=== PATIENT | female | born 1975 | race Caucasian/White ===

== ENCOUNTER 2019-03-01 06:28 | Inpatient (IN) | payer SELFPAY ==
[~2019-03-01] VITALS: Ht 165.1 cm; Wt 60.5 kg
[~2019-03-01 06:28] MED LIST: DOXY1TAB3 PO; HYDR25CA PO; IBUP-1773 PO; INDO25OR2 PO; PREN-53 PO; TRAM50TA2 PO
[2019-03-01] MEDS ORDERED: NS IV 1000 ML 1,000 ML IV ONE (06:39)
[2019-03-01] MEDS ORDERED: RT-ALBUTEROL/IPRATROPIUM 3 ML (DUONEB) VIAL INH ONE ×2 (06:45→07:15)
[2019-03-01 06:59] LABS: BASOPHILS % (AUTO) 0 % (0-10); EOSINOPHILS # (AUTO) 0.2 10^3/uL (0.0-0.3); EOSINOPHILS % (AUTO) 2 % (0-10); HEMATOCRIT 43 % (35-52); HEMOGLOBIN 14.2 G/DL (11.5-16.0); LYMPHOCYTES # (AUTO) 1.4 X 10^3 (1.0-4.0); LYMPHOCYTES % (AUTO) 11 % (12-44); MEAN CORPUSCULAR HEMOGLOBIN 32 PG (25-34); MEAN CORPUSCULAR HGB CONC 33 G/DL (32-36); MEAN CORPUSCULAR VOLUME 97 FL (80-99); MEAN PLATELET VOLUME 10.4 FL (7.4-10.4); MONOCYTES % (AUTO) 8 % (0-12); NEUTROPHILS % (AUTO) 79 % (42-75); PLATELET COUNT 224 10^3/uL (130-400); RED CELL DISTRIBUTION WIDTH 14.1 % (10.0-14.5); WHITE BLOOD COUNT 12.6 10^3/uL (4.3-11.0)
[2019-03-01] MEDS ORDERED: RT-ALBUTEROL SULF 2.5 MG/3 ML PRE-MIX VIAL INH STA (07:04)
[2019-03-01] MEDS ORDERED: methylPREDNISolone 125 MG (Solu-MEDROL) VIAL IVP ONE (07:15)
[2019-03-01] MEDS ORDERED: KETOROLAC 30 MG/ML VIAL IVP ONE (07:15)
[2019-03-01 07:17] LABS: ALANINE AMINOTRANSFERASE 11 U/L (0-55); ALBUMIN 4.3 GM/DL (3.2-4.5); ALKALINE PHOSPHATASE 54 U/L (40-136); BILIRUBIN,TOTAL 0.6 MG/DL (0.1-1.0); BUN/CREATININE RATIO 22; CALCIUM 9.8 MG/DL (8.5-10.1); CARBON DIOXIDE 26 MMOL/L (21-32); CHLORIDE 107 MMOL/L (98-107); CREATININE SERUM 0.64 MG/DL (0.60-1.30); GFR ESTIMATED > 60; GLUCOSE 98 MG/DL (70-105); POTASSIUM 3.5 MMOL/L (3.6-5.0); SODIUM 143 MMOL/L (135-145)
--- NOTE | 2019-03-01 07:46 | NUR ---
Pt unable to tolerate breathing treatment at this time. Treatment stopped by Dr. Patterson.
--- NOTE | 2019-03-01 08:10 | ED General ---
General Chief Complaint: Respiratory Problems Stated Complaint: SOB, SEVERE HEADACHE Nursing Triage Note: PT PRESENTS TO THE ED AMBULATORY FROM HOME, STATES SHE WAS SEEN IN PCP OFFICE 2-3 DAYS AGO FOR A NON PRODUCTIVE COUGH AND RESPIRATORY PROBLEMS, SHE WAS GIVEN ORAL MEDS AND SENT HOME, SINCE THEN PT REPORTS FEVERS AND CHILLS WITH EXERTIONAL SOB AND INTERMITTENT COUGH THAT IS SOME TIMES PRODUCTIVE OF GREENISH SPUTUM Nursing Sepsis Screen: Possible Sepsis Risk Source of Information: Patient Exam Limitations: No Limitations History of Present Illness Date Seen by Provider: Mar 01, 2019 Time Seen by Provider: 06:34 Initial Comments This 44-year-old woman presents to the emergency room with shortness of breath and wheezing. She has cough productive of green sputum. She is now febrile. She was seen a couple days ago in the clinic where she was prescribed azithromycin, prednisone, and Tessalon Perles. She continues to worsen despite these therapies. She also complains of intense headache. Allergies and Home Medications Allergies Coded Allergies: Penicillins (Verified Allergy, Unknown, 03/06/15) Home Medications Hydroxyzine Pamoate 25 Mg Capsule, 25 MG PO Q6H PRN for ANXIETY Prescribed by: VANDA SON on 06/06/16 1234 Tramadol HCl 50 Mg Tablet, 50 MG PO QID Prescribed by: RENEE MAY on 07/19/15 1151 Patient Home Medication List Home Medication List Reviewed: Yes Review of Systems Review of Systems Constitutional: see HPI EENTM: throat pain Respiratory: see HPI Cardiovascular: no symptoms reported Gastrointestinal: no symptoms reported Genitourinary: no symptoms reported : No Musculoskeletal: no symptoms reported Skin: no symptoms reported Psychiatric/Neurological: See HPI Hematologic/Lymphatic: No Symptoms Reported Immunological/Allergic: no symptoms reported Past Qwlevci-Pbwlkg-Ibqsor Hx Past Med/Social Hx: Reviewed and Corrections made Patient Social History Alcohol Use: Denies Use Recreational Drug Use: No Smoking Status: Current Everyday Smoker Type Used: Cigarettes Recent Foreign Travel: No Contact w/Someone Who Travel: No Recent Infectious Disease Expo: No Recent Hopitalizations: No Immunizations Up To Date Tetanus Booster (TDap): Unknown PED Vaccines UTD: Yes Past Medical History Surgeries: Yes (D&C, FOOT (SCREWS), PART OF CERVIX REMOVED) Respiratory: Yes (tobaccoism) Cardiac: Yes Irregular Heartbeat Neurological: No : No Last Menstrual Period: Feb 20, 2019 Reproductive Disorders: Yes (INCOMP. CERVIX) Female Reproductive Disorders: Denies Sexually Transmitted Disease: No HIV/AIDS: No Gastrointestinal: No Musculoskeletal: No Endocrine: No HEENT: No Loss of Vision: Bilateral Hearing Impairment: Denies Cancer: Yes Cervical Psychosocial: No Integumentary: No Blood Disorders: No Adverse Reaction/Blood Tranf: No Family Medical History Cancer of mouth FH: asthma (mother's side) FH: brain cancer FH: heart disease (Mother and father's side) FH: ovarian cancer (Mother's side) Physical Exam-Suspected Sepsis Physical Exam Vital Signs Vital Signs - First Documented 03/01/19 06:44 Temp 100.4 Pulse 117 Resp 22 B/P (MAP) 118/82 (94) Pulse Ox 90 O2 Delivery Room Air Capillary Refill : Less Than 3 Seconds Blood Pressure Mean: 94 Height, Weight, BMI Height: 5'3" Weight: 130lbs. 0.0oz. 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 as Tested Skin: normal color, warm/dry Focused Exam Lactate Level 03/01/19 06:46: Lactic Acid Level 1.15 Lactic Acid Level Laboratory Tests Test 03/01/19 06:46 Lactic Acid Level 1.15 MMOL/L (0.50-2.00) Progress/Results/Core Measures Suspected Sepsis Recent Fever Within 48 Hours: Yes Infection Criteria Present: Suspected New Infection New/Unexplained Altered Menta: No Sepsis Screen: Possible Sepsis Risk SIRS Temperature:100.4 Pulse: 117 Respiratory Rate: 22 Laboratory Tests 03/01/19 06:46: White Blood Count 12.6H Blood Pressure 118 /82 Mean: 94 03/01/19 06:46: Lactic Acid Level 1.15 Laboratory Tests 03/01/19 06:46: Creatinine 0.64, Platelet Count 224, Total Bilirubin 0.6 03/01/19 06:48: INR Comment 1.0 Results/Orders Lab Results Laboratory Tests Test 03/01/19 06:46 03/01/19 06:48 03/01/19 07:45 Range/Units White Blood Count 12.6 H 4.3-11.0 10^3/uL Red Blood Count 4.48 4.35-5.85 10^6/uL Hemoglobin 14.2 11.5-16.0 G/DL Hematocrit 43 35-52 % Mean Corpuscular Volume 97 80-99 FL Mean Corpuscular Hemoglobin 32 25-34 PG Mean Corpuscular Hemoglobin Concent 33 32-36 G/DL Red Cell Distribution Width 14.1 10.0-14.5 % Platelet Count 224 130-400 10^3/uL Mean Platelet Volume 10.4 7.4-10.4 FL Neutrophils (%) (Auto) 79 H 42-75 % Lymphocytes (%) (Auto) 11 L 12-44 % Monocytes (%) (Auto) 8 0-12 % Eosinophils (%) (Auto) 2 0-10 % Basophils (%) (Auto) 0 0-10 % Neutrophils # (Auto) 10.0 H 1.8-7.8 X 10^3 Lymphocytes # (Auto) 1.4 1.0-4.0 X 10^3 Monocytes # (Auto) 1.0 0.0-1.0 X 10^3 Eosinophils # (Auto) 0.2 0.0-0.3 10^3/uL Basophils # (Auto) 0.0 0.0-0.1 10^3/uL Sodium Level 143 135-145 MMOL/L Potassium Level 3.5 L 3.6-5.0 MMOL/L Chloride Level 107 98-107 MMOL/L Carbon Dioxide Level 26 21-32 MMOL/L Anion Gap 10 5-14 MMOL/L Blood Urea Nitrogen 14 7-18 MG/DL Creatinine 0.64 0.60-1.30 MG/DL Estimat Glomerular Filtration Rate > 60 BUN/Creatinine Ratio 22 Glucose Level 98 70-105 MG/DL Lactic Acid Level 1.15 0.50-2.00 MMOL/L Calcium Level 9.8 8.5-10.1 MG/DL Corrected Calcium 9.6 8.5-10.1 MG/DL Total Bilirubin 0.6 0.1-1.0 MG/DL Aspartate Amino Transf (AST/SGOT) 12 5-34 U/L Alanine Aminotransferase (ALT/SGPT) 11 0-55 U/L Alkaline Phosphatase 54 40-136 U/L C-Reactive Protein High Sensitivity 0.92 H 0.00-0.50 MG/DL Total Protein 7.0 6.4-8.2 GM/DL Albumin 4.3 3.2-4.5 GM/DL Serum Test, Qualitative NEGATIVE NEGATIVE Prothrombin Time 13.4 12.2-14.7 SEC INR Comment 1.0 0.8-1.4 Activated Partial Thromboplast Time 34 24-35 SEC Urine Color YELLOW Urine Clarity CLEAR Urine pH 7 5-9 Urine Specific [place] 1.010 L 1.016-1.022 Urine Protein NEGATIVE NEGATIVE Urine Glucose (UA) NEGATIVE NEGATIVE Urine Ketones NEGATIVE NEGATIVE Urine Nitrite NEGATIVE NEGATIVE Urine Bilirubin NEGATIVE NEGATIVE Urine Urobilinogen NORMAL NORMAL MG/DL Urine Leukocyte Esterase NEGATIVE NEGATIVE Urine RBC (Auto) NEGATIVE NEGATIVE Urine RBC NONE /HPF Urine WBC NONE /HPF Urine Squamous Epithelial Cells RARE /HPF Urine Crystals NONE /LPF Urine Bacteria NEGATIVE /HPF Urine Casts NONE /LPF Urine Mucus NEGATIVE /LPF Urine Culture Indicated CULTURE PENDING Micro Results Microbiology 03/01/19 Influenza Types A,B Antigen (MANJU) - Final, Complete My Orders Orders - FRANSISCO RODRÍGUEZ MD Albuterol/Ipra Inhalation Soln (Duoneb I (03/01/19 06:45) Svn Small Volume Nebulizer (03/01/19 06:39) Cbc With Automated Diff (03/01/19 06:39) Comprehensive Metabolic Panel (03/01/19 06:39) Hs C Reactive Protein (03/01/19 06:39) Hcg,Qualitative Serum (03/01/19 06:39) Influenza A And B Antigens (03/01/19 06:39) Chest Pa/Lat (2 View) (03/01/19 06:39) Ed Iv/Invasive Line Start (03/01/19 06:39) Ns Iv 1000 Ml (Sodium Chloride 0.9%) (03/01/19 06:39) Methylprednisolone Sod Succ (Solu-Medrol (03/01/19 07:15) Ketorolac Injection (Toradol Injection) (03/01/19 07:15) Albuterol Pre-Mix Nebs (Rt) (Proventil (03/01/19 07:04) Albuterol/Ipra Inhalation Soln (Duoneb I (03/01/19 07:15) Svn Small Volume Nebulizer (03/01/19 07:04) Svn Small Volume Nebulizer (03/01/19 07:04) Blood Culture (03/01/19 07:47) Sputum Culture (03/01/19 07:47) Urinalysis (03/01/19 07:47) Urine Culture (03/01/19 07:47) Protime With Inr (03/01/19 07:47) Partial Thromboplastin Time (03/01/19 07:47) Vital Signs Adult Sepsis Patie Q15M (03/01/19 07:47) O2 (03/01/19 07:47) Remove Rings In Anticipation O (03/01/19 07:47) Lactic Acid Analyzer (03/01/19 07:47) Acetaminophen Tablet (Tylenol Tablet) (03/01/19 08:45) Levofloxacin 750 Mg/150 Ml Iv (Levaquin (03/01/19 08:45) Medications Given in ED Current Medications Medications Dose Ordered Sig/Juan Pablo Route Start Time Stop Time Status Last Admin Dose Admin Acetaminophen 1,000 mg ONCE ONCE PO 03/01/19 08:45 03/01/19 08:46 03/01/19 08:36 1,000 MG Albuterol/ Ipratropium 3 ml ONCE ONCE INH 03/01/19 06:45 03/01/19 06:46 DC 03/01/19 06:47 3 ML Albuterol/ Ipratropium 3 ml ONCE ONCE INH 03/01/19 07:15 03/01/19 07:16 DC 03/01/19 07:10 3 ML Ketorolac Tromethamine 15 mg ONCE ONCE IVP 03/01/19 07:15 03/01/19 07:16 DC 03/01/19 07:15 15 MG Methylprednisolone Sodium Succinate 125 mg ONCE ONCE IVP 03/01/19 07:15 03/01/19 07:16 DC 03/01/19 07:17 125 MG Sodium Chloride 1,000 ml @ 0 mls/hr Q0M ONCE IV 03/01/19 06:39 03/01/19 06:42 DC 03/01/19 07:14 1,000 MLS/HR Vital Signs/I&O 03/01/19 03/01/19 03/01/19 06:44 06:47 07:11 Temp 100.4 Pulse 117 Resp 22 B/P (MAP) 118/82 (94) Pulse Ox 90 93 95 O2 Delivery Room Air Room Air Room Air Capillary Refill : Less Than 3 Seconds Blood Pressure Mean: 94 Progress Note #1: Time: 08:10 Progress Note Patient was immediately seen and examined. She was still tight and wheezing after DuoNeb treatment. An hour-long treatment was started. Patient had intolerable coughing during the nebulizer treatment and had to take a break. She was reexamined part way through the nebulizer treatment and did have impro vement in wheezing but still had reduced air movement. Nebulizer treatment- induced production of dark green sputum. IV fluids were initiated. Toradol was given for headache. Solu-Medrol was administered for treatment of wheezing. Chest x-ray has been reviewed. No overt pneumonia was identified. Report is pending. Patient was allowed to take her home propranolol at her request. Progress Note #2: Time: 08:44 Progress Note Patient is fairly comfortable now after completing the hour-long treatment. She has able to rest and her coughing has ceased. The radiologist read her x-ray as suspected pneumonia with bibasilar infiltrates. Levaquin is being administered due to penicillin allergy. Case was discussed with Dr. Hopkins and Dr. Gan who agrees with admission. Orders were reviewed. Diagnostic Imaging Diagonstic Imaging: Xray Plain Films/CT/US/NM/MRI: chest Comments Chest x-ray viewed by me and report reviewed. See report below: NAME: ERIN KLEIN [facility] REC#: [id number] PT STATUS: REG ER : 1975 PHYSICIAN: FRANSISCO RODRÍGUEZ MD ADMIT DATE: 03/01/19/ER Draft Date of Exam:03/01/19 CHEST PA/LAT (2 VIEW) Indication: Cough and fever and chills PA and lateral chest obtained at 8:02 hours am, and compared to 06/06/2016. Heart is normal in size. Mediastinal silhouette is unremarkable. There is hyperinflation compatible with COPD. There is mild bibasilar infiltrates, suspect early pneumonia. Followup is recommended. There is no pneumothorax or pleural fluid. IMPRESSION: COPD changes. There appear to be mild bibasilar infiltrates, suspect early pneumonia. Followup is recommended. Dictated on workstation # [id number] Dict: 03/01/19 0803 Trans: 03/01/19 0809 [place] [id number] Interpreted by: AMILCAR GREENWOOD MD Departure Communication (Admissions) Time/Spoke to Admitting Phy: 08:30 Dr. Hopkins Time/Spoke to Consulting Phy: 08:30 Dr. Gan Impression Primary Impression: Bilateral pneumonia Qualified Codes: J18.1 - Lobar pneumonia, unspecified organism Additional Impressions: Sepsis Qualified Codes: A41.9 - Sepsis, unspecified organism COPD exacerbation Disposition: ADMITTED INPATIENT Condition: Improved Admissions Decision to Admit Reason: Admit from ER (General) Decision to Admit/Date: Mar 01, 2019 Time/Decision to Admit Time: 08:15 Departure-Patient Inst. Referrals: OPAL PINEDA MD (PCP/Family) Primary Care Physician FRANSISCO RODRÍGUEZ MD Mar 01, 2019 08:10
[2019-03-01 08:12] LABS: PROTHROMBIN TIME PATIENT 13.4 SEC (12.2-14.7)
[2019-03-01 08:17] LABS: BILIRUBIN,URINE NEGATIVE (NEGATIVE); CLARITY,URINE CLEAR; COLOR,URINE YELLOW; GLUCOSE, URINE (UA) NEGATIVE (NEGATIVE); KETONES,URINE NEGATIVE (NEGATIVE); LEUKOCYTE ESTERASE ,URINE NEGATIVE (NEGATIVE); NITRITE,URINE NEGATIVE (NEGATIVE); PH,URINE 7 (5-9); PROTEIN,URINE NEGATIVE (NEGATIVE); UROBILINOGEN,URINE NORMAL (NORMAL)
[2019-03-01 08:27] LABS: BACTERIA,URINE NEGATIVE /HPF; SQUAMOUS EPITHELIAL CELL,UR RARE /HPF
[2019-03-01] MEDS ORDERED: ACETAMINOPHEN 500 MG TAB (TYLENOL) PO ONE (08:45)
[2019-03-01] MEDS ORDERED: LEVOFLOXACIN 750 MG/150 ML IV 150 ML IV ONE (08:45)
--- NOTE | 2019-03-01 10:00 | NUR ---
Approximately 75 ml of levaquin in when pt began complaining of itching. Dr. Patterson notified and IV stopped
[2019-03-01] MEDS ORDERED: diphenhydrAMINE 50 MG/ML INJ (BENADRYL) IVP ONE (10:15)
[2019-03-01] MEDS ORDERED: MEROPENEM 1,000 MG in WATER (STERILE) FOR INJECTION 20 ML IV ONE (10:15)
[2019-03-01 11:20] VITALS: BP 102/59
--- NOTE | 2019-03-01 11:25 | NUR ---
ERIN KLEIN admitted to room 431-1, with an admitting diagnosis of SEPSIS, PNEUMONIA, COPD, on 03/01/19 from ER via W/C, accompanied by STAFF.ERIN KLEIN introduced to surroundings, call light, bed controls, phone, TV, temperature control, lights, meal times, smoking policy, visitor policy, side rail policy, bathrooms and showers. Patient Rights given to patient in the handbook.ERNIEEUGENIO verbalizes understanding that [facility] is not responsible for the loss or damage to any personal effects or valuables that are kept in the patients posession during their hospitalization. The following Patient Care Plans were discussed with the PT: Discharge Planning, PAIN CONTROL,IV THERAPY AND ANTIBIOTIC TX, and TESTS AND PROCEDURES AND RT TX. ERIN KLEIN verbalizes understanding of Interdisciplinary Patient Education. Patient and/or family were informed about the Rapid Response Team and its purpose.
[2019-03-01 11:44] VITALS: BP 105/75
--- NOTE | 2019-03-01 12:39 | Pulmonary Consultation ---
EDA JARAMILLO,MED STUDENT 03/01/19 1239: History of Present Illness History of Present Illness Date of Consultation 03/01/19 12:34 Time Seen by Provider: 11:00 Date of Admission History of Present Illness patient is a 44-year-old caucasin female that presented to the ED with SOB and wheezing. She has a productive cough with green/yellow sputum. Symptoms started around wednesday and she went to the doctor to get treated and was prescribed azithromycin, prednisone and tessalon perles. her symptoms did not improve which resulted in her coming to the ED. She says that she is a current everyday smoker of 1-2ppd for >20 yrs. She denies any prior respiratory conditions but does adm it to having a irregular heart beat which she takes meds for. Patient is anxious, wants to leave and is over a poor historian. ROS - denies: nausea, vomiting, stomach pain, fever, chills - admits to SOB, productive cough, light-headed, headache, chest pain, malaise, photosensitivity Allergies and Home Medications Allergies Coded Allergies: levofloxacin (Verified Allergy, Mild, Itching, 03/01/19) Penicillins (Verified Allergy, Unknown, 03/06/15) Home Medications Albuterol Sulfate 1 Puff Puff, 2 PUFF IH Q4H PRN for SHORTNESS OF BREATH, (Reported) 1 PUFF = 90 MCG Ascorbic Acid/Ascorbate Sodium 250 Mg Tab.chew, 2 TAB.CHEW PO DAILY, (Reported) Benzonatate 100 Mg Capsule, 100 MG PO TID PRN for COUGH, (Reported) Doxycycline Hyclate 100 Mg Tablet, 100 MG PO BID@07,17 Prescribed by: MAXWELL ARNGEL on 03/03/19 08 Fluticasone Propionate 16 Gm [place].susp, 2 SPRAYS NS DAILY, (Reported) Ibuprofen 200 Mg Tablet, 600 MG PO TID, (Reported) TAKES 3 (200MG) TABLETS Multivit with Calcium,Iron,Min 1 Each Tablet, 1 TAB PO DAILY, (Reported) [place]-3 Fatty Acids 1,000 Mg Capsule, 1,000 MG PO HS, (Reported) Prednisone 10 Mg Tab, 0 PO UD Take 4 tabs (40mg) daily, decrease by 1 tab (10mg) daily. Prescribed by: MAXWELL RANGEL on 03/03/19 08 Propranolol HCl 20 Mg Tablet, 10 MG PO QID, (Reported) TAKES 1/2 (20MG) TABLET Vitamin B Complex 1 Each Capsule, 1 CAP PO HS, (Reported) Past Xvbpdfx-Lawwrw-Tnvsvb Hx Past Med/Social Hx: Reviewed and Corrections made Patient Social History Alcohol Use: Denies Use Recreational Drug Use: No Smoking Status: Current Everyday Smoker (2ppd for >20yrs ) Type Used: Cigarettes Recent Foreign Travel: No Contact w/Someone Who Travel: No Recent Infectious Disease Expo: No Recent Hopitalizations: No Immunizations Up To Date Tetanus Booster (TDap): Unknown PED Vaccines UTD: Yes Past Medical History Surgeries: Yes (D&C, FOOT (SCREWS), PART OF CERVIX REMOVED) Hysterectomy (partial cervicectomy ) Respiratory: Yes (tobaccoism) Cardiac: Yes ("irregular heart beat" - patient ) Atrial Fibrillation, Irregular Heartbeat Neurological: No : No Last Menstrual Period: Feb 20, 2019 Reproductive Disorders: Yes (INCOMP. CERVIX) Female Reproductive Disorders: Denies Sexually Transmitted Disease: No HIV/AIDS: No Gastrointestinal: No Musculoskeletal: No Endocrine: No HEENT: No Loss of Vision: Bilateral Hearing Impairment: Denies Cancer: Yes Cervical Psychosocial: No Integumentary: No Blood Disorders: No Adverse Reaction/Blood Tranf: No Family Medical History Cancer of mouth Congenital heart disease 19 FATHER FH: asthma (mother's side) 19 MOTHER FH: brain cancer FH: heart disease (Mother and father's side) FH: ovarian cancer (Mother's side) Review of Systems Constitutional: Malaise; No: Fever, Chills Eyes: No: Vision change Respiratory: Cough, Shortness of breath, SOB with excertion, Sputum Cardiovascular: Chest Pain (stenal chest pain ), Lt Headedness Gastrointestinal: No: Nausea, Vomiting, Abdominal Pain Sepsis Event Evaluation Height, Weight, BMI Height: 5'5.00" Weight: 133lbs. 6.0oz. 60.982800pd; 22.2 BMI Method:Estimated Exam Exam Vital Signs Date Time Temp Pulse Resp B/P (MAP) Pulse Ox O2 Delivery O2 Flow Rate FiO2 03/01/19 11:44 99.1 82 20 105/75 95 Room Air 03/01/19 11:36 Room Air 03/01/19 11:20 98.2 102 20 102/59 (73) 94 Room Air 03/01/19 11:11 99.1 82 20 105/75 (85) 95 Room Air 03/01/19 07:11 95 Room Air 03/01/19 06:47 93 Room Air 03/01/19 06:44 100.4 117 22 118/82 (94) 90 Room Air Height & Weight Height: 5'5.00" Weight: 133lbs. 6.0oz. 60.743454vq; 22.2 BMI Method:Estimated General Appearance: WD/WN, Moderate Distress Neck: Normal Inspection Respiratory: Lungs Clear, Normal Breath Sounds, No Accessory Muscle Use, No Respiratory Distress Cardiovascular: No Edema, No Murmur, Tachycardia Capillary Refill: Less Than 3 Seconds Peripheral Pulses: 2+ Dorsalis Pedis (R), 2+ Left Dors-Pedis (L), 2+ Radial Pulses (R), 2+ Radial Pulses (L) Gastrointestinal: normal bowel sounds, non tender, soft Extremity: Normal Inspection, Non Tender, No Calf Tenderness, No Pedal Edema Neurologic/Psychiatric: Alert, Oriented x3, No Motor/Sensory Deficits, Normal Mood/Affect, 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 Norm as Tested Skin: Normal Color, Warm/Dry Results Lab Laboratory Tests 03/01/19 06:46 Assessment/Plan Assessment/Plan Acute respiratory distress - possible exaceration of undiagnosised asthma, COPD, - CXR finding show hyperinflation of lungs compatible with early COPD changes - indication of early pneumonia - Albuterol - albuterol/ipratropium suspected sepsis likely d/t to pneumonia - CXR - sputum and blood cultures - IV meropenem - IV NS bolus DL GAN DO 03/01/19 1430: History of Present Illness History of Present Illness Time Seen by Provider: 14:24 History of Present Illness 44yo current smoker presented to ED secondary to worsening SOB, green/yellow sputum production and wheezing. she was Rx azithromycin, and prednisone as an out pt. Everyday smoker of 1-2ppd for >20 yrs. Denies: nausea, vomiting, stomach pain, fever, chills. Allergies and Home Medications Allergies Coded Allergies: levofloxacin (Verified Allergy, Mild, Itching, 03/01/19) Penicillins (Verified Allergy, Unknown, 03/06/15) Home Medications Albuterol Sulfate 1 Puff Puff, 2 PUFF IH Q4H PRN for SHORTNESS OF BREATH, (Reported) 1 PUFF = 90 MCG Ascorbic Acid/Ascorbate Sodium 250 Mg Tab.chew, 2 TAB.CHEW PO DAILY, (Reported) Benzonatate 100 Mg Capsule, 100 MG PO TID PRN for COUGH, (Reported) Doxycycline Hyclate 100 Mg Tablet, 100 MG PO BID@07,17 Prescribed by: MAXWELL RANGEL on 03/03/19 08 Fluticasone Propionate 16 Gm [place].susp, 2 SPRAYS NS DAILY, (Reported) Ibuprofen 200 Mg Tablet, 600 MG PO TID, (Reported) TAKES 3 (200MG) TABLETS Multivit with Calcium,Iron,Min 1 Each Tablet, 1 TAB PO DAILY, (Reported) [place]-3 Fatty Acids 1,000 Mg Capsule, 1,000 MG PO HS, (Reported) Prednisone 10 Mg Tab, 0 PO UD Take 4 tabs (40mg) daily, decrease by 1 tab (10mg) daily. Prescribed by: MAXWELL RANGEL on 03/03/19805 Propranolol HCl 20 Mg Tablet, 10 MG PO QID, (Reported) TAKES 1/2 (20MG) TABLET Vitamin B Complex 1 Each Capsule, 1 CAP PO HS, (Reported) Past Apzifiz-Xekwaz-Zftqbd Hx Family Medical History Cancer of mouth Congenital heart disease 19 FATHER FH: asthma (mother's side) 19 MOTHER FH: brain cancer FH: heart disease (Mother and father's side) FH: ovarian cancer (Mother's side) Review of Systems Time Seen by Provider: 07:10 Constitutional: No: Fever, Chills Eyes: No: Vision change Respiratory: Cough, Shortness of breath, SOB with excertion, Sputum Cardiovascular: Chest Pain (stenal chest pain ), Lt Headedness Gastrointestinal: No: Nausea, Vomiting, Abdominal Pain Exam Exam General Appearance: WD/WN, Moderate Distress Respiratory: Normal Breath Sounds, No Accessory Muscle Use, No Respiratory Distress, Wheezing Cardiovascular: No Edema, No Murmur, Tachycardia Gastrointestinal: normal bowel sounds, non tender, soft Extremity: Normal Inspection, Non Tender, No Calf Tenderness, No Pedal Edema Neurologic/Psychiatric: Alert, Oriented x3, No Motor/Sensory Deficits, Normal Mood/Affect, 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 I re viewed and verified all information documented by the medical student and made modifications to such information, when appropriate. I personally performed the physical exam and medical decision making. Dl Gan, Mar 01, 2019,14:35 Supervisory-Addendum Brief Verification & Attestation Participated in pt care: history Personally performed: exam, history Care discussed with: Medical Student Procedures: n/a Verification and Attestation of Medical Student E/M Service A medical student performed and documented this service in my presence. I reviewed and verified all information documented by the medical student and made modifications to such information, when appropriate. I personally performed the physical exam and medical decision making. Dl Gan, Mar 07, 2019,07:09 EDA JARAMILLO,MED STUDENT Mar 01, 2019 12:39 DL GAN DO Mar 01, 2019 14:30
[2019-03-01] MEDS ORDERED: NICOTINE PATCH REMOVAL TP PRN (12:45)
[2019-03-01] MEDS ORDERED: ACETAMINOPHEN 500 MG TAB (TYLENOL) PO PRN (12:45)
[2019-03-01] MEDS ORDERED: RT-ALBUTEROL SULF 2.5 MG/3 ML PRE-MIX VIAL IH PRN (12:45)
[2019-03-01] MEDS ORDERED: CATHETER FLUSH 10 ML SYR IV PRN (12:45)
[2019-03-01] MEDS ORDERED: NICOTINE 21 MG (NICODERM) PATCH TD PRN (12:45)
[2019-03-01] MEDS: ENOXAPARIN 40 MG/0.4 ML (LOVENOX) SYR SQ SCH (12:50)
[2019-03-01] MEDS: NS IV 1000 ML 1,000 ML IV SCH ×2 (12:50→19:38)
[2019-03-01] MEDS: methylPREDNISolone 40 MG/ML (Solu-MEDROL) VIAL IV SCH ×2 (12:58→17:17)
[2019-03-01] MEDS ORDERED: BENZ-36 PO (13:29)
[2019-03-01] MEDS ORDERED: FLUT16SP22 NS (13:30)
[2019-03-01] MEDS ORDERED: AZIT250T12 PO (13:30)
[2019-03-01] MEDS ORDERED: PROP20TA5 PO (13:30)
[2019-03-01] MEDS ORDERED: RT-ALBUINH IH (13:30)
[2019-03-01] MEDS ORDERED: PRD50T PO (13:30)
[2019-03-01] MEDS ORDERED: VITA1CAP19 PO (13:31)
[2019-03-01] MEDS ORDERED: OMEG10005 PO (13:31)
[2019-03-01] MEDS ORDERED: [UNRECOGNIZED DRUG - CODE] PO (13:31)
[2019-03-01] MEDS ORDERED: IBUP-30 PO (13:31)
[2019-03-01] MEDS ORDERED: MULT-141 PO (13:31)
--- NOTE | 2019-03-01 13:32 | NUR ---
SPOKE WITH THE PATIENT ABOUT HER MEDICATIONS. SHE HAS THE THREE SCRIPTS SHE FILLED FROM THE WALK IN CLINIC WITH HER ON 02-26-19 - SHE STATES SHE HAS NOT FINISHED THEM YET. SHE ALSO HAS HER PROPRANOLOL FILLED 20MG BID #60 02-21-19 - SHE STATES SHE CAN NOT TAKE A WHOLE TABLET AT ONCE SO SHE TAKES 1/2 TAB QID. SHE ALSO REPORTS SHE USES FLONASE DAILY AND AN ALBUTEROL INHALER NEEDED. SHE TAKES THE FOLLOWING OTC: VITAMIN C GUMMIE 2 DAILY WOMEN'S ONE DAILY DAILY OMEGA 3 HS SUPER B COMPLEX HS IBU 3 TABS TID
[2019-03-01] MEDS: RT-ALBUTEROL/IPRATROPIUM 3 ML (DUONEB) VIAL IH SCH ×3 (14:48→22:56)
[2019-03-01 15:22] LABS: ABG BASE EXCESS 0.2 MMOL/L (-2.5-2.5); ABG OXYGEN SATURATION 96 % (94-100); ABG PCO2 35 MMHG (35-45); ABG PH 7.45 (7.37-7.43); ABG PO2 69 MMHG (79-93); ABG TCO2 24.9 MMOL/L (21.0-31.0)
[2019-03-01 15:26] LABS: ALLENS TEST POSITIVE; INSPIRED O2 21%; PATIENT TEMP 97.6; VENTILATOR NO
[2019-03-01 15:54] VITALS: BP 102/65
[2019-03-01] MEDS: IBUPROFEN 600 MG (MOTRIN) TAB PO PRN (16:53)
[2019-03-01] MEDS ORDERED: PATIENT MAY USE OWN MED,SINGLE MED PO SCH (17:15)
[2019-03-01] MEDS: MEROPENEM 500 MG/SWFI 10 ML IV PUSH IV SCH ×2 (17:18)
[2019-03-01 20:07] VITALS: BP 114/69
[2019-03-01] MEDS: PROPRANOLOL 20 MG (INDERAL) TABLET PO SCH (20:31)
--- NOTE | 2019-03-01 20:34 | History & Physical ---
HPI History of Present Illness: 44 yo female came to ER due to feeling poorly- short of breath, coughing, headache, rib and abdominal pain with coughing and feeling hot and cold. She was seen on Wednesday and given azithromycin and tessalon, felt slightly better for a brief period but then became worse again. Denies history of COPD or asthma, but does have inhaler she has used in past when sick. Date seen by provider: Mar 01, 2019 Time Seen by Provider: 11:30 Attending Physician Saba Hopkins MD PCP Silas Babb MD Consult Date of Admission Mar 01, 2019 at 09:47 Home Medications Home Medications Reviewed patient Home Medication Reconciliation performed by pharmacy medication reconciliations wildlife biology technician and/or nursing. Patients Allergies have been reviewed. Allergies Coded Allergies: levofloxacin (Verified Allergy, Mild, Itching, 03/01/19) Penicillins (Verified Allergy, Unknown, 03/06/15) WPI-Hczqgx-Tdlwnj Hx Patient Social History Alcohol Use: Denies Use Recreational Drug Use: No Smoking Status: Current Everyday Smoker (2ppd for >20yrs ) Type Used: Cigarettes Recent Foreign Travel: No Contact w/other who traveled: No Recent Hopitalizations: No Recent Infectious Disease Expo: No Physical Abuse Screen: No Sexual Abuse: No Immunizations Up To Date Tetanus Booster (TDap): Unknown Past Medical History PMHx: Denies Family Medical History Family History: Cancer of mouth Congenital heart disease 19 FATHER FH: asthma (mother's side) 19 MOTHER FH: brain cancer FH: heart disease (Mother and father's side) FH: ovarian cancer (Mother's side) Review of Systems ([facility]) Constitutional: chills, fever, malaise EENTM: nose congestion, throat pain Respiratory: cough, short of breath Cardiovascular: No chest pain Gastrointestinal: abdominal pain; No constipation, No diarrhea; nausea; No vomiting Genitourinary: No dysuria Musculoskeletal: No joint pain, No muscle pain Skin: No rash Reviewed Test Results Reviewed Test Results Lab Laboratory Tests Test 03/01/19 06:46 03/01/19 06:48 03/01/19 07:45 03/01/19 15:14 Range/Units White Blood Count 12.6 H 4.3-11.0 10^3/uL Red Blood Count 4.48 4.35-5.85 10^6/uL Hemoglobin 14.2 11.5-16.0 G/DL Hematocrit 43 35-52 % Mean Corpuscular Volume 97 80-99 FL Mean Corpuscular Hemoglobin 32 25-34 PG Mean Corpuscular Hemoglobin Concent 33 32-36 G/DL Red Cell Distribution Width 14.1 10.0-14.5 % Platelet Count 224 130-400 10^3/uL Mean Platelet Volume 10.4 7.4-10.4 FL Neutrophils (%) (Auto) 79 H 42-75 % Lymphocytes (%) (Auto) 11 L 12-44 % Monocytes (%) (Auto) 8 0-12 % Eosinophils (%) (Auto) 2 0-10 % Basophils (%) (Auto) 0 0-10 % Neutrophils # (Auto) 10.0 H 1.8-7.8 X 10^3 Lymphocytes # (Auto) 1.4 1.0-4.0 X 10^3 Monocytes # (Auto) 1.0 0.0-1.0 X 10^3 Eosinophils # (Auto) 0.2 0.0-0.3 10^3/uL Basophils # (Auto) 0.0 0.0-0.1 10^3/uL Sodium Level 143 135-145 MMOL/L Potassium Level 3.5 L 3.6-5.0 MMOL/L Chloride Level 107 98-107 MMOL/L Carbon Dioxide Level 26 21-32 MMOL/L Anion Gap 10 5-14 MMOL/L Blood Urea Nitrogen 14 7-18 MG/DL Creatinine 0.64 0.60-1.30 MG/DL Estimat Glomerular Filtration Rate > 60 BUN/Creatinine Ratio 22 Glucose Level 98 70-105 MG/DL Lactic Acid Level 1.15 0.50-2.00 MMOL/L Calcium Level 9.8 8.5-10.1 MG/DL Corrected Calcium 9.6 8.5-10.1 MG/DL Total Bilirubin 0.6 0.1-1.0 MG/DL Aspartate Amino Transf (AST/SGOT) 12 5-34 U/L Alanine Aminotransferase (ALT/SGPT) 11 0-55 U/L Alkaline Phosphatase 54 40-136 U/L C-Reactive Protein High Sensitivity 0.92 H 0.00-0.50 MG/DL Total Protein 7.0 6.4-8.2 GM/DL Albumin 4.3 3.2-4.5 GM/DL Serum Test, Qualitative NEGATIVE NEGATIVE Prothrombin Time 13.4 12.2-14.7 SEC INR Comment 1.0 0.8-1.4 Activated Partial Thromboplast Time 34 24-35 SEC Urine Color YELLOW Urine Clarity CLEAR Urine pH 7 5-9 Urine Specific [place] 1.010 L 1.016-1.022 Urine Protein NEGATIVE NEGATIVE Urine Glucose (UA) NEGATIVE NEGATIVE Urine Ketones NEGATIVE NEGATIVE Urine Nitrite NEGATIVE NEGATIVE Urine Bilirubin NEGATIVE NEGATIVE Urine Urobilinogen NORMAL NORMAL MG/DL Urine Leukocyte Esterase NEGATIVE NEGATIVE Urine RBC (Auto) NEGATIVE NEGATIVE Urine RBC NONE /HPF Urine WBC NONE /HPF Urine Squamous Epithelial Cells RARE /HPF Urine Crystals NONE /LPF Urine Bacteria NEGATIVE /HPF Urine Casts NONE /LPF Urine Mucus NEGATIVE /LPF Urine Culture Indicated CULTURE PENDING Blood Gas Puncture Site RIGHT RADIAL Blood Gas Patient Temperature 97.6 Arterial Blood pH 7.45 H 7.37-7.43 Arterial Blood Partial Pressure CO2 35 35-45 MMHG Arterial Blood Partial Pressure O2 69 L 79-93 MMHG Arterial Blood HCO3 24 23-27 MMOL/L Arterial Blood Total CO2 24.9 21.0-31.0 MMOL/L Arterial Blood Oxygen Saturation 96 94-100 % Arterial Blood Base Excess 0.2 -2.5-2.5 MMOL/L Humphrey Test POSITIVE Blood Gas Ventilator Setting NO Blood Gas Inspired Oxygen 21% Radiology CXR 03/01- patchy bibasilar infiltrates, COPD type changes Physical Exam-(CHC) Physical Exam Vital Signs VS - Last 72 Hours, by Label 03/01/19 03/01/19 03/01/19 03/01/19 06:44 06:47 07:11 11:11 Temp 100.4 99.1 Pulse 117 82 Resp 22 20 B/P (MAP) 118/82 (94) 105/75 (85) Pulse Ox 90 93 95 95 O2 Delivery Room Air Room Air Room Air Room Air 03/01/19 03/01/19 03/01/19 03/01/19 11:20 11:36 11:44 13:56 Temp 98.2 99.1 Pulse 102 82 86 Resp 20 20 B/P (MAP) 102/59 (73) 105/75 Pulse Ox 94 95 O2 Delivery Room Air Room Air Room Air 03/01/19 03/01/19 03/01/19 14:48 15:54 20:07 Temp 98.7 98.7 Pulse 84 63 Resp 20 20 B/P (MAP) 102/65 (77) 114/69 (84) Pulse Ox 94 95 97 O2 Delivery Room Air Room Air Room Air Capillary Refill : Less Than 3 Seconds General Appearance: mild distress Respiratory: lungs clear, normal breath sounds Cardiovascular: regular rate, rhythm, no murmur Gastrointestinal: normal bowel sounds, non tender, soft Extremities: no pedal edema Neurologic/Psychiatric: other (somnolent) Skin: normal color, warm/dry Assessment/Plan Assessment/Plan Admission Status: Inpatient Order (span 2 midnights) Reason for Inpatient Admission: Pneumonia, anticipate 2 nights at least for recovery (1) Bilateral pneumonia Status: Acute Assessment & Plan: Started on meropenem, allergic to PCN and levofloxacin. Flu neg. Qualifiers: Qualified Codes: J18.1 - Lobar pneumonia, unspecified organism (2) Sepsis Status: Acute Assessment & Plan: Leukocytosis, tachycardia and fever on admit. No evidence of severe sepsis. Qualifiers: Qualified Codes: A41.9 - Sepsis, unspecified organism (3) COPD exacerbation Status: Acute Assessment & Plan: Suspected, although no prior dx of COPD. Duonebs, Solumedrol. (4) DVT prophylaxis Status: Acute Assessment & Plan: Enoxaparin Clinical Quality Measures DVT/VTE Risk/Contraindication: Risk Factor Score Per Nursin RFS Level Per Nursing on Admit: 3=High SABA HOPKINS MD Mar 01, 2019 20:34
[2019-03-02 00:29] VITALS: BP 99/61
[2019-03-02] MEDS: MEROPENEM 500 MG/SWFI 10 ML IV PUSH IV SCH ×4 (00:37→05:52)
[2019-03-02] MEDS: methylPREDNISolone 40 MG/ML (Solu-MEDROL) VIAL IV SCH ×2 (00:37→05:52)
[2019-03-02] MEDS: RT-ALBUTEROL/IPRATROPIUM 3 ML (DUONEB) VIAL IH SCH ×6 (03:47→22:38)
[2019-03-02 04:11] VITALS: BP 108/70
[2019-03-02] MEDS: NS IV 1000 ML 1,000 ML IV SCH ×3 (05:52→23:21)
--- NOTE | 2019-03-02 06:35 | Pulmonary Progress Note ---
EDA JARAMILLO,MED STUDENT 03/02/19 0634: Subjective Date Seen by a Provider: Mar 02, 2019 Time Seen by a Provider: 06:31 Subjective/Events-last exam Patient says that she is feeling better but has not been sleep much since she started taking the steroids she was prescribed on Wednesday. She says she has a non-productive cough, some lightheadedness when she initially tries to get up, and a slight headache but denies, SOB, fever, chills, nausea, vomiting, stomach pain, chest pain Sepsis Event Evaluation Height, Weight, BMI Height: 5'5.00" Weight: 133lbs. 6.0oz. [id number]; 22.2 BMI Method:Estimated Focused Exam Lactate Level 03/01/19 06:46: Lactic Acid Level 1.15 Exam Exam Vital Signs Date Time Temp Pulse Resp B/P (MAP) Pulse Ox O2 Delivery O2 Flow Rate FiO2 03/02/19 04:11 98.6 72 18 108/70 (83) 94 Room Air 03/02/19 03:47 91 Room Air 03/02/19 01:00 72 03/02/19 00:29 97.9 74 21 99/61 (74) 93 Room Air 03/01/19 22:56 93 Room Air 03/01/19 21:00 Room Air 03/01/19 20:07 98.7 63 20 114/69 (84) 97 Room Air 03/01/19 19:54 95 Nasal Cannula 2.00 03/01/19 19:00 66 03/01/19 15:54 98.7 84 20 102/65 (77) 95 Room Air 03/01/19 14:48 94 Room Air 03/01/19 13:56 86 03/01/19 11:44 99.1 82 20 105/75 95 Room Air 03/01/19 11:36 Room Air 03/01/19 11:20 98.2 102 20 102/59 (73) 94 Room Air 03/01/19 11:11 99.1 82 20 105/75 (85) 95 Room Air 03/01/19 07:11 95 Room Air 03/01/19 06:47 93 Room Air 03/01/19 06:44 100.4 117 22 118/82 (94) 90 Room Air I & O 03/02/19 07:00 Intake Total 2180 ml Output Total 1550 ml Balance 630 ml Height & Weight Height: 5'5.00" Weight: 133lbs. 6.0oz. 60.230840gv; 22.2 BMI Method:Estimated General Appearance: No Apparent Distress, WD/WN Neck: Normal Inspection Respiratory: Lungs Clear, No Accessory Muscle Use, No Respiratory Distress, Exp iration, Inspiration, Wheezing Cardiovascular: Regular Rate, Rhythm, No Edema, No Murmur, Normal Peripheral Pulses Capillary Refill: Less Than 3 Seconds Peripheral Pulses: 2+ Dorsalis Pedis (R), 2+ Left Dors-Pedis (L), 2+ Radial Pulses (R), 2+ Radial Pulses (L) Gastrointestinal: normal bowel sounds, non tender, soft Extremity: Normal Inspection, Non Tender, No Calf Tenderness, No Pedal Edema Neurologic/Psychiatric: Alert, Oriented x3, No Motor/Sensory Deficits, Normal Mood/Affect Skin: Normal Color, Warm/Dry Results Lab Laboratory Tests 03/01/19 06:46 Assessment/Plan Assessment/Plan AECOPD - resolved - schedule for PFT - 6 min walk test - smoking cessation counseling - continue breathing Tx - IS Sepsis d/t suspected Pneumonia -- sepsis has resolved - continue meropenem IV - consult pharm about D/C - sputum culture - initial reports shows no growth - Repeat CXR - Repeat CBC w/diff Tension Headache - counterstain to PC1 bilateral - patient says that headache has improved following tx ARABELLATOBIN Fox MEJIAS 03/02/19 0911: Subjective Time Seen by a Provider: 09:07 Subjective/Events-last exam Pt is still sob and wheezy. Exam Exam General Appearance: No Apparent Distress, WD/WN Respiratory: No Accessory Muscle Use, No Respiratory Distress, Expiration, Inspiration, Wheezing Cardiovascular: Regular Rate, Rhythm, No Edema, No Murmur, Normal Peripheral Pulses Gastrointestinal: normal bowel sounds, non tender, soft Extremity: Normal Inspection, Non Tender, No Calf Tenderness Neurologic/Psychiatric: Alert, No Motor/Sensory Deficits, Normal Mood/Affect Skin: Normal Color, Warm/Dry Assessment/Plan Assessment/Plan COPDAE -Solumedrol -SVNS -Oxygen -ABG Sepsis - Improving SIBS -Ku cultures pending -Continue Merrem for Supervisory-Addendum Brief Verification & Attestation Participated in pt care: history, physical Personally performed: exam, history Care discussed with: Medical Student Procedures: n/a Verification and Attestation of Medical Student E/M Service A medical student performed and documented this service in my presence. I reviewed and verified all information documented by the medical student and made modifications to such information, when appropriate. I personally performed the physical exam and medical decision making. Tobin Gan, Mar 02, 2019,09:11 EDA JARAMILLO,MED STUDENT Mar 02, 2019 06:34 TOBIN GAN DO Mar 02, 2019 09:11
[2019-03-02 06:54] LABS: BASOPHILS % (AUTO) 0 % (0-10); EOSINOPHILS % (AUTO) 0 % (0-10); HEMATOCRIT 37 % (35-52); HEMOGLOBIN 12.2 G/DL (11.5-16.0); LYMPHOCYTES # (AUTO) 0.9 X 10^3 (1.0-4.0); LYMPHOCYTES % (AUTO) 7 % (12-44); MEAN CORPUSCULAR HEMOGLOBIN 32 PG (25-34); MEAN CORPUSCULAR HGB CONC 33 G/DL (32-36); MEAN CORPUSCULAR VOLUME 97 FL (80-99); MEAN PLATELET VOLUME 11.5 FL (7.4-10.4); MONOCYTES # (AUTO) 0.3 X 10^3 (0.0-1.0); MONOCYTES % (AUTO) 3 % (0-12); NEUTROPHILS # (AUTO) 11.1 X 10^3 (1.8-7.8); NEUTROPHILS % (AUTO) 90 % (42-75); PLATELET COUNT 209 10^3/uL (130-400); RED CELL DISTRIBUTION WIDTH 13.8 % (10.0-14.5); WHITE BLOOD COUNT 12.3 10^3/uL (4.3-11.0)
[2019-03-02 07:12] LABS: BUN/CREATININE RATIO 20; CALCIUM 8.4 MG/DL (8.5-10.1); CARBON DIOXIDE 23 MMOL/L (21-32); CHLORIDE 111 MMOL/L (98-107); CREATININE SERUM 0.54 MG/DL (0.60-1.30); GFR ESTIMATED > 60; GLUCOSE 118 MG/DL (70-105); POTASSIUM 3.5 MMOL/L (3.6-5.0); SODIUM 143 MMOL/L (135-145)
[2019-03-02 07:29] LABS: BAND NEUTROPHILS 5 %; BASOPHILS % (MANUAL) 0 %; EOSINOPHILS % (MANUAL) 0 %; LYMPHOCYTES % (MANUAL) 7 %; MONOCYTES % (MANUAL) 4 %; NEUTROPHILS % (MANUAL) 84 %; RBC MORPH NORMAL
[2019-03-02 08:00] VITALS: BP 103/67
[2019-03-02] MEDS: PROPRANOLOL 20 MG (INDERAL) TABLET PO SCH ×4 (08:38→20:58)
[2019-03-02] MEDS: FLUTICASONE NASAL SPRAY (FLONASE) 16 GM BTL NS SCH (09:27)
[2019-03-02] MEDS ORDERED: KCL 20 MEQ TAB (K-DUR) PO NR (10:30)
--- NOTE | 2019-03-02 11:34 | Progress Note ---
Subjective Subjective/Events-last exam Afebrile, feeling a little better. Remains wheezy, but is still on room air. Focused Exam Lactate Level 03/01/19 06:46: Lactic Acid Level 1.15 Objective Exam Last Set of Vital Signs Vital Signs Date Time Temp Pulse Resp B/P (MAP) Pulse Ox O2 Delivery O2 Flow Rate FiO2 03/02/19 10:38 90 Room Air 03/02/19 08:00 98.8 84 20 103/67 (79) 03/01/19 19:54 2.00 Capillary Refill : Less Than 3 Seconds I&O Intake and Output 03/02/19 00:00 Intake Total 1770 ml Output Total 750 ml Balance 1020 ml Intake Oral 750 ml IV Total 1020 ml Output Urine Total 750 ml Daily Weight Change No General: Alert, No Acute Distress Lungs: Other (end expiratory wheezing) Heart: Regular Rate, No Murmurs Neuro: Normal Speech Psych/Mental Status: Mood NL Results/Procedures Lab Laboratory Tests 03/01/19 15:14: Blood Gas Puncture Site RIGHT RADIAL, Blood Gas Patient Temperature 97.6, Arterial Blood pH 7.45H, Arterial Blood Partial Pressure CO2 35, Arterial Blood Partial Pressure O2 69L, Arterial Blood HCO3 24, Arterial Blood Total CO2 24.9, Arterial Blood Oxygen Saturation 96, Arterial Blood Base Excess 0.2, Humphrey Test POSITIVE, Blood Gas Ventilator Setting NO, Blood Gas Inspired Oxygen 21% 03/02/19 05:51: White Blood Count 12.3H, Red Blood Count 3.83L, Hemoglobin 12.2, Hematocrit 37, Mean Corpuscular Volume 97, Mean Corpuscular Hemoglobin 32, Mean Corpuscular Hemoglobin Concent 33, Red Cell Distribution Width 13.8, Platelet Count 209, Mean Platelet Volume 11.5H, Neutrophils (%) (Auto) 90H, Lymphocytes (%) (Auto) 7L, Monocytes (%) (Auto) 3, Eosinophils (%) (Auto) 0, Basophils (%) (Auto) 0, Neutrophils # (Auto) 11.1H, Lymphocytes # (Auto) 0.9L, Monocytes # (Auto) 0.3, Eosinophils # (Auto) 0.0, Basophils # (Auto) 0.0, Neutrophils % (Manual) 84, Lymphocytes % (Manual) 7, Monocytes % (Manual) 4, Eosinophils % (Manual) 0, Basophils % (Manual) 0, Band Neutrophils 5, Blood Morphology Comment NORMAL, Sodium Level 143, Potassium Level 3.5L, Chloride Level 111H, Carbon Dioxide Level 23, Anion Gap 9, Blood Urea Nitrogen 11, Creatinine 0.54L, Estimat Gl omerular Filtration Rate > 60, BUN/Creatinine Ratio 20, Glucose Level 118H, Calcium Level 8.4L Microbiology 03/01/19 Influenza Types A,B Antigen (MANJU) - Final, Complete 03/01/19 Urine Culture - Final, Complete NO GROWTH Radiology CXR 03/01- patchy bibasilar infiltrates, COPD type changes Assessment/Plan Assessment/Plan (1) Bilateral pneumonia Status: Acute Assessment & Plan: Started on meropenem, allergic to PCN and levofloxacin. Flu neg. 03/02- discussed with pharmacy, will change to PO doxycycline in anticipate of d/c and monitor for any worsening in status with abx change. Qualifiers: Qualified Codes: J18.1 - Lobar pneumonia, unspecified organism (2) Sepsis Status: Acute Assessment & Plan: Leukocytosis, tachycardia and fever on admit. No evidence of severe sepsis. 03/02 improving, afebrile last 24 hours. Continue antibiotics as above. Qualifiers: Qualified Codes: A41.9 - Sepsis, unspecified organism (3) COPD exacerbation Status: Acute Assessment & Plan: Suspected, although no prior dx of COPD. Duonebs, Solumedrol. 03/02 changed to PO prednisone per protocol. Monitor closely. (4) DVT prophylaxis Status: Acute Assessment & Plan: Enoxaparin Clinical Quality Measures DVT/VTE Risk/Contraindication: Risk Factor Score Per Nursin RFS Level Per Nursing on Admit: 3=High MAXWELL RANGEL MD Mar 02, 2019 11:34
--- NOTE | 2019-03-02 11:44 | Pulmonary Progress Note ---
Standard Progress Note Progress Notes Time Seen by Provider: 06:00 Assessment & Plan COPDAE -Solumedrol -Discussed with Dr. Hopkins and pharmacy they are managing steroids and Abx I am going to sign off. Call me with any questions or concerns. I do not believe patient is ready for discharge today. I will f/u with her as an out patient. -SVNS -Oxygen Sepsis - Improving SIRS -Ku cultures pending Focused Exam Lactate Level 03/01/19 06:46: Lactic Acid Level 1.15 DL BELL DO Mar 02, 2019 11:44
[2019-03-02 12:00] VITALS: BP 114/70
[2019-03-02] MEDS: ENOXAPARIN 40 MG/0.4 ML (LOVENOX) SYR SQ SCH (13:52)
[2019-03-02 16:19] VITALS: BP 116/73
[2019-03-02] MEDS: DOXYCYCLINE 100 MG (VIBRAMYCIN) TABLET PO SCH (18:27)
[2019-03-02 20:36] VITALS: BP 102/65
[2019-03-03 00:05] VITALS: BP 108/70
[2019-03-03] MEDS: RT-ALBUTEROL/IPRATROPIUM 3 ML (DUONEB) VIAL IH SCH ×3 (01:01→10:58)
[2019-03-03 04:00] VITALS: BP 105/65
[2019-03-03 05:49] LABS: BASOPHILS % (AUTO) 0 % (0-10); EOSINOPHILS % (AUTO) 0 % (0-10); HEMATOCRIT 37 % (35-52); HEMOGLOBIN 11.8 G/DL (11.5-16.0); LYMPHOCYTES # (AUTO) 2.5 X 10^3 (1.0-4.0); LYMPHOCYTES % (AUTO) 18 % (12-44); MEAN CORPUSCULAR HEMOGLOBIN 32 PG (25-34); MEAN CORPUSCULAR HGB CONC 32 G/DL (32-36); MEAN CORPUSCULAR VOLUME 99 FL (80-99); MEAN PLATELET VOLUME 10.7 FL (7.4-10.4); MONOCYTES # (AUTO) 0.7 X 10^3 (0.0-1.0); MONOCYTES % (AUTO) 5 % (0-12); NEUTROPHILS # (AUTO) 10.2 X 10^3 (1.8-7.8); NEUTROPHILS % (AUTO) 76 % (42-75); PLATELET COUNT 209 10^3/uL (130-400); RED CELL DISTRIBUTION WIDTH 14.3 % (10.0-14.5); WHITE BLOOD COUNT 13.4 10^3/uL (4.3-11.0)
[2019-03-03] MEDS: NS IV 1000 ML 1,000 ML IV SCH (05:54)
[2019-03-03] MEDS: DOXYCYCLINE 100 MG (VIBRAMYCIN) TABLET PO SCH (05:54)
[2019-03-03 06:05] LABS: BUN/CREATININE RATIO 24; CARBON DIOXIDE 21 MMOL/L (21-32); CHLORIDE 113 MMOL/L (98-107); CREATININE SERUM 0.54 MG/DL (0.60-1.30); GFR ESTIMATED > 60; GLUCOSE 87 MG/DL (70-105); POTASSIUM 3.6 MMOL/L (3.6-5.0); SODIUM 142 MMOL/L (135-145)
[2019-03-03] MEDS ORDERED: predniSONE 20 MG TAB PO SCH (07:00)
[2019-03-03] MEDS: PROPRANOLOL 20 MG (INDERAL) TABLET PO SCH (07:49)
[2019-03-03] MEDS: FLUTICASONE NASAL SPRAY (FLONASE) 16 GM BTL NS SCH (07:49)
[2019-03-03] MEDS: IBUPROFEN 600 MG (MOTRIN) TAB PO PRN (07:49)
[2019-03-03 08:00] VITALS: BP 123/79
[2019-03-03] MEDS ORDERED: PRD10T PO (08:06)
[2019-03-03] MEDS ORDERED: DOXY100T2 PO (08:06)
--- NOTE | 2019-03-03 08:10 | Discharge Instructions ---
Discharge [facility] Discharge Medications New, Converted or Re-Newed RX: Transmitted to Pharmacy New Medications: Doxycycline Hyclate (Doxycycline Hyclate) 100 Mg Tablet 100 MG PO BID@07,17, #12 TAB 0 Refills Prednisone (Prednisone) 10 Mg Tab 0 PO UD, #10 TAB 0 Refills Take 4 tabs (40mg) daily, decrease by 1 tab (10mg) daily. Continued Medications: Albuterol Sulfate (Proair Hfa) 1 Puff Puff 2 PUFF IH Q4H PRN for SHORTNESS OF BREATH, INHALER 1 PUFF = 90 MCG Ascorbic Acid/Ascorbate Sodium (Vitamin C 250 mg Tablet Chew) 250 Mg Tab.chew 2 TAB.CHEW PO DAILY, TAB Benzonatate (Benzonatate) 100 Mg Capsule 100 MG PO TID PRN for COUGH, CAP Fluticasone Propionate (Fluticasone Propionate) 16 Gm [place].susp 2 SPRAYS NS DAILY, SPRAY Ibuprofen (Advil) 200 Mg Tablet 600 MG PO TID, TAB TAKES 3 (200MG) TABLETS Multivit with Calcium,Iron,Min (Women's Daily Formula) 1 Each Tablet 1 TAB PO DAILY, TAB Ute-3 Fatty Acids (Ute-3) 1,000 Mg Capsule 1000 MG PO HS, CAP Propranolol HCl (Propranolol HCl) 20 Mg Tablet 10 MG PO QID, TAB TAKES 1/2 (20MG) TABLET Vitamin B Complex (Super B-50 Complex) 1 Each Capsule 1 CAP PO HS, CAP Discontinued Medications: Azithromycin (Azithromycin) 250 Mg Tablet PO UD for 5 Days, TAB 5 DAY SUPPLY 02-26-19 Prednisone (Prednisone) 50 Mg Tab 50 MG PO DAILY for 5 Days, TAB 5 DAY SUPPLY FILLED 02-26-19 Patient Instructions Goal/Follow Up Appt: Follow up with Dr. Pineda on 03/07 at 11:40 am. Patient Instructions: Talk to your primary doctor about getting lung function testing to check for COPD. It is very important that you quit smoking, your primary provider can prescribe medications or nicotine replacement to help, and [facility] has a tobacco cessation program that they can refer you to as well. Return to The Hospital For: Fever, worsening shortness of breath, inability to keep down medications Activity & Diet Discharge Diet: Regular Diet Activity as Tolerated: Yes Copy Copies To 1: OPAL PINEDA MD, BETHANY N MD Mar 03, 2019 08:10
[2019-03-03 10:19] VITALS: BP 123/79
[2019-03-03 12:27] VITALS: BP 123/79
--- NOTE | 2019-03-03 20:50 | Discharge Summary ---
Discharge Summary Hospital Course Problems/Diagnosis: (1) Bilateral pneumonia Assessment & Plan: Started on meropenem, allergic to PCN and levofloxacin. Flu neg. 03/02- discussed with pharmacy, will change to PO doxycycline in anticipate of d/c and monitor for any worsening in status with abx change. 03/03 discontinued on prednisone taper and doxycycline, instructed to use albuterol q4 through the weekend, then prn (was on once daily per her report) Qualifiers: Qualified Codes: J18.1 - Lobar pneumonia, unspecified organism (2) Sepsis Assessment & Plan: Leukocytosis, tachycardia and fever on admit. No evidence of severe sepsis. 03/02 improving, afebrile last 24 hours. Continue antibiotics as above. Qualifiers: Qualified Codes: A41.9 - Sepsis, unspecified organism (3) COPD exacerbation Assessment & Plan: Suspected, although no prior dx of COPD. Duonebs, Solumedrol. 03/02 changed to PO prednisone per protocol. Monitor closely. Encouraged to follow up for PFTs when improved. Hospital Course Date of Admission: Mar 01, 2019 at 09:47 Admission Diagnosis : Family Physician/Provider: Silas Pineda MD Date of Discharge: 03/03/19 Discharge Diagnosis: See problem list Hospital Course: See problem list Labs and Pending Lab Test: Laboratory Tests 03/03/19 05:20: White Blood Count 13.4H, Red Blood Count 3.71L, Hemoglobin 11.8, Hematocrit 37, Mean Corpuscular Volume 99, Mean Corpuscular Hemoglobin 32, Mean Corpuscular Hemoglobin Concent 32, Red Cell Distribution Width 14.3, Platelet Count 209, Mean Platelet Volume 10.7H, Neutrophils (%) (Auto) 76H, Lymphocytes (%) (Auto) 18, Monocytes (%) (Auto) 5, Eosinophils (%) (Auto) 0, Basophils (%) (Auto) 0, Neutrophils # (Auto) 10.2H, Lymphocytes # (Auto) 2.5, Monocytes # (Auto) 0.7, Eosinophils # (Auto) 0.0, Basophils # (Auto) 0.0, Sodium Level 142, Potassium Level 3.6, Chloride Level 113H, Carbon Dioxide Level 21, Anion Gap 8, Blood Urea Nitrogen 13, Creatinine 0.54L, Estimat Glomerular Filtration Rate > 60, BUN/Cr eatinine Ratio 24, Glucose Level 87, Calcium Level 8.0L Microbiology 03/01/19 Blood Culture - Preliminary, Resulted No growth 03/01/19 Influenza Types A,B Antigen (MANJU) - Final, Complete 03/01/19 Urine Culture - Final, Complete NO GROWTH Home Meds Active Prednisone 10 Mg Tab 0 PO UD Take 4 tabs (40mg) daily, decrease by 1 tab (10mg) daily. Doxycycline Hyclate 100 Mg Tablet 100 Mg PO BID@ Reported Advil (Ibuprofen) 200 Mg Tablet 600 Mg PO TID TAKES 3 (200MG) TABLETS Super B-50 Complex (Vitamin B Complex) 1 Each Capsule 1 Cap PO HS [place]-3 ([place]-3 Fatty Acids) 1,000 Mg Capsule 1,000 Mg PO HS Women's Daily Formula (Multivit with Calcium,Iron,Min) 1 Each Tablet 1 Tab PO DAILY Vitamin C 250 mg Tablet Chew (Ascorbic Acid/Ascorbate Sodium) 250 Mg Tab.chew 2 Tab.chew PO DAILY Propranolol HCl 20 Mg Tablet 10 Mg PO QID TAKES 1/2 (20MG) TABLET Proair Hfa (Albuterol Sulfate) 1 Puff Puff 2 Puff IH Q4H PRN 1 PUFF = 90 MCG Fluticasone Propionate 16 Gm [place].susp 2 Sprays NS DAILY Benzonatate 100 Mg Capsule 100 Mg PO TID PRN Assessment/Pt DC Instructions Follow up with 03/07 at 11:[address] Pineda. Discharge Diet: No Restrictions Discharge Physical Examination Allergies: Coded Allergies: levofloxacin (Verified Allergy, Mild, Itching, 03/01/19) Penicillins (Verified Allergy, Unknown, 03/06/15) General Appearance: No Apparent Distress, WD/WN Respiratory: No Respiratory Distress, Wheezing Cardiovascular: Regular Rate, Rhythm, No Edema Skin: Normal Color, Warm/Dry Neurologic/Psychiatric: Alert Copy Copies To 1: SILAS PINEDA MD Discharge Summary Date of Admission Mar 01, 2019 at 09:47 Date of Discharge Mar 03, 2019 at 12:29 Discharge Date: Mar 03, 2019 Discharge Time: 1100 Clinical Quality Measures DVT/VTE Risk/Contraindication: Risk Factor Score Per Nursin RFS Level Per Nursing on Admit: 3=High MAXWELL RANGEL MD Mar 03, 2019 20:50
== END 2019-03-03 12:29 | disposition home or self-care (01) | DRG 871 ==
LOC: EDUNIT# 06:28 → ER 06:30 → 4TH 09:47
PROVIDERS: ADMIT Family Medicine; ATTEND Family Medicine
DX: A41.9 Sepsis, unspecified organism (principal); J18.1 Lobar pneumonia, unspecified organism; J44.1 Chronic obstructive pulmonary disease with (acute) exacerbation; J44.0 Chronic obstructive pulmonary disease with (acute) lower respiratory infection; I48.91 Unspecified atrial fibrillation; G44.209 Tension-type headache, unspecified, not intractable; F17.210 Nicotine dependence, cigarettes, uncomplicated; R07.0 Pain in throat; Z85.41 Personal history of malignant neoplasm of cervix uteri; Z88.0 Allergy status to penicillin; Z88.1 Allergy status to other antibiotic agents
CPT/HCPCS: 36415; 36600; 71046; 80048; 80053; 81000; 82805; 83605; 84703; 85007; 85025; 85027; 85610; 85730; 86141; 87040; 87070; 87088; 87205; 87804; 94640; 94644; 94760; 96361; 96374; 96375

== ENCOUNTER → 2019-06-16 | Outpatient (CLI) | payer OTHER ==
[~2019-06-16] MED LIST changes: +AZIT250T12 PO; +BENZ-36 PO; +CATHETER FLUSH 10 ML SYR IV PRN; +DOXY100T2 PO; +FLUT16SP22 NS; +HOLD METFORMIN - RECEIVED CONTRAST 20 ML VIAL IV SCH; +IBUP-30 PO; +IOHEXOL 350 MG/ML 100 ML (OMNIPAQUE 350) VIAL IV ONE; +MULT-141 PO; +NS 100 ML (IVPB) BAG IV ONE; +OMEG10005 PO; +PRD10T PO; +PRD50T PO; +PROP20TA5 PO; +RT-ALBUINH IH; +RT-ALBUTEROL SULF 2.5 MG/3 ML PRE-MIX VIAL INH ONE; +VITA1CAP19 PO; +[UNRECOGNIZED DRUG - CODE] PO
--- NOTE | 2019-06-16 12:03 | Diagnostic Imaging Report ---
EXAMINATION: CT Chest with intravenous contrast. TECHNIQUE: Multiple contiguous axial images were obtained through the chest after the uneventful administration of intravenous contrast. All CT scans use one or more of the following dose optimizing techniques: automated exposure control, MA and/or KvP adjustment based on a patient size and exam type, or iterative reconstruction. HISTORY: Cough. COMPARISON: None available. FINDINGS: The lungs are clear without edema or pneumonia. No pleural effusion or pneumothorax. There is an 8 mm average diameter nodule in the right upper lobe (series 4, image 53). Mucus is present in the trachea and bronchi in keeping with chronic bronchitis. Lungs are emphysematous. Heart size is normal. No pericardial effusion. Aorta is normal in caliber. There is no axillary or supraclavicular lymphadenopathy. There is no mediastinal lymphadenopathy. Limited views of the upper abdomen are unremarkable. There are no suspicious osseous lesions. IMPRESSION: 1. Indeterminate 8 mm right upper lobe nodule. According to the Fleischner Society guidelines: Recommend CT at 6-12 months and then again at 18-24 months (the second CT is optional in a low risk patient) Dictated by: Dictated on workstation # [id number]
== END ==
LOC: RT 10:23
PROVIDERS: ATTEND Nurse Practitioner Family
DX: J44.9 Chronic obstructive pulmonary disease, unspecified (principal); J30.9 Allergic rhinitis, unspecified; R91.1 Solitary pulmonary nodule; J18.9 Pneumonia, unspecified organism; F17.200 Nicotine dependence, unspecified, uncomplicated
CPT/HCPCS: 71260; 94060; 94726; 94729

== ENCOUNTER 2019-06-23 05:34 | Outpatient (CLI) | payer OTHER ==
[~2019-06-23] VITALS: Ht 165.1 cm; Wt 58.2 kg
[~2019-06-23 05:34] MED LIST changes: -CATHETER FLUSH 10 ML SYR IV PRN; -HOLD METFORMIN - RECEIVED CONTRAST 20 ML VIAL IV SCH; -IOHEXOL 350 MG/ML 100 ML (OMNIPAQUE 350) VIAL IV ONE; -NS 100 ML (IVPB) BAG IV ONE; -RT-ALBUTEROL SULF 2.5 MG/3 ML PRE-MIX VIAL INH ONE
[2019-06-23] MEDS ORDERED: MONT10TA24 PO (13:01)
== END 2019-06-23 13:07 | disposition home or self-care (01) ==
LOC: PREOP 05:34
PROVIDERS: ATTEND Internal Medicine Critical Care Medicine
DX: Z01.818 Encounter for other preprocedural examination (principal)

== ENCOUNTER 2019-07-10 16:28 | Emergency (ER) | payer OTHER ==
[~2019-07-10] VITALS: Ht 165.1 cm; Wt 58.0 kg
[~2019-07-10 16:28] MED LIST changes: +MONT10TA24 PO; -TRAM50TA2 PO; +TRM50T PO
[2019-07-10 19:01] LABS: BASOPHILS % (AUTO) 0 % (0-10); EOSINOPHILS # (AUTO) 0.3 10^3/uL (0.0-0.3); EOSINOPHILS % (AUTO) 4 % (0-10); HEMATOCRIT 42 % (35-52); HEMOGLOBIN 14.2 G/DL (11.5-16.0); LYMPHOCYTES # (AUTO) 2.6 X 10^3 (1.0-4.0); LYMPHOCYTES % (AUTO) 30 % (12-44); MEAN CORPUSCULAR HEMOGLOBIN 32 PG (25-34); MEAN CORPUSCULAR HGB CONC 34 G/DL (32-36); MEAN CORPUSCULAR VOLUME 95 FL (80-99); MEAN PLATELET VOLUME 9.8 FL (7.4-10.4); MONOCYTES # (AUTO) 0.5 X 10^3 (0.0-1.0); MONOCYTES % (AUTO) 6 % (0-12); NEUTROPHILS # (AUTO) 5.2 X 10^3 (1.8-7.8); NEUTROPHILS % (AUTO) 60 % (42-75); PLATELET COUNT 249 10^3/uL (130-400); RED CELL DISTRIBUTION WIDTH 13.1 % (10.0-14.5); WHITE BLOOD COUNT 8.6 10^3/uL (4.3-11.0)
[2019-07-10 19:13] LABS: ALANINE AMINOTRANSFERASE 8 U/L (0-55); ALBUMIN 4.3 GM/DL (3.2-4.5); ALKALINE PHOSPHATASE 53 U/L (40-136); BILIRUBIN,TOTAL 0.3 MG/DL (0.1-1.0); BUN/CREATININE RATIO 17; CALCIUM 9.3 MG/DL (8.5-10.1); CARBON DIOXIDE 23 MMOL/L (21-32); CHLORIDE 109 MMOL/L (98-107); CREATININE SERUM 0.81 MG/DL (0.60-1.30); GFR ESTIMATED > 60; GLUCOSE 96 MG/DL (70-105); POTASSIUM 4.2 MMOL/L (3.6-5.0); SODIUM 141 MMOL/L (135-145); TOTAL PROTEIN 7.2 GM/DL (6.4-8.2)
[2019-07-10 19:20] VITALS: BP 93/67
--- NOTE | 2019-07-10 19:28 | Diagnostic Imaging Report ---
INDICATION: Pneumonia. PA and lateral chest obtained at 07:10 p.m. is compared to 06/29/2019 FINDINGS: Heart and mediastinal silhouette are normal in appearance. There is no pneumothorax or pleural fluid. There is significant improvement in the infiltrate in the right lung base compared to the prior study, the infiltrate appears essentially resolved. There is no new abnormality in the left lung. IMPRESSION: Significant improvement in right lower lobe pneumonia when compared to the previous study. The chest now appears unremarkable. Dictated by: Dictated on workstation # [id number]
[2019-07-10] MEDS ORDERED: NS IV 1000 ML 1,000 ML IV ONE (19:40)
--- NOTE | 2019-07-10 20:31 | ED General ---
General Chief Complaint: Fever-Adult/Adol Stated Complaint: BACTERIAL INFECTION IN R LUNG/HEADACHE/DIZZINESS Nursing Triage Note: Pt reports being sent to ED by Dr. Gan and Dr. Pineda. Pt reports Dr. Gan diagnosed pt as having bacteria in the R lung on June 29. Pt reports being put on Levaquin and has had horrible nausea since. Pt's chart shows allergy to Levaquin. Pt reports running fever since June 29, constant headache in the back of the head and dizziness. Pt reports near syncopal episodes upon standing. Nursing Sepsis Screen: No Definite Risk Source of Information: Patient Exam Limitations: No Limitations History of Present Illness Date Seen by Provider: Jul 10, 2019 Time Seen by Provider: 18:11 Initial Comments This 44-year-old woman presents to the emergency room with concerns about headaches, lightheadedness, mid back pain, and nausea since having a bronchoscopy and starting Levaquin on June 29. She presents to the ER by private vehicle. She is a patient of Dr. Gan who performed the endoscopy. There was apparently some concern about presence of pneumonia in the right lung for which the Levaquin was prescribed. Patient has a history of adverse reaction to Levaquin causing itching. She has not experienced any itching but does complain of nausea associated with the antibiotic. She also frequently feels lightheaded, especially on standing. She denies any recent fevers. She has no chest pain. She does have COPD and continues to smoke. Allergies and Home Medications Allergies Coded Allergies: levofloxacin (Verified Allergy, Mild, Itching, 03/01/19) Penicillins (Verified Allergy, Unknown, 03/06/15) Sulfa (Sulfonamide Antibiotics) (Verified Allergy, Unknown, Hives, 07/10/19) Home Medications Albuterol Sulfate 1 Puff Puff, 2 PUFF IH Q4H PRN for SHORTNESS OF BREATH, (Reported) 1 PUFF = 90 MCG Ascorbic Acid/Ascorbate Sodium 250 Mg Tab.chew, 2 TAB.CHEW PO DAILY, (Reported) Benzonatate 100 Mg Capsule, 100 MG PO TID PRN for COUGH, (Reported) Fluticasone Propionate 16 Gm [place].susp, 2 SPRAYS NS DAILY, (Reported) Ibuprofen 200 Mg Tablet, 600 MG PO TID, (Reported) TAKES 3 (200MG) TABLETS Montelukast Sodium 10 Mg Tablet, 10 MG PO HS, (Reported) Multivit with Calcium,Iron,Min 1 Each Tablet, 1 TAB PO DAILY, (Reported) [place]-3 Fatty Acids 1,000 Mg Capsule, 1,000 MG PO HS, (Reported) Propranolol HCl 20 Mg Tablet, 10 MG PO QID, (Reported) TAKES 1/2 (20MG) TABLET Vitamin B Complex 1 Each Capsule, 1 CAP PO HS, (Reported) Patient Home Medication List Home Medication List Reviewed: Yes Review of Systems Review of Systems Constitutional: no symptoms reported EENTM: no symptoms reported Respiratory: see HPI Cardiovascular: see HPI Gastrointestinal: no symptoms reported Genitourinary: no symptoms reported : No Musculoskeletal: no symptoms reported Skin: no symptoms reported Psychiatric/Neurological: No Symptoms Reported Hematologic/Lymphatic: No Symptoms Reported Past Vqchwct-Wtkywb-Rnnudr Hx Past Med/Social Hx: Reviewed Nursing Past Med/Soc Hx Patient Social History Alcohol Use: Denies Use Recreational Drug Use: No Smoking Status: Current Everyday Smoker Type Used: Cigarettes 2nd Hand Smoke Exposure: Yes Recent Foreign Travel: No Contact w/Someone Who Travel: No Recent Infectious Disease Expo: No Recent Hopitalizations: No Immunizations Up To Date Tetanus Booster (TDap): Unknown PED Vaccines UTD: Yes Date of Pneumonia Vaccine: Apr 28, 2019 Date of Influenza Vaccine: Mar 28, 2019 Seasonal Allergies Seasonal Allergies: Yes Past Medical History Surgeries: Yes (D&C, FOOT (SCREWS), PART OF CERVIX REMOVED) Appendectomy, Section, Hysterectomy Respiratory: Yes (pt reports bacteria in lung) COPD Cardiac: Yes ("irregular heart beat" - patient ) Atrial Fibrillation, Irregular Heartbeat Neurological: No Last Menstrual Period: Jul 07, 2019 Reproductive Disorders: Yes (INCOMP. CERVIX) Female Reproductive Disorders: Denies SPECIAL TESTER History: Hysterectomy Sexually Transmitted Disease: No HIV/AIDS: No Genitourinary: No Gastrointestinal: No Musculoskeletal: No Endocrine: No HEENT: No Loss of Vision: Bilateral Hearing Impairment: Denies Cancer: Yes Cervical Psychosocial: No Integumentary: No Blood Disorders: No Adverse Reaction/Blood Tranf: No Family Medical History Cancer of mouth Congenital heart disease 19 FATHER FH: asthma (mother's side) 19 MOTHER FH: brain cancer FH: heart disease (Mother and father's side) FH: ovarian cancer (Mother's side) Physical Exam Vital Signs Vital Signs - First Documented 1/13/20 17:30 Temp 36.8 Pulse 84 Resp 15 B/P (MAP) 100/69 (79) Pulse Ox 99 O2 Delivery Room Air Capillary Refill : Less Than 3 Seconds Height, Weight, BMI Height: 5'5.00" Weight: 133lbs. 6.0oz. 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 as Tested Skin: Normal Color, Warm/Dry Progress/Results/Core Measures Suspected Sepsis Recent Fever Within 48 Hours: Yes Infection Criteria Present: Suspected New Infection New/Unexplained Altered Menta: No Sepsis Screen: No Definite Risk SIRS Temperature: Pulse: 88 Respiratory Rate: 18 Laboratory Tests 07/10/19 18:47: White Blood Count 8.6 Blood Pressure 93 /67 Mean: 76 Laboratory Tests 07/10/19 18:47: Creatinine 0.81, Platelet Count 249, Total Bilirubin 0.3 Results/Orders Lab Results Laboratory Tests Test 07/10/19 18:47 Range/Units White Blood Count 8.6 4.3-11.0 10^3/uL Red Blood Count 4.43 4.35-5.85 10^6/uL Hemoglobin 14.2 11.5-16.0 G/DL Hematocrit 42 35-52 % Mean Corpuscular Volume 95 80-99 FL Mean Corpuscular Hemoglobin 32 25-34 PG Mean Corpuscular Hemoglobin Concent 34 32-36 G/DL Red Cell Distribution Width 13.1 10.0-14.5 % Platelet Count 249 130-400 10^3/uL Mean Platelet Volume 9.8 7.4-10.4 FL Neutrophils (%) (Auto) 60 42-75 % Lymphocytes (%) (Auto) 30 12-44 % Monocytes (%) (Auto) 6 0-12 % Eosinophils (%) (Auto) 4 0-10 % Basophils (%) (Auto) 0 0-10 % Neutrophils # (Auto) 5.2 1.8-7.8 X 10^3 Lymphocytes # (Auto) 2.6 1.0-4.0 X 10^3 Monocytes # (Auto) 0.5 0.0-1.0 X 10^3 Eosinophils # (Auto) 0.3 0.0-0.3 10^3/uL Basophils # (Auto) 0.0 0.0-0.1 10^3/uL Sodium Level 141 135-145 MMOL/L Potassium Level 4.2 3.6-5.0 MMOL/L Chloride Level 109 H 98-107 MMOL/L Carbon Dioxide Level 23 21-32 MMOL/L Anion Gap 9 5-14 MMOL/L Blood Urea Nitrogen 14 7-18 MG/DL Creatinine 0.81 0.60-1.30 MG/DL Estimat Glomerular Filtration Rate > 60 BUN/Creatinine Ratio 17 Glucose Level 96 70-105 MG/DL Calcium Level 9.3 8.5-10.1 MG/DL Corrected Calcium 9.1 8.5-10.1 MG/DL Total Bilirubin 0.3 0.1-1.0 MG/DL Aspartate Amino Transf (AST/SGOT) 10 5-34 U/L Alanine Aminotransferase (ALT/SGPT) 8 0-55 U/L Alkaline Phosphatase 53 40-136 U/L C-Reactive Protein High Sensitivity 0.21 0.00-0.50 MG/DL Total Protein 7.2 6.4-8.2 GM/DL Albumin 4.3 3.2-4.5 GM/DL Micro Results Microbiology 07/10/19 Influenza Types A,B Antigen (MANJU) - Final, Complete My Orders Orders - FRANSISCO RODRÍGUEZ MD Ed Iv/Invasive Line Start (07/10/19 18:11) Cbc With Automated Diff (07/10/19 18:11) Comprehensive Metabolic Panel (07/10/19 18:11) Hs C Reactive Protein (07/10/19 18:11) Influenza A And B Antigens (07/10/19 18:11) Chest Pa/Lat (2 View) (07/10/19 18:11) Ns Iv 1000 Ml (Sodium Chloride 0.9%) (07/10/19 19:40) Ekg Tracing (07/10/19 19:40) Medications Given in ED Current Medications Medications Dose Ordered Sig/[place] Route Start Time Stop Time Status Last Admin Dose Admin Sodium Chloride 1,000 ml @ 0 mls/hr Q0M ONCE IV 07/10/19 19:40 07/10/19 19:41 DC 07/10/19 20:05 1,000 MLS/HR Vital Signs/I&O 07/10/19 07/10/19 07/10/19 17:30 19:20 20:35 Temp 36.8 36.8 36.8 Pulse 84 88 68 Resp 15 18 16 B/P (MAP) 100/69 (79) 93/67 (76) 104/69 (76) Pulse Ox 99 99 100 O2 Delivery Room Air 07/11/19 00:00 Intake Total 1000 ml Balance 1000 ml Capillary Refill : Less Than 3 Seconds Blood Pressure Mean: 76 Progress Note : Progress Note Workup was unremarkable. Patient was provided reassurance. Liter of IV fluid was infused which helped her dizziness. She was advised to follow closely with Dr. Gan and her primary care provider. Pathology and micro-reports from the bronchoscopy were reviewed. There were no major abnormalities requiring emergent treatment on those studies. ECG Initial ECG Impression Date: Jul 10, 2019 Initial ECG Impression Time: 19:59 Initial ECG Rate: 69 Initial ECG Rhythm: Normal Sinus Initial ECG Intervals: Normal Initial ECG Impression: Normal Comment Normal sinus rhythm with no ST elevation or depression. No abnormal intervals or axis deviation. Diagnostic Imaging Diagonstic Imaging: Xray Plain Films/CT/US/NM/MRI: chest Comments Chest x-ray viewed by me and report reviewed. See report below: NAME: ERIN KLEIN [facility] REC#: [id number] PT STATUS: REG ER : 1975 PHYSICIAN: FRANSISCO RODRÍGUEZ MD ADMIT DATE: 07/10/19/ER Signed Date of Exam:07/10/19 CHEST PA/LAT (2 VIEW) INDICATION: Pneumonia. PA and lateral chest obtained at 07:10 p.m. is compared to 06/29/2019 FINDINGS: Heart and mediastinal silhouette are normal in appearance. There is no pneumothorax or pleural fluid. There is significant improvement in the infiltrate in the right lung base compared to the prior study, the infiltrate appears essentially resolved. There is no new abnormality in the left lung. IMPRESSION: Significant improvement in right lower lobe pneumonia when compared to the previous study. The chest now appears unremarkable. Dictated by: Dictated on workstation # [id number] Dict: 07/10/191923 Trans: 07/10/191937 [id number] Interpreted by: AMILCAR GREENWOOD MD Electronically signed by: AMILCAR GREENWOOD MD 07/10/191937 Departure Impression Primary Impression: Lightheadedness Additional Impressions: Back pain Qualified Codes: M54.6 - Pain in thoracic spine COPD (chronic obstructive pulmonary disease) Qualified Codes: J44.9 - Chronic obstructive pulmonary disease, unspecified Disposition: HOME, SELF-CARE Condition: Improved Departure-Patient Inst. Decision time for Depature: 20:28 Referrals: OPAL PINEDA MD (PCP/Family) Primary Care Physician Patient Instructions: Dizziness, Nonvertigo, (DC) Add. Discharge Instructions: Follow-up with your primary care provider and Dr. Gan as soon as possible. Try to finish up the last 2 doses of your Levaquin. There is no evidence of active bacterial infection in your workup at this time but she should try to complete the antibiotics as prescribed. Drink plenty of clear liquids to stay well-hydrated. You may take Tylenol up to 650 mg every 6 hours as needed for pain. Add ibuprofen up to 400 mg every 6 hours as needed for additional pain relief. Return to care if you have worsening symptoms despite these measures. All discharge instructions reviewed with patient and/or family. Voiced understanding. Copy Copies To 1: DL GAN DO Copies To 2: OPAL PINEDA MD, JOSHUA T MD Jul 10, 2019 20:31
[2019-07-10 20:35] VITALS: BP 104/69
== END 2019-07-10 20:42 | disposition home or self-care (01) ==
LOC: EDUNIT# 16:28 → ER 16:30
DX: R42 Dizziness and giddiness (principal); M54.9 Dorsalgia, unspecified; J44.9 Chronic obstructive pulmonary disease, unspecified; I48.91 Unspecified atrial fibrillation; F17.210 Nicotine dependence, cigarettes, uncomplicated; Z85.41 Personal history of malignant neoplasm of cervix uteri; Z90.49 Acquired absence of other specified parts of digestive tract; Z90.710 Acquired absence of both cervix and uterus; Z88.1 Allergy status to other antibiotic agents; Z88.0 Allergy status to penicillin; Z88.2 Allergy status to sulfonamides; Z79.51 Long term (current) use of inhaled steroids; Z82.49 Family history of ischemic heart disease and other diseases of the circulatory system; Z80.8 Family history of malignant neoplasm of other organs or systems
CPT/HCPCS: 36415; 71046; 80053; 85025; 86141; 87804; 93005

== ENCOUNTER 2019-07-19 10:32 | Outpatient (RCR) | payer OTHER ==
[~2019-07-19] VITALS: Ht 165.1 cm; Wt 58.1 kg
[~2019-07-19 10:32] MED LIST changes: -MONT10TA24 PO; +MONT10TA26 PO
[2019-07-19 10:50] VITALS: BP 90/40
--- NOTE | 2019-07-20 09:20 | NUR ---
PT ATTENDED PULMONARY REHAB EVALUATION YESTERDAY; SHE STATED THAT SHE HAD BEEN TX RECENTLY FOR A BACTERIAL INFECTION IN LUNGS, BUT COULD NOT REMEMBER DX OR DRUG GIVEN. LOOKED UP FILE TO SEE IF DOCUMENTED IN RECORDS (FOR EVALUATION PAPERWORK).
== END 2019-10-17 | disposition home or self-care (01) ==
LOC: PULM 10:32
PROVIDERS: ATTEND Nurse Practitioner Family
DX: J44.9 Chronic obstructive pulmonary disease, unspecified (principal)
CPT/HCPCS: 99211

== ENCOUNTER 2019-07-27 08:52 | Emergency (ER) | payer SELFPAY ==
[~2019-07-27] VITALS: Ht 165 cm; Wt 58.0 kg
[~2019-07-27 08:52] MED LIST changes: +MONT10TA24 PO; -MONT10TA26 PO
[2019-07-27] MEDS ORDERED: ONDANSETRON 4 MG/2 ML (SDV) Z0FRAN IVP ONE (09:15)
[2019-07-27] MEDS ORDERED: ASPIRIN 81 MG CHEW (CHILDREN'S ASA) PO ONE (09:15)
--- NOTE | 2019-07-27 09:18 | ED Chest Pain ---
General Chief Complaint: General Problems/Pain Stated Complaint: TIRED Source: patient Exam Limitations: no limitations History of Present Illness Date Seen by Provider: Jul 27, 2019 Time Seen by Provider: 09:01 Initial Comments Patient arrives to the ER by private conveyance with her spouse and chief complaint that she has felt tired, nauseated and weak especially when standing for the past 2 days. 2 days ago she had about half an hour to an hour of a weird feeling in her chest pressure and pain on the left side nonradiating. She's also noticed for the past few months since she had to be hospitalized for a bad pneumonia in February 2019 she is having some increased swelling in her feet. She has no history of heart disease but she is working on a referral to see a consultant rn through her primary care office, Dr. Bear. She has followed with Dr. Gan and had a bronchoscopy. They said there were some bacterial pneumonia and she completed the antibiotics and it seemed to resolve. She has an appointment with him in a week and an appointment with her primary care in 2 weeks but she was concerned about this chest pain and how weak and nauseated she's felt. She says it is worse with exertion. 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 She does smoke about a pack of cigarettes per day and is in a smoking cessation program she is down from 1/2-2 packs per day. She denies drugs or alcohol usage. Allergies and Home Medications Allergies Coded Allergies: levofloxacin (Verified Allergy, Mild, Itching, 03/01/19) Penicillins (Verified Allergy, Unknown, 03/06/15) Sulfa (Sulfonamide Antibiotics) (Verified Allergy, Unknown, Hives, 07/10/19) Home Medications Albuterol Sulfate 1 Puff Puff, 2 PUFF IH Q4H PRN for SHORTNESS OF BREATH, (Reported) 1 PUFF = 90 MCG Ascorbic Acid/Ascorbate Sodium 250 Mg Tab.chew, 2 TAB.CHEW PO DAILY, (Reported) Benzonatate 100 Mg Capsule, 100 MG PO TID PRN for COUGH, (Reported) Fluticasone Propionate 16 Gm [place].susp, 2 SPRAYS NS DAILY, (Reported) Ibuprofen 200 Mg Tablet, 600 MG PO TID, (Reported) TAKES 3 (200MG) TABLETS Montelukast Sodium 10 Mg Tablet, 10 MG PO HS, (Reported) Multivit with Calcium,Iron,Min 1 Each Tablet, 1 TAB PO DAILY, (Reported) [place]-3 Fatty Acids 1,000 Mg Capsule, 1,000 MG PO HS, (Reported) Propranolol HCl 20 Mg Tablet, 10 MG PO QID, (Reported) TAKES 1/2 (20MG) TABLET Vitamin B Complex 1 Each Capsule, 1 CAP PO HS, (Reported) Patient Home Medication List Home Medication List Reviewed: Yes Review of Systems Review of Systems Constitutional: No chills, No diaphoresis; malaise, weakness EENTM: No Blurred Vision, No Double Vision Respiratory: Denies Cough, Denies Shortness of Air Cardiovascular: See HPI, Chest Pain, Edema Gastrointestinal: Denies Abdomen Distended, Denies Abdominal Pain Genitourinary: Denies Burning, Denies Discharge Musculoskeletal: No back pain, No joint pain Skin: No pruritus, No rash Psychiatric/Neurological: Denies Headache, Denies Numbness All Other Systems Reviewed Negative Unless Noted: Yes Past Vubrewi-Qjbndx-Jfvgsn Hx Patient Social History Alcohol Use: Denies Use Recreational Drug Use: No Smoking Status: Current Everyday Smoker Type Used: Cigarettes 2nd Hand Smoke Exposure: Yes Recent Foreign Travel: No Contact w/Someone Who Travel: No Recent Hopitalizations: No Immunizations Up To Date Tetanus Booster (TDap): Unknown PED Vaccines UTD: Yes Date of Pneumonia Vaccine: Apr 28, 2019 Date of Influenza Vaccine: Mar 28, 2019 Seasonal Allergies Seasonal Allergies: Yes Past Medical History Surgeries: Yes (D&C, FOOT (SCREWS), PART OF CERVIX REMOVED) Appendectomy, Section, Hysterectomy Respiratory: Yes (pt reports bacteria in lung) COPD Cardiac: Yes ("irregular heart beat" - patient ) Atrial Fibrillation, Irregular Heartbeat Neurological: No Reproductive Disorders: Yes (INCOMP. 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 Sexually Transmitted Disease: No HIV/AIDS: No Genitourinary: No Gastrointestinal: No Musculoskeletal: No Endocrine: No HEENT: No Loss of Vision: Bilateral Hearing Impairment: Denies Cancer: Yes Cervical Psychosocial: No Integumentary: No Blood Disorders: No Adverse Reaction/Blood Tranf: No Family Medical History Cancer of mouth Congenital heart disease 19 FATHER FH: asthma (mother's side) 19 MOTHER FH: brain cancer FH: heart disease (Mother and father's side) FH: ovarian cancer (Mother's side) Physical Exam Vital Signs Vital Signs - First Documented 07/27/19 09:05 Temp 37.0 Pulse 92 Resp 16 B/P (MAP) 112/76 (88) Pulse Ox 100 O2 Delivery Room Air Capillary Refill : Height, Weight, BMI Height: 5'5.00" Weight: 128lbs. 6.0oz. 58.851332qb; 21.3 BMI Method:Estimated General Appearance: Anxious, Mild Distress, Thin HEENT: PERRL/EOMI, TMs Normal, Normal ENT Inspection, Pharynx Normal, Moist Mucous Membranes Neck: Full Range of Motion, Normal Inspection, Non Tender, Supple Respiratory: Chest Non Tender, Lungs Clear, Normal Breath Sounds, No Accessory Muscle Use, No Respiratory Distress Cardiovascular: Regular Rate, Rhythm, No Edema, Normal Peripheral Pulses Gastrointestinal: Normal Bowel Sounds, Non Tender, Soft Extremity: Normal Capillary Refill, Normal Inspection, No Pedal Edema Neurologic/Psychiatric: Alert, Oriented x3, No Motor/Sensory Deficits Skin: Normal Color, Warm/Dry Progress/Results/Core Measures Results/Orders Lab Results Laboratory Tests Test 07/27/19 09:15 07/27/19 09:33 07/27/19 12:29 Range/Units Urine Color YELLOW Urine Clarity CLEAR Urine pH 7.0 5-9 Urine Specific [place] 1.010 L 1.016-1.022 Urine Protein NEGATIVE NEGATIVE Urine Glucose (UA) NEGATIVE NEGATIVE Urine Ketones NEGATIVE NEGATIVE Urine Nitrite NEGATIVE NEGATIVE Urine Bilirubin NEGATIVE NEGATIVE Urine Urobilinogen 0.2 < = 1.0 MG/DL Urine Leukocyte Esterase NEGATIVE NEGATIVE Urine RBC (Auto) NEGATIVE NEGATIVE Urine RBC NONE /HPF Urine WBC NONE /HPF Urine Squamous Epithelial Cells RARE /HPF Urine Crystals NONE /LPF Urine Bacteria NEGATIVE /HPF Urine Casts NONE /LPF Urine Mucus NEGATIVE /LPF Urine Culture Indicated NO Urine Opiates Screen NEGATIVE NEGATIVE Urine Oxycodone Screen NEGATIVE NEGATIVE Urine Methadone Screen NEGATIVE NEGATIVE Urine Propoxyphene Screen NEGATIVE NEGATIVE Urine Barbiturates Screen NEGATIVE NEGATIVE Ur Tricyclic Antidepressants Screen NEGATIVE NEGATIVE Urine Phencyclidine Screen NEGATIVE NEGATIVE Urine Amphetamines Screen NEGATIVE NEGATIVE Urine Methamphetamines Screen NEGATIVE NEGATIVE Urine Benzodiazepines Screen NEGATIVE NEGATIVE Urine Cocaine Screen NEGATIVE NEGATIVE Urine Cannabinoids Screen NEGATIVE NEGATIVE White Blood Count 10.8 4.3-11.0 10^3/uL Red Blood Count 4.52 4.35-5.85 10^6/uL Hemoglobin 14.5 11.5-16.0 G/DL Hematocrit 43 35-52 % Mean Corpuscular Volume 94 80-99 FL Mean Corpuscular Hemoglobin 32 25-34 PG Mean Corpuscular Hemoglobin Concent 34 32-36 G/DL Red Cell Distribution Width 13.3 10.0-14.5 % Platelet Count 255 130-400 10^3/uL Mean Platelet Volume 9.5 7.4-10.4 FL Neutrophils (%) (Auto) 77 H 42-75 % Lymphocytes (%) (Auto) 17 12-44 % Monocytes (%) (Auto) 4 0-12 % Eosinophils (%) (Auto) 2 0-10 % Basophils (%) (Auto) 0 0-10 % Neutrophils # (Auto) 8.2 H 1.8-7.8 X 10^3 Lymphocytes # (Auto) 1.9 1.0-4.0 X 10^3 Monocytes # (Auto) 0.4 0.0-1.0 X 10^3 Eosinophils # (Auto) 0.2 0.0-0.3 10^3/uL Basophils # (Auto) 0.0 0.0-0.1 10^3/uL Prothrombin Time 13.8 12.2-14.7 SEC INR Comment 1.0 0.8-1.4 Activated Partial Thromboplast Time 37 H 24-35 SEC D-Dimer 0.38 0.00-0.49 UG/ML Sodium Level 140 135-145 MMOL/L Potassium Level 4.3 3.6-5.0 MMOL/L Chloride Level 107 98-107 MMOL/L Carbon Dioxide Level 20 L 21-32 MMOL/L Anion Gap 13 5-14 MMOL/L Blood Urea Nitrogen 14 7-18 MG/DL Creatinine 0.69 0.60-1.30 MG/DL Estimat Glomerular Filtration Rate > 60 BUN/Creatinine Ratio 20 Glucose Level 100 70-105 MG/DL Calcium Level 10.1 8.5-10.1 MG/DL Corrected Calcium 9.8 8.5-10.1 MG/DL Magnesium Level 1.8 1.6-2.4 MG/DL Total Bilirubin 0.5 0.1-1.0 MG/DL Aspartate Amino Transf (AST/SGOT) 12 5-34 U/L Alanine Aminotransferase (ALT/SGPT) 13 0-55 U/L Alkaline Phosphatase 54 40-136 U/L Myoglobin 14.7 10.0-92.0 NG/ML Troponin I < 0.028 < 0.028 <0.028 NG/ML B-Type Natriuretic Peptide < 10.0 <100.0 PG/ML Total Protein 7.4 6.4-8.2 GM/DL Albumin 4.4 3.2-4.5 GM/DL My Orders Orders - ADELAIDAVANDA J Cbc With Automated Diff (07/27/19 09:14) Magnesium (07/27/19 09:14) Chest 1 View, Ap/Pa Only (07/27/19 09:14) Ekg Tracing (07/27/19 09:14) Comprehensive Metabolic Panel (07/27/19 09:14) Myoglobin Serum (07/27/19 09:14) Protime With Inr (07/27/19 09:14) Partial Thromboplastin Time (07/27/19 09:14) O2 (07/27/19 09:14) Monitor-Rhythm Ecg Trace Only (07/27/19 09:14) Lipid Panel (07/28/19 06:00) Ed Iv/Invasive Line Start (07/27/19 09:14) BNP (07/27/19 09:14) Aspirin Chewable Tablet (Baby Aspirin Ch (07/27/19 09:15) Ondansetron Injection (Zofran Injectio (07/27/19 09:15) Ua Culture If Indicated (07/27/19 09:19) Drug Screen Stat (Urine) (07/27/19 09:19) Urine Bedside (07/27/19 09:19) Troponin I (07/27/19 09:33) Fibrin Degradation Products (07/27/19 09:33) Orthostatic Vital Signs (Adult (07/27/19 11:10) Ed Iv/Invasive Line Start (07/27/19 11:26) Ns Iv 1000 Ml (Sodium Chloride 0.9%) (07/27/19 11:26) Troponin I (07/27/19 12:20) Medications Given in ED Current Medications Medications Dose Ordered Sig/Juan Pablo Route Start Time Stop Time Status Last Admin Dose Admin Aspirin 324 mg ONCE ONCE PO 07/27/19 09:15 07/27/19 09:16 DC 07/27/19 10:19 324 MG Ondansetron HCl 4 mg ONCE ONCE IVP 07/27/19 09:15 07/27/19 09:16 DC 07/27/19 10:19 4 MG Vital Signs/I&O 07/27/19 09:05 Temp 37.0 Pulse 92 Resp 16 B/P (MAP) 112/76 (88) Pulse Ox 100 O2 Delivery Room Air Progress Progress Note #1: Time: 09:32 Progress Note Given her history of chest pain 2 days ago and malaise and nausea since then we'll give her a chest pain workup as well as urinalysis urine drug screen, chest x-ray, aspirin. She's not having any pain in her chest presently. Initial EKG is unremarkable. Another possibility would be a viral syndrome, COPD. Lung sounds are clear and she is oxygenating well. Progress Note #2: Time: 11:12 Progress Note Patient's feeling about the same. Her labs and urinalysis are unrevealing. I suspect the propranolol may be a source of her symptoms since she's having some soft blood pressure support and a have a set of orthostatic vital signs obtained. If they are low we'll give her some IV fluids and reevaluate. Progress Note #3: Time: 12:48 Progress Note A liter of fluids did not change her blood pressure. I suspect since she has some slight that this may be a normal blood pressure for her or it may indicate that her beta blockers are needing trimmed back. If the patient's 3 hour delta troponin is still negative then we would let her follow up outpatient with her primary care doctor and cardiology as she desires. We've asked her to reduce her propranolol. Right now she takes half of a tablet 4 times a day so we plan to have her just take it twice a day. She has specifically requested follow-up with Dr. Dyson, cardiology. Initial ECG Impression Date: Jul 27, 2019 Initial ECG Impression Time: 09:17 Initial ECG Rate: 92 Initial ECG Rhythm: Normal Sinus Initial ECG Intervals: Normal Initial ECG Impression: Normal Comment Normal sinus rhythm without any ST elevation or depression. Diagnostic Imaging Diagonstic Imaging: Xray Plain Films/CT/US/NM/MRI: chest (1v) Comments [facility]. [place], [place] NAME: ERIN KLEIN [facility] REC#: [id number] PT STATUS: REG ER : 1975 PHYSICIAN: VANDA SON MD ADMIT DATE: 07/27/19/ER Draft Date of Exam:07/27/19 CHEST 1 VIEW, AP/PA ONLY INDICATION: Irregular heartbeat. Exam compared 07/10/2019. FINDINGS: The lungs are clear. The heart size and vascularity normal. There is no effusion or pneumothorax. IMPRESSION: No acute appearing abnormality. Dictated on workstation # [id number] Dict: 07/27/19 1007 Trans: 07/27/19 1011 [id number] Interpreted by: JULIET JAMIL Electronically signed by: Reviewed: Reviewed by Me Departure Impression Primary Impression: Fatigue Qualified Codes: R53.83 - Other fatigue Additional Impressions: Beta-jorge a intolerance Chest pain in adult Disposition: 01 HOME, SELF-CARE Condition: Stable Departure-Patient Inst. Decision time for Depature: 13:06 Referrals: OPAL PINEDA MD (PCP/Family) Primary Care Physician Fox DYSON MD Patient Instructions: Chest Pain (DC), Propranolol Add. Discharge Instructions: Continue taking half a tablet of your propranolol twice a day instead of 4 times a day. Plan to follow up in the next 1-2 weeks with primary care. Follow-up with Dr. Dyson, cardiology by calling for an appointment. If you have fainting spells, chest pain or other worrisome symptoms then please return to the ER. All discharge instructions reviewed with patient and/or family. Voiced understanding. Work/School Note: Work Release Form Date Seen in the Emergency Department: Jul 27, 2019 Return to Work: Jul 28, 2019 Restrictions: No Restrictions Copy Copies To 1: Fox DYSON MD, TITUS J Jul 27, 2019 09:18
[2019-07-27 09:31] LABS: BILIRUBIN,URINE NEGATIVE (NEGATIVE); CLARITY,URINE CLEAR; COLOR,URINE YELLOW; GLUCOSE, URINE (UA) NEGATIVE (NEGATIVE); KETONES,URINE NEGATIVE (NEGATIVE); LEUKOCYTE ESTERASE ,URINE NEGATIVE (NEGATIVE); NITRITE,URINE NEGATIVE (NEGATIVE); PROTEIN,URINE NEGATIVE (NEGATIVE)
[2019-07-27 09:37] LABS: BACTERIA,URINE NEGATIVE /HPF; SQUAMOUS EPITHELIAL CELL,UR RARE /HPF
[2019-07-27 09:42] LABS: AMPHETAMINE SCREEN, URINE NEGATIVE (NEGATIVE); BARBITURATE SCREEN URINE NEGATIVE (NEGATIVE); BENZODIAZEPINES SCREEN URINE NEGATIVE (NEGATIVE); CANNABINOID SCREEN, URINE NEGATIVE (NEGATIVE); COCAINE SCREEN URINE NEGATIVE (NEGATIVE); METHADONE STAT NEGATIVE (NEGATIVE); METHAMPHETAMINE SCREEN URINE S NEGATIVE (NEGATIVE); OPIATE SCREEN URINE NEGATIVE (NEGATIVE); OXYCODONE STAT NEGATIVE (NEGATIVE); PROPOXYPHENE STAT NEGATIVE (NEGATIVE); TRICYCLIC ANTIDEPRESSANTS SCRE NEGATIVE (NEGATIVE)
[2019-07-27 09:44] LABS: BASOPHILS % (AUTO) 0 % (0-10); EOSINOPHILS # (AUTO) 0.2 10^3/uL (0.0-0.3); EOSINOPHILS % (AUTO) 2 % (0-10); HEMATOCRIT 43 % (35-52); HEMOGLOBIN 14.5 G/DL (11.5-16.0); LYMPHOCYTES # (AUTO) 1.9 X 10^3 (1.0-4.0); LYMPHOCYTES % (AUTO) 17 % (12-44); MEAN CORPUSCULAR HEMOGLOBIN 32 PG (25-34); MEAN CORPUSCULAR HGB CONC 34 G/DL (32-36); MEAN CORPUSCULAR VOLUME 94 FL (80-99); MEAN PLATELET VOLUME 9.5 FL (7.4-10.4); MONOCYTES # (AUTO) 0.4 X 10^3 (0.0-1.0); MONOCYTES % (AUTO) 4 % (0-12); NEUTROPHILS # (AUTO) 8.2 X 10^3 (1.8-7.8); NEUTROPHILS % (AUTO) 77 % (42-75); PLATELET COUNT 255 10^3/uL (130-400); RED CELL DISTRIBUTION WIDTH 13.3 % (10.0-14.5); WHITE BLOOD COUNT 10.8 10^3/uL (4.3-11.0)
[2019-07-27 10:00] LABS: FIBRIN DEGRADATION PRODUCTS 0.38 UG/ML (0.00-0.49); PROTHROMBIN TIME PATIENT 13.8 SEC (12.2-14.7)
[2019-07-27 10:01] LABS: ALANINE AMINOTRANSFERASE 13 U/L (0-55); ALBUMIN 4.4 GM/DL (3.2-4.5); ALKALINE PHOSPHATASE 54 U/L (40-136); BILIRUBIN,TOTAL 0.5 MG/DL (0.1-1.0); BUN/CREATININE RATIO 20; CALCIUM 10.1 MG/DL (8.5-10.1); CARBON DIOXIDE 20 MMOL/L (21-32); CHLORIDE 107 MMOL/L (98-107); CREATININE SERUM 0.69 MG/DL (0.60-1.30); GFR ESTIMATED > 60; GLUCOSE 100 MG/DL (70-105); MAGNESIUM 1.8 MG/DL (1.6-2.4); POTASSIUM 4.3 MMOL/L (3.6-5.0); SODIUM 140 MMOL/L (135-145); TOTAL PROTEIN 7.4 GM/DL (6.4-8.2)
--- NOTE | 2019-07-27 10:12 | Diagnostic Imaging Report ---
INDICATION: Irregular heartbeat. Exam compared 07/10/2019. FINDINGS: The lungs are clear. The heart size and vascularity normal. There is no effusion or pneumothorax. IMPRESSION: No acute appearing abnormality. Dictated by: Dictated on workstation # [id number]
--- NOTE | 2019-07-27 11:12 | NUR ---
NOTIFIED EVERYTHING WAS BACK ET WE WERE WAITING ON DR. RAINES NEEDS AT THIS TIME.
[2019-07-27] MEDS ORDERED: NS IV 1000 ML 1,000 ML IV SCH (11:26)
[2019-07-27 13:13] VITALS: BP 101/73
== END 2019-07-27 13:13 | disposition home or self-care (01) ==
LOC: EDUNIT# 08:52 → ER 08:53
DX: R53.83 Other fatigue (principal); T44.7X5A Adverse effect of beta-adrenoreceptor antagonists, initial encounter; R07.9 Chest pain, unspecified; J44.9 Chronic obstructive pulmonary disease, unspecified; I48.91 Unspecified atrial fibrillation; F17.210 Nicotine dependence, cigarettes, uncomplicated; Z85.41 Personal history of malignant neoplasm of cervix uteri; Z88.1 Allergy status to other antibiotic agents; Z88.0 Allergy status to penicillin; Z88.2 Allergy status to sulfonamides; Z79.51 Long term (current) use of inhaled steroids; Z80.8 Family history of malignant neoplasm of other organs or systems; Z80.41 Family history of malignant neoplasm of ovary
CPT/HCPCS: 36415; 71045; 80053; 80306; 81000; 83735; 83874; 83880; 84484; 85025; 85379; 85610; 85730; 93005; 93041; 96361; 96374

== ENCOUNTER → 2019-08-24 | Outpatient (CLI) | payer OTHER ==
[~2019-08-24] VITALS: Ht 165 cm; Wt 58.0 kg
[~2019-08-24] MED LIST changes: -MONT10TA24 PO; +MONT10TA26 PO; +REGADENOSON 0.4 MG/5 ML SYR (LEXISCAN) IV ONE
[2019-08-24] MEDS: CATHETER FLUSH 10 ML SYR IV PRN ×2 (07:58→08:59)
[2019-08-24 08:57] VITALS: BP 105/61
== END ==
LOC: CARD 07:42
PROVIDERS: ATTEND Internal Medicine Interventional Cardiology
DX: J44.9 Chronic obstructive pulmonary disease, unspecified (principal); R00.2 Palpitations; R07.2 Precordial pain; F17.200 Nicotine dependence, unspecified, uncomplicated
CPT/HCPCS: 78452; 93017

== ENCOUNTER 2019-08-28 08:40 | Outpatient (RCR) | payer OTHER ==
[~2019-08-28 08:40] MED LIST changes: +ASCO250T55 PO; -REGADENOSON 0.4 MG/5 ML SYR (LEXISCAN) IV ONE; -[UNRECOGNIZED DRUG - CODE] PO
== END 2019-11-26 | disposition home or self-care (01) ==
LOC: CARD 08:40
PROVIDERS: ATTEND Internal Medicine Interventional Cardiology
DX: R00.2 Palpitations (principal); R07.2 Precordial pain; J44.9 Chronic obstructive pulmonary disease, unspecified; F17.200 Nicotine dependence, unspecified, uncomplicated
CPT/HCPCS: 93270; 93306

== ENCOUNTER 2019-09-24 19:47 | Emergency (ER) | payer SELFPAY ==
[~2019-09-24] VITALS: Ht 165 cm; Wt 55.7 kg
[~2019-09-24 19:47] MED LIST changes: -ASCO250T55 PO; +[UNRECOGNIZED DRUG - CODE] PO
--- OUTSIDE RECORDS SUMMARY | 2019-09-24 19:55 | XMS REPORT ---
Author Author Karolina PINEDA Organization [facility] Address [address] [place] [address] Care Team Providers Care Track Grinder Name Role Phone OPAL PINEDA Unavailable PROBLEMS Type Condition ICD9-CM Code GAS57-RE Code Onset Dates Condition S tatus SNOMED Code Problem Palpitations R00.2 Active 8564633 2 Problem Near syncope R55 Active 6672793 00 Problem Cigarette nicotine dependence without complication F17.210 Active 52799464 Problem Mild intermittent asthma without complication J45. 20 Active 257951660 Problem Hearing loss of right ear, unspecified hearing loss type H91.91 Active 722363514 Problem Seasonal allergic rhinitis, unspecified allergic rhinitis trigger J30.2 Active 335267862 Problem Other chronic pain G89.29 Active 8 8699477 Problem Anxiety F41.9 Active 03799967 Problem Family history of Parkinson's disease Z82.0 Active 807817452 ALLERGIES No Information ENCOUNTERS Encounter Location Date Diagnosis [place] [address] [address] 12 Jul, [address] [address] 10 Jul, 2019 Other hypotension I95.89 ; Hypovolemia E 86.1 ; Cigarette nicotine dependence without complication F17.210 and Palpitations R00.2 [facility] [address] [address] 07 Jul, 2019 Orthostatic hypotension I95.[address] [address] 06 Jul, 2019 Orthostatic hypotension I95.1 and Nausea R11.0 [place] [address] [address] Jul, [place] [address] [address] Jun, [place] [address] [address] Jun, [place] [address] [address] Jun, [place] [address] [address] May, Localized edema R60.0 [place] [address] [address] May, [facility] [place] [address] [address] May, Sore throat J02.9 [facility] [place] [address] [address] Apr, Sore throat J02.[address] for immunization Z23 [place] [address] [address] Apr, [place] [address] [address] Mar, [place] [address] [address] Feb, [place] [address] [address] Feb, History of pneumonia Z87.01 and Cigarett e nicotine dependence without complication F17.210 [facility] [place] [address] [address] Feb, Viral illness B34.9 and Bron chitis J40 [place] [address] [address] Jan, Palpitations R00.2 and Hearing loss of r ight ear, unspecified hearing loss type H91.91 [facility] [address] [address] Dec, Sore throat J02.9 and Strep throat exposure Z20.818 [place] [address] [address] Dec, Palpitations R00.2 and Mild intermittent asthma without complication J45.20 [place] [address] [address] Dec, [facility] [address] [address] Sep, Sore throat J02.9 [facility] [place] [address] [address] Aug, Viral upper respiratory trac t infection J06.9 [place] [address] [address] Aug, [facility] [place] [address] [address] Aug, Viral URI J06.9 [facility] [place] [address] [address] Apr, Acute suppurative otitis med ia of both ears without spontaneous rupture of tympanic membranes, recurrence not specified H66.003 [place] [address] [address] October, [place] [address] [address] Aug, Palpitations R00.2 ; Anxiety F41.9 and F amily history of Parkinson's disease Z82.0 [place] [address] [address] Jun, [place] [address] [address] May, [place] [address] [address] May, Pain in right ankle and joints of right foot M25.571 ; Other chronic pain G89.29 and Plantar fasciitis M72.2 [place] [address] [address] Mar, Body aches R52 and Flu-like symptoms R68 .89 [facility] [place] [address] [address] Feb, Seasonal allergic rhinitis, unspecified allergic rhinitis trigger J30.2 and Bronchitis J40 [place] [address] [address] Sep, [place] [address] [address] Aug, Palpitations R00.2 [place] [address] [address] Jul, Gastroenteritis K52.9 and Nonscarring banks ir loss L65.[address] [address] Jun, Acute bronchitis, unspecified organism J 20.9 [facility] [address] [address] May, Seasonal allergic rhinitis, unspecified allergic rhinitis trigger J30.[address] [address] May, Anxiety attack F41.[address] [address] May, Near syncope R55 [facility] [address] [address] Apr, Bronchitis J40 [address] [address] Mar, Palpitations R00.2 and Near syncope R55 [address] [address] 27 Feb, 2016 [facility] IN [address] [place] [address] Jan, Acute sinusitis, recurrence not specified, unspecified location J01.90 [place] [address] [address] Dec, Palpitations R00.2 and Cigarette nicotin e dependence without complication F17.210 [place] [address] [address] Nov, [place] [address] [address] October, Heart palpitations R00.2 and Chronic ten juan headaches G44.229 [place] [address] [address] Aug, Palpitations R00.2 ; Near syncope R55 an d Chronic tension headaches G44.229 [place] [address] [address] Jul, Palpitations R00.2 [place] [address] [address] Jul, [place] [address] [address] Jun, Heart palpitations R00.2 IMMUNIZATIONS No Known Immunizations SOCIAL HISTORY Never Assessed REASON FOR VISIT Medication Refill PLAN OF CARE VITAL SIGNS MEDICATIONS Medication Instructions Dosage Frequency Start Date End Date Duration S tatus Propranolol HCl 20 mg Orally Twice a day 1 tablet 12h 30 Active RESULTS No Results PROCEDURES No Known procedures INSTRUCTIONS MEDICATIONS ADMINISTERED No Known Medications MEDICAL (GENERAL) HISTORY Type Description Date Medical History Irregular Heartbeat Medical History sepsis/pneumonia/ copd exac Surgical History Cervix 02/2015 Surgical History Screws and pins Right foot Surgical History Appendectomy Surgical History Cone biopsy laser surgery on cervix 07/29 991 Surgical History 2 Miscarriages/DNC x 2 Hospitalization History Surgery/ Child births Hospitalization History [facility] - 4 days 01/2019
--- OUTSIDE RECORDS SUMMARY | 2019-09-24 19:55 | XMS REPORT ---
Author Author YVESKarolina HA [facility] Address [address] [place] [address] Care Team Providers Care Level Vial Curvature Gauger Name Role Phone KERI MARINELLI Unavailable PROBLEMS Type Condition ICD9-CM Code EOT63-JZ Code Onset Dates Condition S tatus SNOMED Code Problem Palpitations R00.2 Active 3535116 2 Problem Near syncope R55 Active 2083462 00 Problem Cigarette nicotine dependence without complication F17.210 Active 72635664 Problem Mild intermittent asthma without complication J45. 20 Active 196350147 Problem Hearing loss of right ear, unspecified hearing loss type H91.91 Active 222740826 Problem Seasonal allergic rhinitis, unspecified allergic rhinitis trigger J30.2 Active 491591592 Problem Other chronic pain G89.29 Active 8 3732698 Problem Anxiety F41.9 Active 54110351 Problem Family history of Parkinson's disease Z82.0 Active 298281860 ALLERGIES Substance Reaction Event Type Date Status Morphine Sulfate Unknown Drug Allergy Aug, Active Hydrocodone-Acetaminophen Unknown Drug Allergy Aug, Ac tive Codeine Sulfate Unknown Drug Allergy Aug, Active Sulfamethoxazole-Trimethoprim Unknown Drug Allergy Aug, 9 Active Penicillin V Potassium Unknown Drug Allergy Aug, Activ e Oxycodone-Acetaminophen Unknown Drug Allergy Aug, Acti ve ENCOUNTERS Encounter Location Date Diagnosis [place] [address] [address] [place] [address] Aug, [facility] [id number] [place] [address] Jul, Cigarette nicotine dependence without co mplication F17.210 [facility] [address] [id number] [place] [address] 12 Jul, 2019 [facility] [address] [id number] [place] [address] Jul, Other hypotension I95.89 ; Hypovolemia E 86.1 ; Cigarette nicotine dependence without complication F17.210 and Palpitations R00.2 [place] [address] [address] 07 Jul, 2019 Orthostatic hypotension I95.1 [place] [address] [address] 06 Jul, 2019 Orthostatic hypotension I95.1 and Nausea R11.0 [place] [address] [address] 05 Jul, 2019 [place] [address] [address] Jun, [place] [address] [address] Jun, [place] [address] [address] Jun, [place] [address] [address] May, Localized edema R60.0 [place] [address] [address] May, [facility] [address] [place] [address] May, Sore throat J02.9 [facility] [address] [place] [id number] [place] [address] Apr, Sore throat J02.[address] for immunization Z23 [place] [address] [address] Apr, [place] [address] [address] Mar, [place] [address] [address] Feb, [place] [address] [address] 10 Feb, 2019 History of pneumonia Z87.01 and Cigarett e nicotine dependence without complication F17.210 [facility] [id number] [place] [address] Feb, Viral illness B34.9 and Bron chitis J40 [facility] [id number] [place] [address] Jan, Palpitations R00.2 and Hearing loss of r ight ear, unspecified hearing loss type H91.91 [facility] [address] [place] [id number] [place] [address] Dec, Sore throat J02.9 and Strep throat exposure Z20.818 [place] [address] [address] Dec, Palpitations R00.2 and Mild intermittent asthma without complication J45.20 [place] [address] [address] Dec, [facility] [address] [address] Sep, Sore throat J02.9 [facility] [place] [id number] [place] [address] Aug, Viral upper respiratory trac t infection J06.9 [place] [address] [address] Aug, [facility] [address] [place] [address] [id number] [place] [address] Aug, Viral URI J06.9 [facility] [place] [id number] [place] [address] Apr, Acute suppurative otitis med ia of both ears without spontaneous rupture of tympanic membranes, recurrence not specified H66.003 [place] [address] [address] October, [place] [address] [address] Aug, Palpitations R00.2 ; Anxiety F41.9 and F amily history of Parkinson's disease Z82.0 [place] [address] [address] Jun, [place] [address] [address] May, [place] [address] [address] May, Pain in right ankle and joints of right foot M25.571 ; Other chronic pain G89.29 and Plantar fasciitis M72.2 [place] [address] [address] Mar, Body aches R52 and Flu-like symptoms R68 .89 [facility] [place] [id number] [place] [address] Feb, Seasonal allergic rhinitis, unspecified allergic rhinitis trigger J30.2 and Bronchitis J40 [place] [address] [address] Sep, [place] [address] [address] Aug, Palpitations R00.2 [place] [address] [address] Jul, Gastroenteritis K52.9 and Nonscarring banks ir loss L65.9 [place] [address] [address] Jun, Acute bronchitis, unspecified organism J 20.9 [facility] [place] [id number] [place] [address] May, Seasonal allergic rhinitis, unspecified allergic rhinitis trigger J30.2 [place] [address] [address] May, Anxiety attack F41.0 [place] [address] [address] 12 May, 2016 Near syncope R55 [facility] [address] [address] 08 Apr, 2016 Bronchitis J40 [place] [address] [address] 10 Mar, 2016 Palpitations R00.2 and Near syncope R55 [place] [address] [address] 27 Feb, 2016 [facility] [address] [place] [address] Jan, Acute sinusitis, recurrence not specified, unspecified location J01.90 [place] [address] [address] Dec, Palpitations R00.2 and Cigarette nicotin e dependence without complication F17.210 [place] [address] [address] Nov, [place] [address] [address] October, Heart palpitations R00.2 and Chronic ten juan headaches G44.229 [place] [address] [address] Aug, Palpitations R00.2 ; Near syncope R55 an d Chronic tension headaches G44.229 [place] [address] [address] Jul, Palpitations R00.2 [place] [address] [address] Jul, [place] [address] [address] Jun, Heart palpitations R00.2 IMMUNIZATIONS No Known Immunizations SOCIAL HISTORY Never Assessed REASON FOR VISIT Diagnosed with Bronchitis Wednesday,still coughing,shortness of breath,unsure of an y fevers----rene dickens PLAN OF CARE Activity Details Follow Up as needed or reg fu with pc p Reason: VITAL SIGNS Height 65.0 in 2018-09-21 Weight 139.2 lbs 2018-09-21 Temperature 97.2 degrees Fahrenheit 2018-09-21 Heart Rate 92 bpm 2018-09-21 Respiratory Rate 20 2018-09-21 Oximetry 98 % 2018-09-21 BMI 23.16 kg/m2 2018-09-21 Blood pressure systolic 98 mmHg 2018-09-21 Blood pressure diastolic 68 mmHg 2018-09-21 MEDICATIONS Medication Instructions Dosage Frequency Start Date End Date Duration S tatus Fluticasone Propionate 50 MCG/ACT USE ONE SPRAY INTO EACH NOSTRIL ONCE DAILY 60 Active Claritin 10 mg Orally Once a day 1 tablet 24h October, Active Tessalon Perles 100 mg Orally Three times a day 1 capsule as needed 8h Aug, 10 days Active Vitamin C Gummie 120 MG as directed Active Biotin Active Propranolol HCl 20 mg Orally Twice a day 1 tablet 12h 30 Active ProAir HFA 108 (90 Base) MCG/ACT INHALE TWO PUFFS BY MOUTH EVERY 4 HOURS NEEDED. 17 Active PredniSONE 20 mg Orally Once a day 2 tablets 24h Aug, 5 days Active One Daily For Women Acti ve Motrin 200 by oral route 3 times a day 3 tabes 8h Active RESULTS No Results PROCEDURES No Known [...] Hospitalization History Surgery/ Child births Hospitalization History [facility] - 4 days 01/2019
--- OUTSIDE RECORDS SUMMARY | 2019-09-24 19:56 | XMS REPORT | Continuity of Care Document ---
Author Organization Unknown Address Unknown Phone Unavailable Allergies Active Description Code Type Severity Reaction Onset Reported/Identified Relationship to Patient Clinical Status Yes PENICILLINS MODERATE MODERATE Yes SULFA (SULFONAMIDE ANTIBIOTICS) MODERATE MODERATE Yes Penicillins [id number] Drug Aller gy Unknown N/A 03/06/2015 Yes levofloxacin [id number] Drug Allergy Mild Itching 03/01/2019 Yes Sulfa (Sulfonamide Antibiotics) [id number] Drug Allergy Unknown Hives 020 Medications There is no data. 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 04/04/2015 MILEY JAIMES DO Ot O09.522 SUPERVISION OF ELDERLY MULTIGRAVIDA, SEC 04/04/2015 MILEY JAIMES DO Ot O34.32 MATERNAL CARE FOR CERVICAL INCOMPETENCE, 04/04/2015 MILEY JAIMES DO Ot O42.912 PRETRM EVER ROM, UNSP TIME BETW RUPT AND 04/04/2015 MILEY JAIMES DO Ot Z3A.19 19 WEEKS GESTATION OF 04/23/2015 MILEY JAIMES DO Ot 349.0 05/02/2015 MILEY JAIMES DO Ot 349.0 07/19/2015 MILEY JAIMES DO Ot 654.53 07/19/2015 MILEY JAIMES DO Ot V72.84 07/19/2015 MILEY JAIMES DO Ot V74.8 07/19/2015 MILEY JAIMES DO Ot 349.0 07/19/2015 LALO BOLAÑOS, RENEE Wesley Ot F17.210 07/19/2015 LALO BOLAÑOS, RENEE Wesley Ot R42 07/19/2015 RENEE MAY MD Ot R51 07/19/2015 RENEE MAY MD Ot F17.210 NICOTINE DEPENDENCE, CIGARETTES, UNCOMPL 07/19/2015 LALO BOLAÑOS, RENEE Wesley Ot R42 DIZZINESS AND GIDDINESS 07/19/2015 RENEE MAY MD Ot R51 HEADACHE 07/19/2015 LALO BOLAÑOS, RENEE Wesley Ot F17.210 07/19/2015 RENEE MAY MD Ot R42 07/19/2015 RENEE MAY MD Ot R51 09/27/2015 FENECH DO, MILEY S Ot 654.53 09/27/2015 FENECH DO, MILEY S Ot V72.84 09/27/2015 FENECH DO, MILEY S Ot V74.8 09/27/2015 FENECH DO, MILEY S Ot 349.0 10/04/2015 EDWIN BOLAÑOS, OPAL Booker Ot R55 11/09/2015 OPAL PINEDA MD Ot R55 SYNCOPE AND COLLAPSE 06/06/2016 ADELAIDA BOLAÑOS, VANDA Gant Ot F17.210 NICOTINE DEPENDENCE, CIGARETTES, UNCOMPL 06/06/2016 VANDA SON MD Ot F41. 9 ANXIETY DISORDER, UNSPECIFIED 06/06/2016 VANDA SON MD Ot R06. 02 SHORTNESS OF BREATH 06/06/2016 VANDA SON MD Ot R25. 1 TREMOR, UNSPECIFIED 09/23/2016 OPAL PINEDA MD Ot R55 SYNCOPE AND COLLAPSE 03/03/2019 MAXWELL RANGEL MD Ot A41 .9 SEPSIS, UNSPECIFIED ORGANISM 03/03/2019 MAXWELL RANGEL MD Ot F17.210 NICOTINE DEPENDENCE, CIGARETTES, UNCOMPL 03/03/2019 MAXWELL RANGEL MD Ot G44.209 TENSION-TYPE HEADACHE, UNSPECIFIED, NOT 03/03/2019 MAXWELL RANGEL MD Ot I48.91 UNSPECIFIED ATRIAL FIBRILLATION 03/03/2019 MAXWELL RANGEL MD Ot J18 .1 LOBAR PNEUMONIA, UNSPECIFIED ORGANISM 03/03/2019 MAXWELL RANGEL MD Ot J44 .0 CHRONIC OBSTRUCTIVE PULMON DISEASE W ACU 03/03/2019 MAXWELL RANGEL MD Ot J44 .1 CHRONIC OBSTRUCTIVE PULMONARY DISEASE W 03/03/2019 MAXWELL RANGEL MD Ot R07 .0 PAIN IN THROAT 03/03/2019 MAXWELL RANGEL MD Ot R51 HEADACHE 03/03/2019 MAXWELL RANGEL MD Ot Z85.41 PERSONAL HISTORY OF MALIGNANT NEOPLASM O 03/03/2019 JUAN CARLOS BOLAÑOS, MAXWELL Fisher Ot Z88 .0 ALLERGY STATUS TO PENICILLIN 03/03/2019 JUAN CARLOS BOLAÑOS, MAXWELL Fisher Ot Z88 .1 ALLERGY STATUS TO OTHER ANTIBIOTIC AGENT 03/22/2019 HAIMECH DO, MILEY S Ot 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 03/22/2019 FENECH DO, MILEY S Ot V72.84 EXAM PRE-OPERATIVE NOS 03/22/2019 FENECH DO, MILEY S Ot V74.8 SCREEN-BACTERIAL DIS NEC 03/22/2019 FENECH DO, MILEY S Ot 349.0 LUMBAR PUNCTURE REACTION 03/22/2019 OPAL PINEDA MD Ot R55 SYNCOPE AND COLLAPSE 04/03/2019 FENECH DO, MILEY S Ot 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 04/03/2019 FENECH DO, MILEY S Ot V72.84 EXAM PRE-OPERATIVE NOS 04/03/2019 FENECH DO, MILEY S Ot V74.8 SCREEN-BACTERIAL DIS NEC 04/03/2019 FENECH DO, MILEY S Ot 349.0 LUMBAR PUNCTURE REACTION 04/03/2019 OPAL PINEDA MD Ot R55 SYNCOPE AND COLLAPSE 04/14/2019 FENECH DO, MILEY S Ot 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 04/14/2019 FENECH DO, MILEY S Ot V72.84 EXAM PRE-OPERATIVE NOS 04/14/2019 FENECH DO, MILEY S Ot V74.8 SCREEN-BACTERIAL DIS NEC 04/14/2019 FENECH DO, MILEY S Ot 349.0 LUMBAR PUNCTURE REACTION 04/14/2019 OPAL PINEDA MD Ot R55 SYNCOPE AND COLLAPSE 05/08/2019 FENECH DO, MILEY S Ot 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 05/08/2019 FENECH DO, MILEY S Ot V72.84 EXAM PRE-OPERATIVE NOS 05/08/2019 FENECH DO, MILEY S Ot V74.8 SCREEN-BACTERIAL DIS NEC 05/08/2019 FENECH DO, MILEY S Ot 349.0 LUMBAR PUNCTURE REACTION 05/08/2019 OPAL PINEDA MD Ot R55 SYNCOPE AND COLLAPSE 06/19/2019 YVES LINK APRN Ot F17.200 NICOTINE DEPENDENCE, UNSPECIFIED, UNCOMP 06/19/2019 YVES LINK APRN Ot J18.9 PNEUMONIA, UNSPECIFIED ORGANISM 06/19/2019 YVES LINK APRN Ot J30.9 ALLERGIC RHINITIS, UNSPECIFIED 06/19/2019 YVES LINK APRN Ot J44.9 CHRONIC OBSTRUCTIVE PULMONARY DISEASE, U 06/19/2019 YVES LINK APRN Ot R91.1 SOLITARY PULMONARY NODULE 06/22/2019 YVES LINK APRN Ot F17.200 NICOTINE DEPENDENCE, UNSPECIFIED, UNCOMP 06/22/2019 YVES LINK APRN Ot J18.9 PNEUMONIA, UNSPECIFIED ORGANISM 06/22/2019 YVES LINK APRN Ot J30.9 ALLERGIC RHINITIS, UNSPECIFIED 06/22/2019 YVES LINK APRN Ot J44.9 CHRONIC OBSTRUCTIVE PULMONARY DISEASE, U 06/22/2019 YVES LINK APRN Ot R91.1 SOLITARY PULMONARY NODULE 06/23/2019 DL BELL DO, Ot Z01.818 ENCOUNTER FOR OTHER PREPROCEDURAL EXAMIN 06/29/2019 DL BELL DO, Ot F17.210 NICOTINE DEPENDENCE, CIGARETTES, UNCOMPL 06/29/2019 DL BELL DO, Ot J18. 9 PNEUMONIA, UNSPECIFIED ORGANISM 06/29/2019 DL BELL DO, Ot J44. 9 CHRONIC OBSTRUCTIVE PULMONARY DISEASE, U 06/29/2019 DL BELL DO, Ot R91. 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 9 FAMILY HISTORY OF MALIGNANT NEOPLASM, UN 06/29/2019 DL BELL DO, Ot Z82. 49 FAMILY HX OF ISCHEM HEART DIS AND OTH DI 06/29/2019 DL BELL DO, Ot Z83. 6 FAMILY HISTORY OF OTHER DISEASES OF THE 06/29/2019 DL BELL DO, Ot Z88. 0 ALLERGY STATUS TO PENICILLIN 06/29/2019 DL BELL DO, Ot Z88. 1 ALLERGY STATUS TO OTHER ANTIBIOTIC AGENT 07/03/2019 YVES LINK APRN Ot F17.200 NICOTINE DEPENDENCE, UNSPECIFIED, UNCOMP 07/03/2019 YVES LINK APRN Ot J18.9 PNEUMONIA, UNSPECIFIED ORGANISM 07/03/2019 YVES LINK APRN Ot J30.9 ALLERGIC RHINITIS, UNSPECIFIED 07/03/2019 YVES LINK APRN Ot J44.9 CHRONIC OBSTRUCTIVE PULMONARY DISEASE, U 07/03/2019 YVES LINK APRN Ot R91.1 SOLITARY PULMONARY NODULE 07/06/2019 DL BELL DO Ot F17.210 NICOTINE DEPENDENCE, CIGARETTES, UNCOMPL 07/06/2019 DL BELL DO Ot J18. 9 PNEUMONIA, UNSPECIFIED ORGANISM 07/06/2019 DL BELL DO Ot J44. 9 CHRONIC OBSTRUCTIVE PULMONARY DISEASE, U 07/06/[address] MEJIAS Ot R91. 1 SOLITARY PULMONARY NODULE 07/06/2019 DL BELL DO Ot Z79.899 OTHER CUSTODIAL (CURRENT) DRUG THERAPY 07/06/2019 DL BELL DO Ot Z80. 9 FAMILY HISTORY OF MALIGNANT NEOPLASM, UN 07/06/2019 DL BELL DO Ot Z82. 49 FAMILY HX OF ISCHEM HEART DIS AND OTH DI 07/06/2019 DL BELL DO Ot Z83. 6 FAMILY HISTORY OF OTHER DISEASES OF THE 07/06/2019 DL BELL DO Ot Z88. 0 ALLERGY STATUS TO PENICILLIN 07/06/2019 DL BELL DO Ot Z88. 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 07/10/2019 MILEY JAIMES DO Ot V72.84 EXAM PRE-OPERATIVE NOS 07/10/2019 MILEY JAIMES DO Ot V74.8 SCREEN-BACTERIAL DIS NEC 07/10/2019 MILEY JAIMES DO Ot 349.0 LUMBAR PUNCTURE REACTION 07/10/2019 EDWIN BOLAÑOS, OPAL Booker Ot R55 SYNCOPE AND COLLAPSE 07/10/2019 YVES LINK APRN Ot F17.200 NICOTINE DEPENDENCE, UNSPECIFIED, UNCOMP 07/10/2019 YVES LINK APRN Ot J18.9 PNEUMONIA, UNSPECIFIED ORGANISM 07/10/2019 YVES LINK APRN Ot J30.9 ALLERGIC RHINITIS, UNSPECIFIED 07/10/2019 YVES LINK APRN Ot J44.9 CHRONIC OBSTRUCTIVE PULMONARY DISEASE, U 07/10/2019 YVES LINK APRN Ot R91.1 SOLITARY PULMONARY NODULE 07/10/2019 FRANSISCO RODRÍGUEZ MD, Ot F17.210 NICOTINE DEPENDENCE, CIGARETTES, UNCOMPL 07/10/2019 FRANSISCO RODRÍGUEZ MD Ot I48.91 UNSPECIFIED ATRIAL FIBRILLATION 07/10/2019 FRANSISCO RODRÍGUEZ MD, Ot J44.9 CHRONIC OBSTRUCTIVE PULMONARY DISEASE, U 07/10/2019 FRANSISCO RODRÍGUEZ MD, Ot M54.9 DORSALGIA, UNSPECIFIED 07/10/2019 FRANSISCO RODRÍGUEZ MD, Ot R42 DIZZINESS AND GIDDINESS 07/10/2019 FRANSISCO RODRÍGUEZ MD Ot Z79.51 CUSTODIAL (CURRENT) USE OF INHALED STERO 07/10/2019 FRANSISCO RODRÍGUEZ MD, Ot Z80.8 FAMILY HISTORY OF MALIGNANT NEOPLASM OF 07/10/2019 FRANSISCO RODRÍGUEZ MD Ot Z82.49 FAMILY HX OF ISCHEM HEART DIS AND OTH DI 07/10/2019 FRANSISCO RODRÍGUEZ MD Ot Z85.41 PERSONAL HISTORY OF MALIGNANT NEOPLASM O 07/10/2019 FRANSISCO RODRÍGUEZ MD Ot Z88.0 ALLERGY STATUS TO PENICILLIN 07/10/2019 FRANSISCO RODRÍGUEZ MD Ot Z88.1 ALLERGY STATUS TO OTHER ANTIBIOTIC AGENT 07/10/2019 FRANSISCO RODRÍGUEZ MD Ot Z88.2 ALLERGY STATUS TO SULFONAMIDES STATUS 07/10/2019 FRANSISCO RODRÍGUEZ MD Ot Z90.49 ACQUIRED ABSENCE OF OTHER SPECIFIED PART 07/10/2019 FRANSISCO RODRÍGUEZ MD Ot Z90.710 ACQUIRED ABSENCE OF BOTH CERVIX AND UTER 07/14/2019 FRANSISCO RODRÍGUEZ MD Ot F17.210 NICOTINE DEPENDENCE, CIGARETTES, UNCOMPL 07/14/2019 FRANSISCO RODRÍGUEZ MD Ot I48.91 UNSPECIFIED ATRIAL FIBRILLATION 07/14/2019 FRANSISCO RODRÍGUEZ MD, Ot J44.9 CHRONIC OBSTRUCTIVE PULMONARY DISEASE, U 07/14/2019 FRANSISCO RODRÍGUEZ MD Ot M54.9 DORSALGIA, UNSPECIFIED 07/14/2019 FRANSISCO RODRÍGUEZ MD, Ot R42 DIZZINESS AND GIDDINESS 07/14/2019 FRANSISCO RODRÍGUEZ MD, Ot Z79.51 CUSTODIAL (CURRENT) USE OF INHALED STERO 07/14/2019 FRANSISCO RODRÍGUEZ MD, Ot Z80.8 FAMILY HISTORY OF MALIGNANT NEOPLASM OF 07/14/2019 FRANSISCO RODRÍGUEZ MD, Ot Z82.49 FAMILY HX OF ISCHEM HEART DIS AND OTH DI 07/14/2019 FRANSISCO RODRÍGUEZ MD, Ot Z85.41 PERSONAL HISTORY OF MALIGNANT NEOPLASM O 07/14/2019 FRANSISCO RODRÍGUEZ MD, Ot Z88.0 ALLERGY STATUS TO PENICILLIN 07/14/2019 FRANSISCO RODRÍGUEZ MD, Ot Z88.1 ALLERGY STATUS TO OTHER ANTIBIOTIC AGENT 07/14/2019 FRANSISCO RODRÍGUEZ MD, Ot Z88.2 ALLERGY STATUS TO SULFONAMIDES STATUS 07/14/2019 FRANSISCO RODRÍGUEZ MD, Ot Z90.49 ACQUIRED ABSENCE OF OTHER SPECIFIED PART 07/14/2019 FRANSISCO RODRÍGUEZ MD, Ot Z90.710 ACQUIRED ABSENCE OF BOTH CERVIX AND UTER 07/25/2019 YVES LINK APRN Ot J44.9 CHRONIC OBSTRUCTIVE PULMONARY DISEASE, U 07/27/2019 FENMILEY CONNELLY DO Ot 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 07/27/2019 MILEY JAIMES DO Ot V72.84 EXAM PRE-OPERATIVE NOS 07/27/2019 MILEY JAIMES DO Ot V74.8 SCREEN-BACTERIAL DIS NEC 07/27/2019 MILEY JAIMES DO Ot 349.0 LUMBAR PUNCTURE REACTION 07/27/2019 EDWIN BOLAÑOS, OPAL Booker Ot R55 SYNCOPE AND COLLAPSE 07/27/2019 YVES LINK APRN Ot F17.200 NICOTINE DEPENDENCE, UNSPECIFIED, UNCOMP 07/27/2019 YVES LINK APRN Ot J18.9 PNEUMONIA, UNSPECIFIED ORGANISM 07/27/2019 YVES LINK APRN Ot J30.9 ALLERGIC RHINITIS, UNSPECIFIED 07/27/2019 YVES LINK APRN Ot J44.9 CHRONIC OBSTRUCTIVE PULMONARY DISEASE, U 07/27/2019 YVES LINK APRN Ot R91.1 SOLITARY PULMONARY NODULE 07/27/2019 YVES LINK APRN Ot J44.9 CHRONIC OBSTRUCTIVE PULMONARY DISEASE, U 07/27/2019 VANDA SON MD Ot F17.210 NICOTINE DEPENDENCE, CIGARETTES, UNCOMPL 07/27/2019 VANDA SON MD Ot I48. 91 UNSPECIFIED ATRIAL FIBRILLATION 07/27/2019 VANDA SON MD Ot J44. 9 CHRONIC OBSTRUCTIVE PULMONARY DISEASE, U 07/27/2019 VANDA SON MD Ot R07. 9 CHEST PAIN, UNSPECIFIED 07/27/2019 VANDA SON MD Ot R53. 83 OTHER FATIGUE 07/27/2019 VANDA SON MD Ot T44.7X5A ADVERSE EFFECT OF BETA-ADRENORECEPTOR AN 07/27/2019 VANDA SON MD Ot Z79. 51 GROCERY DEPARTMENT MANAGER (CURRENT) USE OF INHALED STERO 07/27/2019 VANDA SON MD Ot Z80. 41 FAMILY HISTORY OF MALIGNANT NEOPLASM OF 07/27/2019 VANDA SON MD Ot Z80. 8 FAMILY HISTORY OF MALIGNANT NEOPLASM OF 07/27/2019 VANDA SON MD Ot Z85. 41 PERSONAL HISTORY OF MALIGNANT NEOPLASM O 07/27/2019 VANDA SON MD Ot Z88. 0 ALLERGY STATUS TO PENICILLIN 07/27/2019 VANDA SON MD Ot Z88. 1 ALLERGY STATUS TO OTHER ANTIBIOTIC AGENT 07/27/2019 VANDA SON MD Ot Z88. 2 ALLERGY STATUS TO SULFONAMIDES STATUS 08/09/2019 LEISURE, LYNHÉCTORA W 780.79 OTHER MALAISE AND FATIGUE 08/09/2019 LEISURE, LYNIETA W 995.29 UNSPECIFIED ADVERSE EFFECT OF OTHER DRUG, MEDICINAL AND BIOLOGICAL SUBSTANCE 08/09/2019 LEISURE, LYNIETA W R53.83 OTHER FATIGUE 08/09/2019 LEISURE, LYNHÉCTORA W T44.7X 5A ADVERSE EFFECT OF BETA-ADRENORECEPTOR ANTAGONISTS, INIT 08/23/2019 YVES LINK APRN Ot J44.9 CHRONIC OBSTRUCTIVE PULMONARY DISEASE, U 08/28/2019 Fox AMEZQUITA MD Ot F17.200 NICOTINE DEPENDENCE, UNSPECIFIED, UNCOMP 08/28/2019 Fox AMEZQUITA MD Ot J44 .9 CHRONIC OBSTRUCTIVE PULMONARY DISEASE, U 08/28/2019 Fox AMEZQUITA MD Ot R00 .2 PALPITATIONS 08/28/2019 BIA BOLAÑOS, Fox BURLESON Ot R07 .2 PRECORDIAL PAIN 09/18/2019 BIA BOLAÑOS, Fox BURLESON Ot F17.200 NICOTINE DEPENDENCE, UNSPECIFIED, UNCOMP 09/18/2019 BIA BOLAÑOS, Fox BURLESON Ot J44 .9 CHRONIC OBSTRUCTIVE PULMONARY DISEASE, U 09/18/2019 BIA BOLAÑOS, Fox BURLESON Ot R00 .2 PALPITATIONS 09/18/2019 BIA BOLAÑOS, Fox BURLESON Ot R07 .2 PRECORDIAL PAIN Procedures Code Description Performed By Per formed On [id number] RE MOVE OF INTRALUM DEV FROM UTERUS CER 04/03/2015 [id number] DE LIVERY OF PRODUCTS OF CONCEPTION, EXTE 04/03/2015 [id number] IN TRODUCE OF OTH THERAP SUBST INTO FEM R 04/03/2015 Results Test Result Range Complete blood count (CBC) with automate d white blood cell (WBC) differential - 06/06/16 11:00 Blood leukocytes automated count (number/volume) 11.4 10*3/uL 4.3-11.0 Blood erythrocytes automated count (number/volume) 4.46 10*6/uL 4.35-5.85 Venous blood hemoglobin measurement (mass/volume) 14.2 g/dL 11.5-16.0 Blood hematocrit (volume fraction) 42 % 35-52 Automated erythrocyte mean corpuscular volume 94 [ foz_us] 80-99 Automated erythrocyte mean corpuscular h emoglobin (mass per erythrocyte) 32 pg 25-34 Automated erythrocyte mean corpuscular h emoglobin concentration measurement (mass/volume) 34 g/dL 32-36 Automated erythrocyte distribution width ratio 12. 8 % 10.0- 14.5 Automated blood platelet count (count/volume) 208 10*3/uL 130-400 Automated blood platelet mean volume measurement 9.9 [foz_us] 7.4-10.4 Automated blood neutrophils/100 leukocytes 85 % 42-75 Automated blood lymphocytes/100 leukocytes 11 % 12-44 Blood monocytes/100 leukocytes 3 % 0-12 Automated blood eosinophils/100 leukocytes 2 % 0-10 Automated blood basophils/100 leukocytes 0 % 0-10 Blood neutrophils automated count (number/volume) 9.6 10*3 1.8-7.8 Blood lymphocytes automated count (number/volume) 1.2 10*3 1.0-4.0 Blood monocytes automated count (number/volume) 0. 4 10*3 0.0-1.0 Automated eosinophil count 0.2 10*3/uL 0 .0-0.3 Automated blood basophil count (count/volume) 0.0 10*3/uL 0.0-0.1 Urine beta human chorionic gonadotropin (hCG) measurement - 06/06/16 11:00 Urine beta human chorionic gonadotropin (hCG) measurem ent NEGATIVE NEGATIVE Urine drug screening test - 06/06/16 11: 00 Urine phencyclidine detection by screening method NEGATIVE NEGATIVE Urine benzodiazepines detection by screening method NEGATIVE NEGATIVE Urine cocaine detection NEGATIVE NEGATI VE Urine amphetamines detection by screening method N EGATIVE NEGATIVE Urine methamphetamine detection by screening method NEGATIVE NEGATIVE Urine cannabinoids detection by screening method N EGATIVE NEGATIVE Urine opiates detection by screening method NEGATI VE NEGATIVE Urine barbiturates detection NEGATIVE N EGATIVE Screening urine tricyclic antidepressants detection NEGATIVE NEGATIVE Urine methadone detection by screening method NEGA TIVE NEGATIVE Urine oxycodone detection NEGATIVE NEGA TIVE Urine propoxyphene detection NEGATIVE N EGATIVE Fibrin D-dimer FEU measurement in platel et poor plasma (mass/volume) - 06/06/16 11:00 Fibrin D-dimer FEU measurement in platelet poor plasma (mass/volume) 0.44 ug/mL 0.00-0.49 Comprehensive metabolic panel - 06/06/16 11:00 Serum or plasma sodium measurement (moles/volume) 140 mmol/L 135-145 Serum or plasma potassium measurement (moles/volume) 3.7 mmol/L 3.6-5.0 Serum or plasma chloride measurement (moles/volume) 112 mmol/L 98-107 Carbon dioxide 19 mmol/L 21-32 Serum or plasma anion gap determination (moles/volume) 9 mmol/L 5-14 Serum or plasma urea nitrogen measurement (mass/volume ) 12 mg/dL 7-18 Serum or plasma creatinine measurement (mass/volume) 0.65 mg/dL 0.60-1.30 Serum or plasma urea nitrogen/creatinine mass ratio 18 NRG Serum or plasma creatinine measurement w ith calculation of estimated glomerular filtration rate > NRG Serum or plasma glucose measurement (mass/volume) 92 mg/dL 70-105 Serum or plasma calcium measurement (mass/volume) 8.9 mg/dL 8.5-10.1 Serum or plasma total bilirubin measurement (mass/volu me) 0.7 mg/dL 0.1-1.0 Serum or plasma alkaline phosphatase timothy surement (enzymatic activity/volume) 50 U/L 40-136 Serum or plasma aspartate aminotransfera se measurement (enzymatic activity/volume) 13 U/L 5-34 Serum or plasma alanine aminotransferase measurement (enzymatic activity/volume) 12 U/L 0-55 Serum or plasma protein measurement (mass/volume) 6.2 g/dL 6.4-8.2 Serum or plasma albumin measurement (mass/volume) 4.0 g/dL 3.2-4.5 Magnesium - 06/06/16 11:00 Magnesium 2.1 mg/dL 1.8-2.4 Serum or plasma troponin i.cardiac measu rement (mass/volume) - 06/06/16 11:00 Serum or plasma troponin i.cardiac measurement (mass/v olume) < ng/mL <0.30 THYROID STIMULATING HORMONE - 06/06/16 1 1:00 THYROID STIMULATING HORMONE 1.55 u[iU]/mL 0.35-4.94 Serum or plasma choriogonadotropin (preg parmjit test) detection - 03/01/19 06:46 Serum or plasma choriogonadotropin ( test) de tection NEGATIVE NEGATIVE Complete blood count (CBC) with automate d white blood cell (WBC) differential - 03/01/19 06:46 Blood leukocytes automated count (number/volume) 12.6 10*3/uL 4.3-11.0 Blood erythrocytes automated count (number/volume) 4.48 10*6/uL 4.35-5.85 Venous blood hemoglobin measurement (mass/volume) 14.2 g/dL 11.5-16.0 Blood hematocrit (volume fraction) 43 % 35-52 Automated erythrocyte mean corpuscular volume 97 [ foz_us] 80-99 Automated erythrocyte mean corpuscular h emoglobin (mass per erythrocyte) 32 pg 25-34 Automated erythrocyte mean corpuscular h emoglobin concentration measurement (mass/volume) 33 g/dL 32-36 Automated erythrocyte distribution width ratio 14. 1 % 10.0- 14.5 Automated blood platelet count (count/volume) 224 10*3/uL 130-400 Automated blood platelet mean volume measurement 10.4 [foz_us] 7.4-10.4 Automated blood neutrophils/100 leukocytes 79 % 42-75 Automated blood lymphocytes/100 leukocytes 11 % 12-44 Blood monocytes/100 leukocytes 8 % 0-12 Automated blood eosinophils/100 leukocytes 2 % 0-10 Automated blood basophils/100 leukocytes 0 % 0-10 Blood neutrophils automated count (number/volume) 10.0 10*3 1.8-7.8 Blood lymphocytes automated count (number/volume) 1.4 10*3 1.0-4.0 Blood monocytes automated count (number/volume) 1. 0 10*3 0.0-1.0 Automated eosinophil count 0.2 10*3/uL 0 .0-0.3 Automated blood basophil count (count/volume) 0.0 10*3/uL 0.0-0.1 Comprehensive metabolic panel - 03/01/19 06:46 Serum or plasma sodium measurement (moles/volume) 143 mmol/L 135-145 Serum or plasma potassium measurement (moles/volume) 3.5 mmol/L 3.6-5.0 Serum or plasma chloride measurement (moles/volume) 107 mmol/L 98-107 Carbon dioxide 26 mmol/L 21-32 Serum or plasma anion gap determination (moles/volume) 10 mmol/L 5-14 Serum or plasma urea nitrogen measurement (mass/volume ) 14 mg/dL 7-18 Serum or plasma creatinine measurement (mass/volume) 0.64 mg/dL 0.60-1.30 Serum or plasma urea nitrogen/creatinine mass ratio 22 NRG Serum or plasma creatinine measurement w ith calculation of estimated glomerular filtration rate > NRG Serum or plasma glucose measurement (mass/volume) 98 mg/dL 70-105 Serum or plasma calcium measurement (mass/volume) 9.8 mg/dL 8.5-10.1 Serum or plasma total bilirubin measurement (mass/volu me) 0.6 mg/dL 0.1-1.0 Serum or plasma alkaline phosphatase timothy surement (enzymatic activity/volume) 54 U/L 40-136 Serum or plasma aspartate aminotransfera se measurement (enzymatic activity/volume) 12 U/L 5-34 Serum or plasma alanine aminotransferase measurement (enzymatic activity/volume) 11 U/L 0-55 Serum or plasma protein measurement (mass/volume) 7.0 g/dL 6.4-8.2 Serum or plasma albumin measurement (mass/volume) 4.3 g/dL 3.2-4.5 CALCIUM CORRECTED 9.6 mg/dL 8.5-10.1 Serum or plasma C reactive protein measu rement (mass/volume) - 03/01/19 06:46 Serum or plasma C reactive protein measurement (mass/v olume) 0.92 mg/dL 0.00-0.50 Blood lactic acid measurement (moles/vol ume) - 03/01/19 06:46 Blood lactic acid measurement (moles/volume) 1.15 mmol/L 0.50-2.00 PT panel in platelet poor plasma by coag ulation assay - 03/01/19 06:48 Prothrombin time (PT) in platelet poor plasma by coagu lation assay 13.4 s 12.2-14.7 INR in platelet poor plasma or blood by coagulation as say 1.0 0.8-1.4 Activated partial thromboplastin time (a PTT) in platelet poor plasma bycoagulation assay - 03/01/19 06:48 Activated partial thromboplastin time (a PTT) in platelet poor plasma bycoagulation assay 34 s 24-35 Sputum Gram stain - 03/01/19 06:48 Sputum Gram stain No bacteria seen NRG Bacterial blood culture - 03/01/19 06:48 Bacterial blood culture NG NRG Bacterial sputum culture - 03/01/19 06:4 8 QUANTITY OF GROWTH . NRG Bacterial sputum culture USUAL RESP NRG Influenza virus A and B antigen detectio n - 03/01/19 07:20 FLU RESULT NEGATIVE FOR INFLUENZA A AND B ANTIGENS BY IA NRG Complete urinalysis with reflex to cultu re - 03/01/19 07:45 Urine color determination YELLOW NRG Urine clarity determination CLEAR NR G Urine pH measurement by test strip 7 5-9 Specific gravity of urine by test strip 1.010 1.016-1.022 Urine protein assay by test strip, semi-quantitative NEGATIVE NEGATIVE Urine glucose detection by automated test strip NE GATIVE NEGATIVE Erythrocytes detection in urine sediment by light micr oscopy NEGATIVE NEGATIVE Urine ketones detection by automated test strip NE GATIVE NEGATIVE Urine nitrite detection by test strip NEGATIVE NEGATIVE Urine total bilirubin detection by test strip NEGA TIVE NEGATIVE Urine urobilinogen measurement by automated test strip (mass/volume) NORMAL NORMAL Urine leukocyte esterase detection by dipstick NEG ATIVE NEGATIVE Automated urine sediment erythrocyte cou nt by microscopy (number/high power field) NONE NRG Automated urine sediment leukocyte count by microscopy (number/high power field) NONE NRG Bacteria detection in urine sediment by light microsco py NEGATIVE NRG Squamous epithelial cells detection in u rine sediment by light microscopy RARE NRG Crystals detection in urine sediment by light microsco py NONE NRG Casts detection in urine sediment by light microscopy NONE NRG Mucus detection in urine sediment by light microscopy NEGATIVE NRG Complete urinalysis with reflex to culture CULTURE PENDING NRG Bacterial urine culture - 03/01/19 07:45 Bacterial urine culture NG NRG Bacterial blood culture - 03/01/19 08:45 Bacterial blood culture NG NRG Arterial blood gas measurement - 9 15:14 Blood pCO2 35 mm[Hg] 35-45 Blood pO2 69 mm[Hg] 79-93 Arterial blood bicarbonate measurement (moles/volume) 24 mmol/L 23-27 Arterial blood base excess by calculation 0.2 mmol /L -2.5-2.5 Arterial blood oxygen saturation measurement 96 % 94-100 * Inhaled oxygen flow rate 21% NRG Arterial blood pH measurement with patient temperature correction 7.45 7.37-7.43 Arterial blood carbon dioxide, total measurement (mole s/volume) 24.9 mmol/L 21.0-31.0 Body site RIGHT RADIAL NRG Assessment of wrist artery patency prior to arterial p uncture POSITIVE NRG Setting of ventilation mode NO NR G Measurement of body temperature 97.6 NRG Complete blood count (CBC) with automate d white blood cell (WBC) differential - 03/02/19 05:51 Blood leukocytes automated count (number/volume) 12.3 10*3/uL 4.3-11.0 Blood erythrocytes automated count (number/volume) 3.83 10*6/uL 4.35-5.85 Venous blood hemoglobin measurement (mass/volume) 12.2 g/dL 11.5-16.0 Blood hematocrit (volume fraction) 37 % 35-52 Automated erythrocyte mean corpuscular volume 97 [ foz_us] 80-99 Automated erythrocyte mean corpuscular h emoglobin (mass per erythrocyte) 32 pg 25-34 Automated erythrocyte mean corpuscular h emoglobin concentration measurement (mass/volume) 33 g/dL 32-36 Automated erythrocyte distribution width ratio 13. 8 % 10.0- 14.5 Automated blood platelet count (count/volume) 209 10*3/uL 130-400 Automated blood platelet mean volume measurement 11.5 [foz_us] 7.4-10.4 Automated blood neutrophils/100 leukocytes 90 % 42-75 Automated blood lymphocytes/100 leukocytes 7 % 12-44 Blood monocytes/100 leukocytes 3 % 0-12 Automated blood eosinophils/100 leukocytes 0 % 0-10 Automated blood basophils/100 leukocytes 0 % 0-10 Blood neutrophils automated count (number/volume) 11.1 10*3 1.8-7.8 Blood lymphocytes automated count (number/volume) 0.9 10*3 1.0-4.0 Blood monocytes automated count (number/volume) 0. 3 10*3 0.0-1.0 Automated eosinophil count 0.0 10*3/uL 0 .0-0.3 Automated blood basophil count (count/volume) 0.0 10*3/uL 0.0-0.1 Whole blood basic metabolic panel - 11/13 05:51 Serum or plasma sodium measurement (moles/volume) 143 mmol/L 135-145 Serum or plasma potassium measurement (moles/volume) 3.5 mmol/L 3.6-5.0 Serum or plasma chloride measurement (moles/volume) 111 mmol/L 98-107 Carbon dioxide 23 mmol/L 21-32 Serum or plasma anion gap determination (moles/volume) 9 mmol/L 5-14 Serum or plasma urea nitrogen measurement (mass/volume ) 11 mg/dL 7-18 Serum or plasma creatinine measurement (mass/volume) 0.54 mg/dL 0.60-1.30 Serum or plasma urea nitrogen/creatinine mass ratio 20 NRG Serum or plasma creatinine measurement w ith calculation of estimated glomerular filtration rate > NRG Serum or plasma glucose measurement (mass/volume) 118 mg/dL 70-105 Serum or plasma calcium measurement (mass/volume) 8.4 mg/dL 8.5-10.1 Manual absolute plasma cell count - 11/13 05:51 Blood monocytes/100 leukocytes 4 % NRG Manual blood segmented neutrophils/100 leukocytes 84 % NRG Blood band neutrophils/100 leukocytes 5 % NRG Manual blood lymphocytes/100 leukocytes 7 % NRG Manual eosinophils/100 leukocytes in nose 0 % NRG Manual blood basophils/100 leukocytes 0 % NRG Blood erythrocyte morphology finding identification NORMAL NRG Whole blood basic metabolic panel - 12/14 05:20 Serum or plasma sodium measurement (moles/volume) 142 mmol/L 135-145 Serum or plasma potassium measurement (moles/volume) 3.6 mmol/L 3.6-5.0 Serum or plasma chloride measurement (moles/volume) 113 mmol/L 98-107 Carbon dioxide 21 mmol/L 21-32 Serum or plasma anion gap determination (moles/volume) 8 mmol/L 5-14 Serum or plasma urea nitrogen measurement (mass/volume ) 13 mg/dL 7-18 Serum or plasma creatinine measurement (mass/volume) 0.54 mg/dL 0.60-1.30 Serum or plasma urea nitrogen/creatinine mass ratio 24 NRG Serum or plasma creatinine measurement w ith calculation of estimated glomerular filtration rate > NRG Serum or plasma glucose measurement (mass/volume) 87 mg/dL 70-105 Serum or plasma calcium measurement (mass/volume) 8.0 mg/dL 8.5-10.1 Complete blood count (CBC) with automate d white blood cell (WBC) differential - 03/03/19 05:20 Blood leukocytes automated count (number/volume) 13.4 10*3/uL 4.3-11.0 Blood erythrocytes automated count (number/volume) 3.71 10*6/uL 4.35-5.85 Venous blood hemoglobin measurement (mass/volume) 11.8 g/dL 11.5-16.0 Blood hematocrit (volume fraction) 37 % 35-52 Automated erythrocyte mean corpuscular volume 99 [ foz_us] 80-99 Automated erythrocyte mean corpuscular h emoglobin (mass per erythrocyte) 32 pg 25-34 Automated erythrocyte mean corpuscular h emoglobin concentration measurement (mass/volume) 32 g/dL 32-36 Automated erythrocyte distribution width ratio 14. 3 % 10.0- 14.5 Automated blood platelet count (count/volume) 209 10*3/uL 130-400 Automated blood platelet mean volume measurement 10.7 [foz_us] 7.4-10.4 Automated blood neutrophils/100 leukocytes 76 % 42-75 Automated blood lymphocytes/100 leukocytes 18 % 12-44 Blood monocytes/100 leukocytes 5 % 0-12 Automated blood eosinophils/100 leukocytes 0 % 0-10 Automated blood basophils/100 leukocytes 0 % 0-10 Blood neutrophils automated count (number/volume) 10.2 10*3 1.8-7.8 Blood lymphocytes automated count (number/volume) 2.5 10*3 1.0-4.0 Blood monocytes automated count (number/volume) 0. 7 10*3 0.0-1.0 Automated eosinophil count 0.0 10*3/uL 0 .0-0.3 Automated blood basophil count (count/volume) 0.0 10*3/uL 0.0-0.1 CULTURE, THROAT - 05/28/19 10:56 CULTURE, THROAT SEE NOTE NRG Sputum Gram stain - 06/29/19 08:20 Sputum Gram stain NO BACTERIA SEEN NRG Bacteria identification in bronchial spe cimen by aerobe culture - 06/29/19 08:20 QUANTITY OF GROWTH . NRG Bacteria identification in bronchial specimen by aerob e culture USUAL RESP NRG FTX;REPORTABLE 1,000 CFU/ML NRG CALL POSITIVES (F1 HELP) SUSCEPTIBILITY REPO RTED 1--20, 1535 NRG PBP2 METHICILLIN SENSITIVE STAPH AUREUS NRG Mycobacterium species detection by organ ism specific culture - 06/29/19 08:20 Dirithromycin susceptibility test by dis k diffusion - 06/29/19 08:20 Oxacillin susceptibility test by minimum inhibitory co ncentration 1 NRG Clindamycin susceptibility test by minimum inhibitory concentration <= NRG Erythromycin susceptibility test by minimum inhibitory concentration <= NRG Trimethoprim/sulfamethoxazole susceptibi lity test by minimum inhibitoryconcentration <= NRG Vancomycin susceptibility test by minimum inhibitory c oncentration 1 NRG Levofloxacin susceptibility test by minimum inhibitory concentration <= NRG Rifampin susceptibility test by minimum inhibitory con centration <= NRG Cefazolin susceptibility test by minimum inhibitory co ncentration <= NRG Linezolid susceptibility test by minimum inhibitory co ncentration 2 NRG Penicillin G susceptibility test by minimum inhibitory concentration > NRG Moxifloxacin susceptibility test by minimum inhibitory concentration <= NRG Minocycline susc MANJU <= NRG Fungus culture - 06/29/19 08:20 Sputum Gram stain - 06/29/19 09:20 Sputum Gram stain NO BACTERIA SEEN NRG Bacteria identification in bronchial spe cimen by aerobe culture - 06/29/19 09:20 Bacteria identification in bronchial specimen by aerob e culture NG NRG Mycobacterium species detection by organ ism specific culture - 06/29/19 09:20 Fungus culture - 06/29/19 09:20 Complete blood count (CBC) with automate d white blood cell (WBC) differential - 07/10/19 18:47 Blood leukocytes automated count (number/volume) 8.6 10*3/uL 4.3-11.0 Blood erythrocytes automated count (number/volume) 4.43 10*6/uL 4.35-5.85 Venous blood hemoglobin measurement (mass/volume) 14.2 g/dL 11.5-16.0 Blood hematocrit (volume fraction) 42 % 35-52 Automated erythrocyte mean corpuscular volume 95 [ foz_us] 80-99 Automated erythrocyte mean corpuscular h emoglobin (mass per erythrocyte) 32 pg 25-34 Automated erythrocyte mean corpuscular h emoglobin concentration measurement (mass/volume) 34 g/dL 32-36 Automated erythrocyte distribution width ratio 13. 1 % 10.0- 14.5 Automated blood platelet count (count/volume) 249 10*3/uL 130-400 Automated blood platelet mean volume measurement 9.8 [foz_us] 7.4-10.4 Automated blood neutrophils/100 leukocytes 60 % 42-75 Automated blood lymphocytes/100 leukocytes 30 % 12-44 Blood monocytes/100 leukocytes 6 % 0-12 Automated blood eosinophils/100 leukocytes 4 % 0-10 Automated blood basophils/100 leukocytes 0 % 0-10 Blood neutrophils automated count (number/volume) 5.2 10*3 1.8-7.8 Blood lymphocytes automated count (number/volume) 2.6 10*3 1.0-4.0 Blood monocytes automated count (number/volume) 0. 5 10*3 0.0-1.0 Automated eosinophil count 0.3 10*3/uL 0 .0-0.3 Automated blood basophil count (count/volume) 0.0 10*3/uL 0.0-0.1 Comprehensive metabolic panel - 07/10/19 18:47 Serum or plasma sodium measurement (moles/volume) 141 mmol/L 135-145 Serum or plasma potassium measurement (moles/volume) 4.2 mmol/L 3.6-5.0 Serum or plasma chloride measurement (moles/volume) 109 mmol/L 98-107 Carbon dioxide 23 mmol/L 21-32 Serum or plasma anion gap determination (moles/volume) 9 mmol/L 5-14 Serum or plasma urea nitrogen measurement (mass/volume ) 14 mg/dL 7-18 Serum or plasma creatinine measurement (mass/volume) 0.81 mg/dL 0.60-1.30 Serum or plasma urea nitrogen/creatinine mass ratio 17 NRG Serum or plasma creatinine measurement w ith calculation of estimated glomerular filtration rate > NRG Serum or plasma glucose measurement (mass/volume) 96 mg/dL 70-105 Serum or plasma calcium measurement (mass/volume) 9.3 mg/dL 8.5-10.1 Serum or plasma total bilirubin measurement (mass/volu me) 0.3 mg/dL 0.1-1.0 Serum or plasma alkaline phosphatase timothy surement (enzymatic activity/volume) 53 U/L 40-136 Serum or plasma aspartate aminotransfera se measurement (enzymatic activity/volume) 10 U/L 5-34 Serum or plasma alanine aminotransferase measurement (enzymatic activity/volume) 8 U/L 0-55 Serum or plasma protein measurement (mass/volume) 7.2 g/dL 6.4-8.2 Serum or plasma albumin measurement (mass/volume) 4.3 g/dL 3.2-4.5 CALCIUM CORRECTED 9.1 mg/dL 8.5-10.1 Serum or plasma C reactive protein measu rement (mass/volume) - 07/10/19 18:47 Serum or plasma C reactive protein measurement (mass/v olume) 0.21 mg/dL 0.00-0.50 Influenza virus A and B antigen detectio n - 07/10/19 18:47 FLU RESULT NEGATIVE FOR INFLUENZA A AND B ANTIGENS BY IA NRG Complete urinalysis with reflex to cultu re - 07/27/19 09:15 Urine color determination YELLOW NRG Urine clarity determination CLEAR NR G Urine pH measurement by test strip 7.0 5-9 Specific gravity of urine by test strip 1.010 1.016-1.022 Urine protein assay by test strip, semi-quantitative NEGATIVE NEGATIVE Urine glucose detection by automated test strip NE GATIVE NEGATIVE Erythrocytes detection in urine sediment by light micr oscopy NEGATIVE NEGATIVE Urine ketones detection by automated test strip NE GATIVE NEGATIVE Urine nitrite detection by test strip NEGATIVE NEGATIVE Urine total bilirubin detection by test strip NEGA TIVE NEGATIVE Urine urobilinogen measurement by automated test strip (mass/volume) 0.2 mg/dL < = 1.0 Urine leukocyte esterase detection by dipstick NEG ATIVE NEGATIVE Automated urine sediment erythrocyte cou nt by microscopy (number/high power field) NONE NRG Automated urine sediment leukocyte count by microscopy (number/high power field) NONE NRG Bacteria detection in urine sediment by light microsco py NEGATIVE NRG Squamous epithelial cells detection in u rine sediment by light microscopy RARE NRG Crystals detection in urine sediment by light microsco py NONE NRG Casts detection in urine sediment by light microscopy NONE NRG Mucus detection in urine sediment by light microscopy NEGATIVE NRG Complete urinalysis with reflex to culture NO NRG Urine drug screening test - 07/27/19 09: 15 Urine phencyclidine detection by screening method NEGATIVE NEGATIVE Urine benzodiazepines detection by screening method NEGATIVE NEGATIVE Urine cocaine detection NEGATIVE NEGATI VE Urine amphetamines detection by screening method N EGATIVE NEGATIVE Urine methamphetamine detection by screening method NEGATIVE NEGATIVE Urine cannabinoids detection by screening method N EGATIVE NEGATIVE Urine opiates detection by screening method NEGATI VE NEGATIVE Urine barbiturates detection NEGATIVE N EGATIVE Screening urine tricyclic antidepressants detection NEGATIVE NEGATIVE Urine methadone detection by screening method NEGA TIVE NEGATIVE Urine oxycodone detection NEGATIVE NEGA TIVE Urine propoxyphene detection NEGATIVE N EGATIVE Complete blood count (CBC) with automate d white blood cell (WBC) differential - 07/27/19 09:33 Blood leukocytes automated count (number/volume) 10.8 10*3/uL 4.3-11.0 Blood erythrocytes automated count (number/volume) 4.52 10*6/uL 4.35-5.85 Venous blood hemoglobin measurement (mass/volume) 14.5 g/dL 11.5-16.0 Blood hematocrit (volume fraction) 43 % 35-52 Automated erythrocyte mean corpuscular volume 94 [ foz_us] 80-99 Automated erythrocyte mean corpuscular h emoglobin (mass per erythrocyte) 32 pg 25-34 Automated erythrocyte mean corpuscular h emoglobin concentration measurement (mass/volume) 34 g/dL 32-36 Automated erythrocyte distribution width ratio 13. 3 % 10.0- 14.5 Automated blood platelet count (count/volume) 255 10*3/uL 130-400 Automated blood platelet mean volume measurement 9.5 [foz_us] 7.4-10.4 Automated blood neutrophils/100 leukocytes 77 % 42-75 Automated blood lymphocytes/100 leukocytes 17 % 12-44 Blood monocytes/100 leukocytes 4 % 0-12 Automated blood eosinophils/100 leukocytes 2 % 0-10 Automated blood basophils/100 leukocytes 0 % 0-10 Blood neutrophils automated count (number/volume) 8.2 10*3 1.8-7.8 Blood lymphocytes automated count (number/volume) 1.9 10*3 1.0-4.0 Blood monocytes automated count (number/volume) 0. 4 10*3 0.0-1.0 Automated eosinophil count 0.2 10*3/uL 0 .0-0.3 Automated blood basophil count (count/volume) 0.0 10*3/uL 0.0-0.1 PT panel in platelet poor plasma by coag ulation assay - 07/27/19 09:33 Prothrombin time (PT) in platelet poor plasma by coagu lation assay 13.8 s 12.2-14.7 INR in platelet poor plasma or blood by coagulation as say 1.0 0.8-1.4 Activated partial thromboplastin time (a PTT) in platelet poor plasma bycoagulation assay - 07/27/19 09:33 Activated partial thromboplastin time (a PTT) in platelet poor plasma bycoagulation assay 37 s 24-35 Fibrin D-dimer FEU measurement in platel et poor plasma (mass/volume) - 07/27/19 09:33 Fibrin D-dimer FEU measurement in platelet poor plasma (mass/volume) 0.38 ug/mL 0.00-0.49 Comprehensive metabolic panel - 07/27/19 09:33 Serum or plasma sodium measurement (moles/volume) 140 mmol/L 135-145 Serum or plasma potassium measurement (moles/volume) 4.3 mmol/L 3.6-5.0 Serum or plasma chloride measurement (moles/volume) 107 mmol/L 98-107 Carbon dioxide 20 mmol/L 21-32 Serum or plasma anion gap determination (moles/volume) 13 mmol/L 5-14 Serum or plasma urea nitrogen measurement (mass/volume ) 14 mg/dL 7-18 Serum or plasma creatinine measurement (mass/volume) 0.69 mg/dL 0.60-1.30 Serum or plasma urea nitrogen/creatinine mass ratio 20 NRG Serum or plasma creatinine measurement w ith calculation of estimated glomerular filtration rate > NRG Serum or plasma glucose measurement (mass/volume) 100 mg/dL 70-105 Serum or plasma calcium measurement (mass/volume) 10.1 mg/dL 8.5-10.1 Serum or plasma total bilirubin measurement (mass/volu me) 0.5 mg/dL 0.1-1.0 Serum or plasma alkaline phosphatase timothy surement (enzymatic activity/volume) 54 U/L 40-136 Serum or plasma aspartate aminotransfera se measurement (enzymatic activity/volume) 12 U/L 5-34 Serum or plasma alanine aminotransferase measurement (enzymatic activity/volume) 13 U/L 0-55 Serum or plasma protein measurement (mass/volume) 7.4 g/dL 6.4-8.2 Serum or plasma albumin measurement (mass/volume) 4.4 g/dL 3.2-4.5 CALCIUM CORRECTED 9.8 mg/dL 8.5-10.1 Magnesium - 07/27/19 09:33 Magnesium 1.8 mg/dL 1.6-2.4 Serum or plasma troponin i.cardiac measu rement (mass/volume) - 07/27/19 09:33 Serum or plasma troponin i.cardiac measurement (mass/v olume) < ng/mL <0.028 Myoglobin, serum - 07/27/19 09:33 Myoglobin, serum 14.7 ng/mL 10.0-92.0 Serum or plasma lithium measurement (mol es/volume) - 07/27/19 09:33 BNP PT < 10.0 <100.0 Serum or plasma troponin i.cardiac measu rement (mass/volume) - 07/27/19 12:29 Serum or plasma troponin i.cardiac measurement (mass/v olume) < ng/mL <0.028 CORTISOL, SERUM-AM - 08/04/19 08:39 CORTISOL, A.M. 17.9 mcg/dL NRG Thyroid Stimulating Hormone - 08/09/19 1 1:15 TSH 1.13 mIU/mL 0.32-5.00 Urinalysis - 08/09/19 11:30 Icotest N/A Negative Urine Volume Urine Volume Sufficient (10mL) Urine Yeast No Yeast present Urine-Appearance Clear Clear Urine-Bacteria Negative Urine-Bilirubin Negative Negative Urine-Blood Negative Negative Urine-Color Yellow Colorless-[place] ow Urine-Epithelial Cells RARE/HPF Urine-Glucose Negative Negative Urine-Ketones Trace Negative Urine-Leukocytes Negative Negative Urine-Nitrite Negative Negative Urine-Other Urine Saved if Culture Need ed (48hrs from time of collection) Urine-pH 7.5 5-8.5 Urine-Protein Negative Negative Urine-RBC Negative Urine-Specific Upson 1.020 1.000-1 .030 Urine-WBC Negative Urobilinogen 0.2 E.U./dL 0.2-1.0 Influenza - 08/09/19 11:51 Influenza NEGATIVE FOR A and B 0.00-0.0 0 Mycoplasma - 09/18/19 15:12 Mycoplasma Positive Negative Encounters ACCT No. Visit Date/Time Discharge Status Pt. Type Provider Facility Loc./Unit Complaint [id number] 09/18/2019 15:06:00 09/18/2019 23:59 :00 DIS Outpatient Sharmaine Zhong [id number] 09/18/2019 11:00:00 09/18/2019 23:59 :00 DIS Outpatient Trevin Sharmaine [id number] 08/09/2019 10:44:00 08/09/2019 12:40 :00 [facility] [id number] 05/28/2019 12:30:00 05/28/2019 23:59: 59 CLS Outpatient EDWIN BOLAÑOS, OPAL [facility] [id number] 08/04/2019 08:40:00 Document Registration [id number] 05/28/2019 12:30:00 Document Registration [id number] 08/28/2019 08:40:00 23:59:59 CLS Outpatient Fox AMEZQUITA MD [facility] CARD PALPITATIONS,PRECORDIAL PAIN,COPD [id number] 08/24/2019 07:42:00 23:59:59 CLS Outpatient Fox AMEZQUITA MD [facility] CARD PALPITATIONS,PRECORDIAL PAIN,COPD [id number] 07/27/2019 08:53:00 13:13:00 DIS Emergency VANDA SON MD [facility] ER TIRED [id number] 07/19/2019 10:32:00 23:59:59 CLS Outpatient YVES LINK APRN [facility] PULM COPD,DYSPNEA [id number] 07/10/2019 16:30:00 20:42:00 DIS Emergency MARCOS BOLAÑOS, FRANSISCO Marie [facility] ER BACTERIAL INFEC TION IN R LUNG/HEADACHE/DIZZINESS [id number] 06/29/2019 06:43:00 09:45:00 DIS Outpatient DL BELL DO [facility] ENDO COPD/DYSPNEA/ALLERGIC R HINITIS [id number] 06/23/2019 05:34:00 13:07:00 DIS Outpatient DL BELL DO [facility] PREOP BRONCHOSCOPY [id number] 06/16/2019 10:23:00 23:59:59 CLS Outpatient YVES LINK APRN [facility] RT ALLERGIC RHINIT IS, COUGH [id number] 04/04/2019 09:49:00 23:59:59 CLS Preadmit YVES LINK APRN [facility] RAD COUGH,COPD [id number] 03/01/2019 09:47:00 12:29:00 DIS Inpatient JUAN CARLOS BOLAÑOS, MAXWELL iFsher [facility] 4TH SEPSIS;PNEUMONIA;COPD E XAC [id number] 06/06/2016 10:17:00 016 12:50:00 DIS Emergency ADELAIDA BOLAÑOS, VANDA Gant [facility] ER HOT COLD FLASHES [id number] 09/27/2015 14:48:00 016 23:59:59 CLS Outpatient EDWIN BOLAÑOS, OPAL Booker [facility] CARD NEAR SYNCOPE [id number] 07/19/2015 09:02:00 016 12:15:00 DIS Emergency RENEE MAY MD [facility] ER DIZZINESS [id number] 04/03/2015 05:10:00 09:10:00 DIS Inpatient MILEY JAIMES DO [facility] LDRP PROM [id number] 03/12/2015 11:34:00 23:59:59 CLS Outpatient MILEY JAIMES DO [facility] SPINAL HEADACHE [id number] 03/07/2015 06:40:00 15:25:00 DIS Outpatient MILEY JAIMES DO [facility] CERVICAL INSUFFICIENCY [id number] 03/06/2015 15:33:00 23:59:59 CLS Outpatient MILEY JAIMES DO [facility] PREOP CERVICAL INSUFFICIENCY
[2019-09-24 20:18] LABS: BASOPHILS % (AUTO) 0 % (0-10); EOSINOPHILS # (AUTO) 0.3 10^3/uL (0.0-0.3); EOSINOPHILS % (AUTO) 3 % (0-10); HEMATOCRIT 40 % (35-52); HEMOGLOBIN 13.7 G/DL (11.5-16.0); LYMPHOCYTES # (AUTO) 3.1 X 10^3 (1.0-4.0); LYMPHOCYTES % (AUTO) 36 % (12-44); MEAN CORPUSCULAR HEMOGLOBIN 32 PG (25-34); MEAN CORPUSCULAR HGB CONC 34 G/DL (32-36); MEAN CORPUSCULAR VOLUME 94 FL (80-99); MEAN PLATELET VOLUME 9.6 FL (7.4-10.4); MONOCYTES # (AUTO) 0.5 X 10^3 (0.0-1.0); MONOCYTES % (AUTO) 5 % (0-12); NEUTROPHILS # (AUTO) 4.8 X 10^3 (1.8-7.8); NEUTROPHILS % (AUTO) 56 % (42-75); PLATELET COUNT 277 10^3/uL (130-400); RED CELL DISTRIBUTION WIDTH 12.8 % (10.0-14.5); WHITE BLOOD COUNT 8.7 10^3/uL (4.3-11.0)
[2019-09-24 20:30] LABS: ALANINE AMINOTRANSFERASE 9 U/L (0-55); ALBUMIN 4.1 GM/DL (3.2-4.5); ALKALINE PHOSPHATASE 50 U/L (40-136); BILIRUBIN,TOTAL 0.2 MG/DL (0.1-1.0); BUN/CREATININE RATIO 20; CALCIUM 9.1 MG/DL (8.5-10.1); CARBON DIOXIDE 22 MMOL/L (21-32); CHLORIDE 111 MMOL/L (98-107); CREATININE SERUM 0.65 MG/DL (0.60-1.30); GFR ESTIMATED > 60; GLUCOSE 95 MG/DL (70-105); MAGNESIUM 1.9 MG/DL (1.6-2.4); POTASSIUM 3.8 MMOL/L (3.6-5.0); SODIUM 143 MMOL/L (135-145); TOTAL PROTEIN 6.8 GM/DL (6.4-8.2)
[2019-09-24 20:37] LABS: PROTHROMBIN TIME PATIENT 13.9 SEC (12.2-14.7)
--- NOTE | 2019-09-24 20:50 | Diagnostic Imaging Report ---
EXAMINATION: Chest 1 view HISTORY: Palpitations. COMPARISON: Chest radiograph on 07/27/2019. FINDINGS: The lung volumes are normal. No focal consolidation is seen. No large pleural effusion or pneumothorax is seen. The cardiomediastinal silhouette is normal in size and contour. No acute osseous abnormality is seen. IMPRESSION: 1. No acute pleuroparenchymal process. Dictated by: Dictated on workstation # [id number]
--- NOTE | 2019-09-24 21:15 | ED Cardiac General ---
History of Present Illness General Chief Complaint: Cardiac/General Problems Stated Complaint: HEART PALPITATIONS Nursing Triage Note: pt wearing heart monitor states since August 28. patient states "palpitations" today with chest pain Source: patient Exam Limitations: no limitations History of Present Illness Date Seen by Provider: Sep 24, 2019 Time Seen by Provider: 20:53 Initial Comments Here with report of pain to the area of the left side of the chest just under the left breast. She states it feels like a palpitation and she's had 40 of them over the past few hours. She started capture this on her event monitor. She is feeling it currently but the monitor shows normal sinus rhythm. She is currently on doxycycline for mycoplasma infection. She states her diet has changed as well as her stool habits. This may be part of the issue. No breathing problems, nausea, vomiting, diaphoresis or other concerns. Timing/Duration: 1-3 hours, intermittent Severity: moderate Location: central Prior CP/Workup: echocardiography Modifying Factors: improves with rest NTG SL INSPECTOR SUBASSEMBLIES: No ASA po INSPECTOR SUBASSEMBLIES: No Associated Systoms: Chest Pain; No Fever/Chills, No Nausea/Vomiting, No Shortness of Air, No Weakness Allergies and Home Medications Allergies Coded Allergies: levofloxacin (Verified Allergy, Mild, Itching, 03/01/19) Penicillins (Verified Allergy, Unknown, 03/06/15) Sulfa (Sulfonamide Antibiotics) (Verified Allergy, Unknown, Hives, 07/10/19) Home Medications Albuterol Sulfate 1 Puff Puff, 2 PUFF IH Q4H PRN for SHORTNESS OF BREATH, (Reported) 1 PUFF = 90 MCG Ascorbic Acid/Ascorbate Sodium 250 Mg Tab.chew, 2 TAB.CHEW PO DAILY, (Reported) Benzonatate 100 Mg Capsule, 100 MG PO TID PRN for COUGH, (Reported) Fluticasone Propionate 16 Gm [place].susp, 2 SPRAYS NS DAILY, (Reported) Ibuprofen 200 Mg Tablet, 600 MG PO TID, (Reported) TAKES 3 (200MG) TABLETS Montelukast Sodium 10 Mg Tablet, 10 MG PO HS, (Reported) Multivit with Calcium,Iron,Min 1 Each Tablet, 1 TAB PO DAILY, (Reported) [place]-3 Fatty Acids 1,000 Mg Capsule, 1,000 MG PO HS, (Reported) Propranolol HCl 20 Mg Tablet, 10 MG PO QID, (Reported) TAKES 1/2 (20MG) TABLET Vitamin B Complex 1 Each Capsule, 1 CAP PO HS, (Reported) Patient Home Medication List Home Medication List Reviewed: Yes Review of Systems Review of Systems Constitutional: see HPI; No chills, No fever EENTM: No Symptoms Reported Respiratory: No Symptoms Reported Cardiovascular: See HPI, Chest Pain, Irregular Heart Rate; Denies Lightheadedness; Palpitations Gastrointestinal: See HPI; Denies Nausea, Denies Vomiting Genitourinary: No Symptoms Reported Musculoskeletal: no symptoms reported Skin: no symptoms reported Psychiatric/Neurological: No Symptoms Reported All Other Systems Reviewed Negative Unless Noted: Yes Past Vcciohy-Pjamwv-Pkixda Hx Past Med/Social Hx: Reviewed Nursing Past Med/Soc Hx Patient Social History Alcohol Use: Denies Use Recreational Drug Use: No Smoking Status: Current Everyday Smoker Type Used: Cigarettes 2nd Hand Smoke Exposure: Yes Recent Foreign Travel: No Contact w/Someone Who Travel: No Recent Infectious Disease Expo: No Recent Hopitalizations: No Physical Abuse: No Sexual Abuse: No Mistreated: No Immunizations Up To Date Tetanus Booster (TDap): Unknown PED Vaccines UTD: Yes Date of Pneumonia Vaccine: Mar 28, 2019 Date of Influenza Vaccine: Mar 28, 2019 Seasonal Allergies Seasonal Allergies: Yes Past Medical History Surgeries: Yes (D&C, FOOT (SCREWS), PART OF CERVIX REMOVED) Appendectomy, Section, Hysterectomy Respiratory: Yes (pt reports bacteria in lung) COPD Cardiac: Yes ("irregular heart beat" - patient ) Atrial Fibrillation, Irregular Heartbeat Neurological: No Reproductive Disorders: Yes (INCOMP. CERVIX) Female Reproductive Disorders: Denies HEALTH CARE LIAISON History: Hysterectomy Sexually Transmitted Disease: No HIV/AIDS: No Genitourinary: No Gastrointestinal: No Musculoskeletal: No Endocrine: No HEENT: No Loss of Vision: Bilateral Hearing Impairment: Denies Cancer: Yes Cervical Psychosocial: No Integumentary: No Blood Disorders: No Adverse Reaction/Blood Tranf: No Family Medical History Reviewed Nursing Family Hx Cancer of mouth Congenital heart disease 19 FATHER FH: asthma (mother's side) 19 MOTHER FH: brain cancer FH: heart disease (Mother and father's side) FH: ovarian cancer (Mother's side) Physical Exam Vital Signs Vital Signs - First Documented 09/24/19 20:04 Pulse 86 Resp 20 B/P (MAP) 127/76 (93) O2 Delivery Room Air Capillary Refill : NONE Height, Weight, BMI Height: 5'5.00" Weight: 128lbs. 6.0oz. [id number]; 20.00 BMI Method:Estimated General Appearance: No Apparent Distress, WD/WN HEENT: PERRL/EOMI, Pharynx Normal Neck: Non Tender, Supple Respiratory: Lungs Clear, Normal Breath Sounds Cardiovascular: Regular Rate, Rhythm, No Murmur Gastrointestinal: Non Tender Extremity: Normal Range of Motion, Non Tender Neurologic/Psychiatric: Alert, Oriented x3 Skin: Normal Color, Warm/Dry Progress/Results/Core Measures Results/Orders Lab Results Laboratory Tests Test 09/24/19 20:05 09/24/19 21:06 Range/Units White Blood Count 8.7 4.3-11.0 10^3/uL Red Blood Count 4.28 L 4.35-5.85 10^6/uL Hemoglobin 13.7 11.5-16.0 G/DL Hematocrit 40 35-52 % Mean Corpuscular Volume 94 80-99 FL Mean Corpuscular Hemoglobin 32 25-34 PG Mean Corpuscular Hemoglobin Concent 34 32-36 G/DL Red Cell Distribution Width 12.8 10.0-14.5 % Platelet Count 277 130-400 10^3/uL Mean Platelet Volume 9.6 7.4-10.4 FL Neutrophils (%) (Auto) 56 42-75 % Lymphocytes (%) (Auto) 36 12-44 % Monocytes (%) (Auto) 5 0-12 % Eosinophils (%) (Auto) 3 0-10 % Basophils (%) (Auto) 0 0-10 % Neutrophils # (Auto) 4.8 1.8-7.8 X 10^3 Lymphocytes # (Auto) 3.1 1.0-4.0 X 10^3 Monocytes # (Auto) 0.5 0.0-1.0 X 10^3 Eosinophils # (Auto) 0.3 0.0-0.3 10^3/uL Basophils # (Auto) 0.0 0.0-0.1 10^3/uL Prothrombin Time 13.9 12.2-14.7 SEC INR Comment 1.0 0.8-1.4 Activated Partial Thromboplast Time 36 H 24-35 SEC Sodium Level 143 135-145 MMOL/L Potassium Level 3.8 3.6-5.0 MMOL/L Chloride Level 111 H 98-107 MMOL/L Carbon Dioxide Level 22 21-32 MMOL/L Anion Gap 10 5-14 MMOL/L Blood Urea Nitrogen 13 7-18 MG/DL Creatinine 0.65 0.60-1.30 MG/DL Estimat Glomerular Filtration Rate > 60 BUN/Creatinine Ratio 20 Glucose Level 95 70-105 MG/DL Calcium Level 9.1 8.5-10.1 MG/DL Corrected Calcium 9.0 8.5-10.1 MG/DL Magnesium Level 1.9 1.6-2.4 MG/DL Total Bilirubin 0.2 0.1-1.0 MG/DL Aspartate Amino Transf (AST/SGOT) 13 5-34 U/L Alanine Aminotransferase (ALT/SGPT) 9 0-55 U/L Alkaline Phosphatase 50 40-136 U/L Myoglobin 12.7 10.0-92.0 NG/ML Troponin I < 0.028 <0.028 NG/ML Total Protein 6.8 6.4-8.2 GM/DL Albumin 4.1 3.2-4.5 GM/DL D-Dimer 0.30 0.00-0.49 UG/ML My Orders Orders - IFTIKHAR MCGEE MD Fibrin Degradation Products (09/24/19 21:09) Aspirin Chewable Tablet (Baby Aspirin Ch (09/24/19 21:16) Vital Signs/I&O 09/24/19 20:04 Pulse 86 Resp 20 B/P (MAP) 127/76 (93) O2 Delivery Room Air Blood Pressure Mean: 93 Progress Progress Note : Progress Note Seen and evaluated. IV, labs, EKG, ASA 324 mg by mouth and d-dimer ordered. I did discuss the case with Dr. Dyson. He has no concerns at this time given her presentation and current laboratory and an EKG findings. He will review the event monitor and they will call if there is concerns. Otherwise he will see her as scheduled. Patient comfort.. Monitor patient pending d-dimer. 07/30/05: D-dimer negative. Discharged home with return precautions. Patient verbalize understanding instructions and agreement with plan. Initial ECG Impression Date: Sep 24, 2019 Initial ECG Impression Time: 20:07 Initial ECG Rate: 83 Initial ECG Rhythm: Normal Sinus Initial ECG Comparisson: No Previous ECG Available Comment Sinus rhythm sinus rhythm with normal axis. No evidence of ST elevation [place]. Similar to previous of 07/27/19. Interpreted by me. Diagnostic Imaging Diagonstic Imaging: Xray Plain Films/CT/US/NM/MRI: chest Comments [facility], [place] NAME: ERIN KLEIN REC#: [id number] PT STATUS: REG ER : 1975 PHYSICIAN: FRANSISCO RODRÍGUEZ MD ADMIT DATE: 09/24/19/ER Signed Date of Exam:09/24/19 CHEST 1 VIEW, AP/PA ONLY EXAMINATION: Chest 1 view HISTORY: Palpitations. COMPARISON: Chest radiograph on 07/27/2019. FINDINGS: The lung volumes are normal. No focal consolidation is seen. No large pleural effusion or pneumothorax is seen. The cardiomediastinal silhouette is normal in size and contour. No acute osseous abnormality is seen. IMPRESSION: 1. No acute pleuroparenchymal process. Dictated by: Dictated on workstation # [id number] Dict: 09/24/192038 Trans: 09/24/192057 [facility] [id number] Interpreted by: ELI HENDERSON DO Electronically signed by: ELI HENDERSON DO 09/24/192057 Departure Impression Primary Impression: Palpitations Disposition: HOME, SELF-CARE Condition: Improved Departure-Patient Inst. Decision time for Depature: 21:28 Referrals: OPAL PINEDA MD (PCP/Family) Primary Care Physician Fox DYSON MD Patient Instructions: Palpitations (DC), Chest Pain (DC) Add. Discharge Instructions: All discharge instructions reviewed with patient and/or family. Voiced understanding. Take medications as previously prescribed. Call Dr. Dyson's office for appointment. Return for worse pain, fever, vomiting, weakness, breathing problems or other concerns as needed. IFTIKHAR MCGEE MD Sep 24, 2019 21:15
[2019-09-24] MEDS ORDERED: ASPIRIN 81 MG CHEW (CHILDREN'S ASA) PO STA (21:16)
[2019-09-24 22:12] VITALS: BP 151/47
== END 2019-09-24 22:12 | disposition home or self-care (01) ==
LOC: EDUNIT# 19:47 → ER 19:49
DX: R00.2 Palpitations (principal); Z88.0 Allergy status to penicillin; Z88.2 Allergy status to sulfonamides; F17.210 Nicotine dependence, cigarettes, uncomplicated; Z85.41 Personal history of malignant neoplasm of cervix uteri; J44.9 Chronic obstructive pulmonary disease, unspecified; I48.91 Unspecified atrial fibrillation
CPT/HCPCS: 36415; 71045; 80053; 83735; 83874; 84484; 85025; 85379; 85610; 85730; 93041

== ENCOUNTER → 2020-01-03 | Outpatient (CLI) | payer OTHER ==
[~2020-01-03] MED LIST changes: +ASCO250T55 PO; +HOLD METFORMIN - RECEIVED CONTRAST 20 ML VIAL IV SCH; +IOHEXOL 350 MG/ML 100 ML (OMNIPAQUE 350) VIAL IV ONE; +NS 100 ML (IVPB) BAG IV ONE; -[UNRECOGNIZED DRUG - CODE] PO
--- NOTE | 2020-01-03 09:02 | Diagnostic Imaging Report ---
PROCEDURE: CT chest with contrast only. TECHNIQUE: Multiple contiguous axial images were obtained through the chest after administration of intravenous contrast. Auto Exposure Controls were utilized during the CT exam to meet ALARA standards for radiation dose reduction. INDICATION: Follow-up right upper lobe pulmonary mass. CORRELATION: 06/16/2019 FINDINGS: Mildly prominent but non-pathologically enlarged bilateral hilar lymph nodes. The heart size is unremarkable. Thoracic aorta normal in contour. Lung dow are emphysematous. No consolidating infiltrate. Unchanged biapical pleural thickening. Likely minimal secretions within the trachea. There has been interval increase in size of a right upper lobe pulmonary mass currently measuring approximately 13 x 12 x 19 mm, Previously 8 x 7 x 14 mm. Spiculated margins are present. This interposed between the prominent adjacent vessels. Portions also extending along the bronchovascular structures towards the hilum. Minimal additional small wispy very small peripheral groundglass opacities are present. No effusion. The visualized portions of the upper abdomen are unremarkable. The visualized osseous structures demonstrate no acute findings. IMPRESSION: 1. Interval increase in size of a right upper lobe spiculated pulmonary mass. This finding is most concerning for primary lung neoplasm until proven otherwise. 2. Mildly prominent but currently nonpathologic enlarged bilateral hilar lymph nodes. 3. Consideration for PET/CT imaging would be recommended. Report was called to Sonya Smallwood APRN by manjit at 9:04AM. Dictated by: Dictated on workstation # [id number]
== END ==
LOC: RAD 07:57
PROVIDERS: ATTEND Nurse Practitioner Family
DX: J40 Bronchitis, not specified as acute or chronic (principal); J30.9 Allergic rhinitis, unspecified; R91.8 Other nonspecific abnormal finding of lung field; R59.1 Generalized enlarged lymph nodes
CPT/HCPCS: 71260

== ENCOUNTER → 2020-01-09 | Outpatient (CLI) | payer OTHER ==
[~2020-01-09] MED LIST changes: -HOLD METFORMIN - RECEIVED CONTRAST 20 ML VIAL IV SCH; -IOHEXOL 350 MG/ML 100 ML (OMNIPAQUE 350) VIAL IV ONE; -NS 100 ML (IVPB) BAG IV ONE
--- NOTE | 2020-01-09 12:36 | Diagnostic Imaging Report ---
INDICATION: Right upper lobe lung mass. TECHNIQUE: Serum blood glucose level at time of injection was 93 mg/dL. Patient was administered 14.4 mCi F-18 FDG intravenously in the right antecubital location and PET imaging was performed from the top of skull to mid thighs. Noncontrast CT was performed for attenuation correction and anatomic correlation. COMPARISON: Comparison is made with conventional CT chest from 01/03/2020. No prior PET studies available for comparison. FINDINGS: There is symmetric activity throughout the brain. Physiologic activity within the soft tissues of the neck is identified. There is a hypermetabolic mass in the right upper lobe corresponding to the spiculated density noted on recent CT. SUV max is approximately 5.7. No other pulmonary parenchymal hypermetabolism is seen. No abnormal metabolism within the rowena or mediastinum is identified. Physiologic activity within the gastrointestinal and genitourinary tracts is seen. No suspicious hypermetabolism is detected. IMPRESSION: Hypermetabolic right upper lobe mass corresponding with the spiculated density noted on conventional CT. Features are concerning for primary lung neoplasm. There are no findings to suggest metastatic disease. Dictated by: Dictated on workstation # [id number]
== END ==
LOC: RAD 08:05
PROVIDERS: ATTEND Nurse Practitioner Family
DX: R91.8 Other nonspecific abnormal finding of lung field (principal)
CPT/HCPCS: 78815; A9552

== ENCOUNTER 2020-01-11 09:58 | Outpatient (CLI) | payer OTHER ==
[2020-01-11] VITALS (42 sets, daily range): BP systolic 56–116; BP diastolic 45–87
[~2020-01-11] VITALS: Ht 165 cm; Wt 54.0 kg
[2020-01-11] MEDS ORDERED: NS IV 1000 ML 1,000 ML ONE (10:04)
[2020-01-11] MEDS ORDERED: NS IV 1000 ML 1,000 ML IV SCH (11:30)
[2020-01-11] MEDS ORDERED: LIDOCAINE 1% INJ 20 ML 20 ML VIAL ONE (11:40)
--- NOTE | 2020-01-11 12:00 | NUR ---
IV DC'D CATH INTACT, PROSPER D/I
--- NOTE | 2020-01-11 13:52 | Implantation of Loop Monitor ---
Implant of Loop Monitior PROCEDURE PHYSICIAN: Priscilla Dyson MD IMPLANTATION OF LOOP MONITOR REPORT DATE OF PROCEDURE: 01/11/20 PERFORMING PHYSICIAN: Dr. Christopher Dyson. INDICATION: Syncope PREOP DIAGNOSIS: Syncope POSTOP DIAGNOSIS: Syncope, s/p implantation of loop recorder. PROCEDURE DETAILS: The patient is a 44 female with history of recurrent syncope. Therefore implantable loop recorder was discussed and agreed with the patient. Informed consent was taken. All risks and complications were discussed at length. The patient was draped and prepped in the usual sterile fashion. Local anesthesia was lidocaine, which was given in the substernal area close to the 4th intercostal space. Loop monitor was implanted according to the protocol. Steri- Strips were placed at the end of the procedure. There were no complications and the patient tolerated the procedure well. ANESTHESIA: Local anesthesia with lidocaine. COMPLICATIONS: None CONTRAST/FLUOROSCOPY: None CONCLUSION: 1. Successful implantation of loop monitor for recurrent syncope. 2. No complication and the patient tolerated the procedure well. Priscilla Dyson MD, [facility] Cardiac Electrophysiology Fox DYSON MD Jan 11, 2020 13:52
--- NOTE | 2020-01-11 13:52 | Cardiology Tilt Table Test ---
Cardiology-Tilt Table Test Tilt Table Test Date 01/11/20 Baseline Vitals Vital Signs Date Time Temp Pulse Resp B/P (MAP) Pulse Ox O2 Delivery O2 Flow Rate FiO2 01/11/20 10:28 36.0 85 14 113/70 (84) 100 Room Air Vital Signs VS - Last 72 Hours, by Label 01/11/20 01/11/20 01/11/20 01/11/20 10:28 10:33 10:36 10:37 Temp 36.0 Pulse 85 80 86 105 Resp 14 14 B/P (MAP) 113/70 (84) 113/70 (84) 110/76 (87) 97/68 (78) Pulse Ox 100 98 99 99 O2 Delivery Room Air Room Air Room Air Room Air 01/11/20 01/11/20 01/11/20 01/11/20 10:38 10:39 10:40 10:42 Pulse 98 98 111 103 B/P (MAP) 95/66 (76) 94/64 (74) 87/62 (70) 83/69 (74) Pulse Ox 99 99 98 98 O2 Delivery Room Air Room Air Room Air Room Air 01/11/20 01/11/20 01/11/20 01/11/20 10:43 10:44 10:45 10:46 Pulse 112 105 100 114 B/P (MAP) 56/67 (63) 90/51 (64) 93/57 (69) 83/68 (73) Pulse Ox 98 97 95 97 O2 Delivery Room Air Room Air Room Air Room Air 01/11/20 01/11/20 01/11/20 01/11/20 10:47 10:48 10:49 10:50 Pulse 107 109 112 112 B/P (MAP) 95/66 (76) 91/68 (76) 92/59 (70) Pulse Ox 96 96 95 96 O2 Delivery Room Air Room Air Room Air Room Air 01/11/20 01/11/20 01/11/20 01/11/20 10:51 10:52 10:53 10:54 Pulse 105 109 118 86 B/P (MAP) 95/62 (73) 92/64 (73) 97/74 (82) Pulse Ox 95 95 95 96 O2 Delivery Room Air Room Air Room Air Room Air 01/11/20 01/11/20 01/11/20 01/11/20 10:55 10:56 10:57 10:59 Pulse 112 104 108 108 B/P (MAP) 96/57 (70) 100/87 (91) 99/82 (88) 86/61 (69) Pulse Ox 97 95 96 96 O2 Delivery Room Air Room Air Room Air Room Air 01/11/20 01/11/20 01/11/20 01/11/20 11:00 11:01 11:02 11:03 Pulse 111 118 112 103 B/P (MAP) 101/70 (80) 84/69 (74) 94/55 (68) Pulse Ox 96 95 95 95 O2 Delivery Room Air Room Air Room Air Room Air 01/11/20 01/11/20 01/11/20 01/11/20 11:04 11:05 11:06 11:07 Pulse 96 96 113 106 B/P (MAP) 82/61 (68) 82/62 (69) 116/53 (74) 91/53 (66) Pulse Ox 95 96 96 96 O2 Delivery Room Air Room Air Room Air Room Air 01/11/20 01/11/20 01/11/20 01/11/20 11:08 11:09 11:11 11:12 Pulse 114 110 112 116 B/P (MAP) 79/45 (56) 85/60 (68) Pulse Ox 96 96 97 95 O2 Delivery Room Air Room Air Room Air Room Air 01/11/20 01/11/20 01/11/20 01/11/20 11:13 11:14 11:15 11:16 Pulse 112 114 102 105 B/P (MAP) 91/66 (74) 90/71 (77) 113/70 (84) Pulse Ox 96 96 O2 Delivery Room Air Room Air Room Air Room Air 01/11/20 01/11/20 01/11/20 01/11/20 11:18 11:19 11:20 11:21 Pulse 112 112 114 121 B/P (MAP) 105/65 (78) 102/74 (83) 107/70 (82) Pulse Ox 95 97 96 97 O2 Delivery Room Air Room Air Room Air Room Air 01/11/20 01/11/20 01/11/20 01/11/20 11:22 11:23 11:24 11:25 Pulse 123 104 105 95 B/P (MAP) 97/60 (72) 111/60 (77) 98/64 (75) 95/63 (74) Pulse Ox 99 99 99 99 O2 Delivery Room Air Room Air Room Air Room Air 01/11/20 11:26 Pulse 95 B/P (MAP) 95/66 (76) Pulse Ox 99 O2 Delivery Room Air Patient was tilted to 75 degrees for [10] minutes, then returned to supine position, given [2] sublingual nitroglycerin tablets, then tilted again to 75 degrees for [15] minutes. During test, patient was: symptomatic (patient started feeling sick, nauseated and altered speech. However no alexa syncope) In Conclusion;: Positive Tilt Table Test Lowest blood pressure of 79/45 mmHg. Heart rate went up to 123 bpm with symptoms of feeling sick, nauseated and altered speech. No alexa syncope. Generous hydration is recommended. Fox AMEZQUITA MD Jan 11, 2020 13:52
== END 2020-01-11 12:30 | disposition home or self-care (01) ==
LOC: CATH 09:58
PROVIDERS: ATTEND Internal Medicine Interventional Cardiology
DX: R55 Syncope and collapse (principal)
CPT/HCPCS: 33285; 93660; C1764

== ENCOUNTER → 2020-01-26 | Outpatient (CLI) | payer OTHER ==
[~2020-01-26] MED LIST changes: +RT-ALBUTEROL SULF 2.5 MG/3 ML PRE-MIX VIAL INH ONE
== END ==
LOC: RT 10:30
PROVIDERS: ATTEND Nurse Practitioner Family
DX: J45.909 Unspecified asthma, uncomplicated (principal); R91.8 Other nonspecific abnormal finding of lung field; F17.200 Nicotine dependence, unspecified, uncomplicated
CPT/HCPCS: 94060; 94726; 94729

== ENCOUNTER → 2020-09-10 | Outpatient (CLI) | payer MEDICAID ==
[~2020-09-10] MED LIST changes: -MONT10TA26 PO; +MONT10TA32 PO; -RT-ALBUTEROL SULF 2.5 MG/3 ML PRE-MIX VIAL INH ONE
== END ==
LOC: CARD 10:45
PROVIDERS: ATTEND Internal Medicine Cardiovascular Disease
DX: R06.09 Other forms of dyspnea (principal)
CPT/HCPCS: 93306

== ENCOUNTER 2021-03-10 14:29 | Outpatient (RCR) | payer MEDICAID ==
[2021-03-10 14:41] LABS: BASOPHILS # (AUTO) 0.1 10^3/uL (0.0-0.1); BASOPHILS % (AUTO) 1 % (0-10); EOSINOPHILS # (AUTO) 0.3 10^3/uL (0.0-0.3); EOSINOPHILS % (AUTO) 3 % (0-10); HEMATOCRIT 39 % (35-52); HEMOGLOBIN 12.8 g/dL (11.5-16.0); LYMPHOCYTES # (AUTO) 2.2 X 10^3 (1.0-4.0); LYMPHOCYTES % (AUTO) 25 % (12-44); MEAN CORPUSCULAR HEMOGLOBIN 31 pg (25-34); MEAN CORPUSCULAR HGB CONC 33 g/dL (32-36); MEAN CORPUSCULAR VOLUME 97 fL (80-99); MEAN PLATELET VOLUME 9.5 fL (9.0-12.2); MONOCYTES # (AUTO) 0.4 X 10^3 (0.0-1.0); MONOCYTES % (AUTO) 4 % (0-12); NEUTROPHILS # (AUTO) 5.8 X 10^3 (1.8-7.8); NEUTROPHILS % (AUTO) 67 % (42-75); PLATELET COUNT 245 10^3/uL (130-400); WHITE BLOOD COUNT 8.7 10^3/uL (4.3-11.0)
[2021-03-10 14:57] LABS: ALBUMIN 3.9 GM/DL (3.2-4.5); BILIRUBIN,TOTAL 0.3 MG/DL (0.1-1.0); CREATININE SERUM 0.71 MG/DL (0.60-1.30); POTASSIUM 3.6 MMOL/L (3.6-5.0); TOTAL PROTEIN 6.4 GM/DL (6.4-8.2)
== END 2021-03-23 | disposition home or self-care (01) ==
LOC: ONC 14:29
PROVIDERS: ATTEND Internal Medicine Hematology & Oncology
DX: C34.90 Malignant neoplasm of unspecified part of unspecified bronchus or lung (principal); J44.9 Chronic obstructive pulmonary disease, unspecified
CPT/HCPCS: 80053; 85025; 99213; 99214

== ENCOUNTER → 2021-03-25 | Outpatient (CLI) | payer MEDICAID ==
[~2021-03-25] MED LIST changes: +CATHETER FLUSH 10 ML SYR IV PRN; +HOLD METFORMIN - RECEIVED CONTRAST 20 ML VIAL IV SCH; +IOHEXOL 350 MG/ML 100 ML (OMNIPAQUE 350) VIAL IV ONE; +NS 100 ML (IVPB) BAG IV ONE
--- NOTE | 2021-03-25 10:52 | Diagnostic Imaging Report ---
EXAMINATION: CT chest with contrast, CT abdomen with and without contrast. TECHNIQUE: Precontrast acquisitions were acquired through the abdomen. Multiple contiguous axial images were obtained through the chest and abdomen after administration of intravenous contrast. All CT scans use one or more of the following dose optimizing techniques: automated exposure control, MA and/or KvP adjustment based on a patient size and exam type, or iterative reconstruction. HISTORY: Lung cancer COMPARISON: 01/03/2020 FINDINGS: There is no edema or pneumonia. No pleural effusion. No pneumothorax. No suspicious nodules. There has been right upper lobectomy. There is scarring in the right apex. There is no axillary or supraclavicular lymphadenopathy. There is no mediastinal lymphadenopathy. Heart size is normal. There are no coronary artery calcifications. No pericardial effusion. Aorta is normal in caliber. The liver is normal without focal lesion. There is no biliary ductal dilation. Gallbladder is not seen .Pancreas is normal. Spleen is normal. Adrenal glands are normal. The kidneys are normal. There is no hydronephrosis. Visualized bowel is normal in caliber without obstruction or inflammation. No free fluid or air. No abdominal lymphadenopathy. Aorta is normal in caliber without aneurysm. There are no suspicious osseus lesions. There has been partial resection of the right 7th rib. IMPRESSION: 1. Postsurgical changes of right upper lobectomy without local recurrence or metastatic disease seen in the chest or abdomen. Dictated by: Dictated on workstation # [id number]
== END ==
LOC: RAD 09:15
PROVIDERS: ATTEND Internal Medicine Hematology & Oncology
DX: C34.91 Malignant neoplasm of unspecified part of right bronchus or lung (principal); Z90.2 Acquired absence of lung [part of]
CPT/HCPCS: 71260; 74170

== ENCOUNTER 2021-06-12 10:40 | Outpatient (RCR) | payer MEDICAID ==
[~2021-06-12 10:40] MED LIST changes: -CATHETER FLUSH 10 ML SYR IV PRN; -HOLD METFORMIN - RECEIVED CONTRAST 20 ML VIAL IV SCH; -IOHEXOL 350 MG/ML 100 ML (OMNIPAQUE 350) VIAL IV ONE; +MONT-40 PO; -MONT10TA32 PO; -NS 100 ML (IVPB) BAG IV ONE
[2021-06-12 10:48] LABS: BASOPHILS # (AUTO) 0.1 10^3/uL (0.0-0.1); BASOPHILS % (AUTO) 1 % (0-10); EOSINOPHILS # (AUTO) 0.3 10^3/uL (0.0-0.3); EOSINOPHILS % (AUTO) 4 % (0-10); HEMATOCRIT 46 % (35-52); HEMOGLOBIN 15.5 g/dL (11.5-16.0); LYMPHOCYTES # (AUTO) 1.7 10^3/uL (1.0-4.0); LYMPHOCYTES % (AUTO) 18 % (12-44); MEAN CORPUSCULAR HEMOGLOBIN 33 pg (25-34); MEAN CORPUSCULAR HGB CONC 34 g/dL (32-36); MEAN CORPUSCULAR VOLUME 99 fL (80-99); MEAN PLATELET VOLUME 9.4 fL (9.0-12.2); MONOCYTES # (AUTO) 0.4 10^3/uL (0.0-1.0); MONOCYTES % (AUTO) 5 % (0-12); NEUTROPHILS # (AUTO) 6.7 10^3/uL (1.8-7.8); NEUTROPHILS % (AUTO) 73 % (42-75); PLATELET COUNT 287 10^3/uL (130-400); WHITE BLOOD COUNT 9.3 10^3/uL (4.3-11.0)
[2021-06-12 11:08] LABS: ALANINE AMINOTRANSFERASE 15 U/L (0-55); ALBUMIN 4.6 GM/DL (3.2-4.5); ALKALINE PHOSPHATASE 54 U/L (40-136); BILIRUBIN,TOTAL 0.5 MG/DL (0.1-1.0); BUN/CREATININE RATIO 24; CALCIUM 9.9 MG/DL (8.5-10.1); CARBON DIOXIDE 22 MMOL/L (21-32); CHLORIDE 106 MMOL/L (98-107); CREATININE SERUM 0.68 MG/DL (0.60-1.30); GFR ESTIMATED 93; GLUCOSE 94 MG/DL (70-105); POTASSIUM 3.9 MMOL/L (3.6-5.0); SODIUM 141 MMOL/L (135-145); TOTAL PROTEIN 7.8 GM/DL (6.4-8.2)
== END 2021-06-27 | disposition home or self-care (01) ==
LOC: ONC 10:40
PROVIDERS: ATTEND Internal Medicine Hematology & Oncology
DX: C34.11 Malignant neoplasm of upper lobe, right bronchus or lung (principal); J44.9 Chronic obstructive pulmonary disease, unspecified; F17.200 Nicotine dependence, unspecified, uncomplicated; Z90.2 Acquired absence of lung [part of]
CPT/HCPCS: 80053; 85025

== ENCOUNTER → 2021-09-08 | Outpatient (CLI) | payer MEDICAID ==
--- NOTE | 2021-09-08 13:18 | Diagnostic Imaging Report ---
PROCEDURE: CT chest without contrast. TECHNIQUE: Multiple contiguous axial images were obtained through the chest without the use of intravenous contrast. Auto Exposure Controls were utilized during the CT exam to meet ALARA standards for radiation dose reduction. INDICATION: Right pneumomediastinum, history of lung cancer. COMPARISON: March 25, 2021, January 03, 2020, and June 16, 2019. FINDINGS: No significant adenopathy within the chest. Postsurgical changes of a right upper lobectomy with associated postradiation changes again identified. Lobulated nodular pleural thickening is identified associated with the right lung near the right lung apex. This appears more prominent than the prior examinations. This is best seen on series 3 images 30 through 38. Biapical pleural parenchymal scarring is again seen. The left lung is clear of focal pulmonary opacity. Multiple small endoluminal filling defects are identified within the right lower lobe. Mild tree-in-bud nodularity is noted within the posterior aspect of the right lower lobe, which appears new from the prior exam. This is associated with a 1.3 cm pleural-based pulmonary nodule. No pneumothorax. The trachea is patent. The abdomen is not optimally evaluated without the use of intravenous contrast. The visualized portions of the adrenal glands are unremarkable. Postsurgical changes involving the chest wall are again seen. IMPRESSION: Developing pleural thickening versus nodularity within the right upper lung. This could simply relate to postradiation fibrosis and pneumonitis, though neoplasm needs to be excluded given interval change. Recommend PET/CT for further evaluation. New tree-in-bud nodularity within the right lower lobe with associated more discrete pulmonary nodule. This suggests a small airway/small vessel infectious versus inflammatory process. This region could be evaluated on the PET/CT as well, particularly the more discrete 1.3 cm pleural-based pulmonary nodule. Multiple endoluminal filling defects within the right lower lobe, related to mucus impaction. Postsurgical changes associated with the right lung and right chest. No significant pneumothorax. Additional findings as described above. Dictated by: Dictated on workstation # [id number]
== END ==
LOC: RAD 11:45
PROVIDERS: ATTEND Internal Medicine Critical Care Medicine
DX: J98.2 Interstitial emphysema (principal); F17.210 Nicotine dependence, cigarettes, uncomplicated; Z93.0 Tracheostomy status; Z90.2 Acquired absence of lung [part of]; Z85.118 Personal history of other malignant neoplasm of bronchus and lung
CPT/HCPCS: 71250

== ENCOUNTER → 2021-10-06 | Outpatient (CLI) | payer MEDICAID ==
--- NOTE | 2021-10-06 08:50 | Diagnostic Imaging Report ---
CLINICAL INDICATION: Patient with right upper quadrant pain. EXAM: Right upper quadrant ultrasound. COMPARISON: CT scan of the chest, abdomen, and pelvis with and without contrast dated 03/25/2021. FINDINGS: The pancreas has normal echogenicity and configuration. The abdominal aorta and IVC are unremarkable as visualized. The liver measures 15.7 cm. The liver demonstrates normal echogenicity and echotexture. The liver surface is smooth. There is no liver mass. The main portal vein demonstrates hepatopetal flow. There is no intrahepatic or extrahepatic ductal dilation. The common bile duct measures 6 mm which is within normal limits post cholecystectomy. The gallbladder is surgically absent, as noted on the prior study. The right kidney shows no mass or hydronephrosis. The right kidney measures 10.6 cm in craniocaudal dimension. There is no abdominal ascites. IMPRESSION: 1: There is no evidence of an acute abnormality involving this right upper quadrant ultrasound exam. 2: Cholecystectomy. Dictated by: Dictated on workstation # [id number]
--- NOTE | 2021-10-06 09:54 | Diagnostic Imaging Report ---
PROCEDURE: CT chest without contrast. TECHNIQUE: Multiple contiguous axial images were obtained through the chest without the use of intravenous contrast. Auto Exposure Controls were utilized during the CT exam to meet ALARA standards for radiation dose reduction. DATE: October 06, 2021. COMPARISON: CT chest September 08, 2021. Additional CT chest imaging dating back to June 16, 2019. INDICATION: 46-year-old female, evaluation for pneumonia. History of right upper lobe lobectomy. Shortness of breath. PROCEDURE: Axial noncontrasted CT images of the chest. Noncontrasted limits the evaluation of the mediastinum and vascular structures. FINDINGS: The patient is status post right upper lobectomy. There is consolidation in the upper margin of the peripheral aspect of the remaining right lung with unchanged appearance since September 08, 2021. There is mild pleural parenchymal scarring in the left lung apex. There are mild predominantly linear opacities in the right lower lobe compatible with mild atelectasis and/or scarring. There is no pneumothorax. There is no pleural effusion. There are foci of nonspecific opacification within right lower lobe bronchi which are unchanged. The heart is not enlarged. There is no pericardial effusion. There is a right superior mediastinal lymph node on axial image 21 measuring 1 cm in short axis. This is unchanged. There are subcentimeter short axis bilateral axillary lymph nodes. There are postoperative related changes of the right seventh rib. There is no aggressive bone lesion. Limited assessment of the imaged portions of the upper abdomen is unremarkable. IMPRESSION: 1. Status post right upper lobectomy with persistent and unchanged peripheral opacification in the remaining aspect of the right upper lobe which is an unchanged appearance since very recent comparison exam of September 08, 2021. Areas of nodularity do appear more prominent since March 25, 2021. Further evaluation with PET/CT is needed. Malignancy cannot be excluded. 2. 1 subcentimeter short axis right superior mediastinal left at is unchanged since the very recent comparison study although is increased in size since March 25, 2021 and previously measured 7 mm in short axis at that time. This does raise concern for possibility of metastatic sujatha disease. Attention to this area, PET/CT is recommended. 3. Redemonstrated facet nonspecific opacification within right lower lobe bronchi. Dictated by: Dictated on workstation # [id number]
== END ==
LOC: RAD 08:00
PROVIDERS: ATTEND Internal Medicine Critical Care Medicine
DX: R91.8 Other nonspecific abnormal finding of lung field (principal); R10.11 Right upper quadrant pain; R06.02 Shortness of breath; Z90.2 Acquired absence of lung [part of]; Z90.49 Acquired absence of other specified parts of digestive tract
CPT/HCPCS: 71250; 76705

== ENCOUNTER → 2022-11-09 | Outpatient (CLI) | payer MEDICARE, MEDICAID ==
[~2022-11-09] MED LIST changes: +ALBU8.5H6 IH; -RT-ALBUINH IH
--- NOTE | 2022-11-09 14:38 | Diagnostic Imaging Report ---
INDICATION: Enlarged lymph nodes. FINDINGS: Sonographic interrogation of the right supraclavicular region was performed. There appears to be an enlarged lymph node at this location measuring 2.1 x 0.9 x 2.3 cm. This does show vascularity. No other masses are seen. IMPRESSION: Enlarged, hypervascular right supraclavicular lymph node. This would likely be amenable to ultrasound-guided tissue sampling, if clinically indicated. Dictated by: Dictated on workstation # [id number]
== END ==
LOC: RAD 11:33
PROVIDERS: ATTEND Nurse Practitioner
DX: C34.90 Malignant neoplasm of unspecified part of unspecified bronchus or lung (principal); C77.9 Secondary and unspecified malignant neoplasm of lymph node, unspecified
CPT/HCPCS: 76604

== ENCOUNTER → 2022-11-18 | Day surgery (SDC) | payer MEDICARE, MEDICAID ==
[~2022-11-18] MED LIST changes: +LIDOCAINE 1% INJ 10 ML VIAL INJ ONE
--- NOTE | 2022-11-18 15:06 | Diagnostic Imaging Report ---
INDICATION: Enlarged right supraclavicular lymph node. EXAMINATION: Patient presents for ultrasound-guided biopsy. PROCEDURE: Patient was brought to the procedure room and placed on table in the supine position. Ultrasound imaging of the right supraclavicular region was performed to evaluate appropriate entry site. Right neck was then prepped and draped in the usual sterile fashion. Small amount of 1% lidocaine was utilized for local anesthesia. Four core biopsies of the enlarged lymph node in the right supraclavicular region were performed with an 18-gauge Temno needle. Hemostasis was obtained using manual compression. Patient tolerated the procedure well and left the Department in stable condition. IMPRESSION: Successful ultrasound-guided core biopsy of the large right supraclavicular lymph node. Pathology results are currently pending. Dictated by: Dictated on workstation # [id number]
== END ==
LOC: RAD 12:47
PROVIDERS: ATTEND Nurse Practitioner
DX: C77.9 Secondary and unspecified malignant neoplasm of lymph node, unspecified (principal); C80.1 Malignant (primary) neoplasm, unspecified
CPT/HCPCS: 76942

== ENCOUNTER → 2023-01-25 | Outpatient (CLI) | payer MEDICARE, MEDICAID ==
[~2023-01-25] VITALS: Ht 165.1 cm; Wt 54.0 kg
[~2023-01-25] MED LIST changes: +LIDOCAINE 1% INJ 10 ML VIAL ONE
--- NOTE | 2023-01-25 14:24 | Diagnostic Imaging Report ---
INDICATION: Enlarged right supraclavicular lymph node. Patient presents for some guided core biopsy. Patient brought to the procedure room placed on table in the supine position. Ultrasound imaging of the right neck was performed to evaluate appropriate entry site. Right neck was then prepped and draped usual sterile fashion. Small amount of 1% lidocaine was utilized for local anesthesia. Multiple core biopsies were obtained of the enlarged lymph node in the right supraclavicular region utilizing the 18-gauge Temno needle. Hemostasis was obtained using manual compression. Patient tolerated the procedure well and the left department in stable condition. IMPRESSION: Successful ultrasound-guided core biopsy of the enlarged right supraclavicular lymph node. Pathology results are currently pending. Dictated by: Dictated on workstation # [id number]
== END ==
LOC: RAD 12:33
PROVIDERS: ATTEND Internal Medicine Hematology & Oncology
DX: C34.11 Malignant neoplasm of upper lobe, right bronchus or lung (principal); C77.1 Secondary and unspecified malignant neoplasm of intrathoracic lymph nodes
CPT/HCPCS: 76942

== ENCOUNTER 2023-05-13 13:45 | Emergency (ER) | payer MEDICARE, MEDICAID ==
[~2023-05-13] VITALS: Ht 162 cm; Wt 56.0 kg
[~2023-05-13 13:45] MED LIST changes: -LIDOCAINE 1% INJ 10 ML VIAL INJ ONE; -LIDOCAINE 1% INJ 10 ML VIAL ONE
--- NOTE | 2023-05-13 14:04 | ED General ---
General Chief Complaint: Cardiac/General Problems Stated Complaint: RAPID HEART RATE Nursing Triage Note: SENT OVER FROM DR KULKARNI'S OFFICE WITH A RAPID HEART RATE. Source of Information: Patient Exam Limitations: No Limitations History of Present Illness Date Seen by Provider: May 13, 2023 Time Seen by Provider: 13:50 Initial Comments 48-year-old female sent over from Dr. Carter office for elevated heart rate. She has lung cancer that is recurrent and now spread to her clavicular lymph nodes. She recently had radiation a couple of months ago but is not currently on any chemotherapy or immunotherapy per her report. She states she typically has episodes of elevated heart rate, has been evaluated by Dr. Morgan with a loop recorder. She was ultimately started on metoprolol which she has not taken for the last couple of days. She states this morning it "hit me like a ton of bricks." She states she feels like an elephant is sitting on her chest and that her heart is racing. She also feels fatigued. She denies any fevers but has had some chills. No change in her chronic cough. No abdominal pain or changes in bowel or bladder habits. No skin rashes. All other systems reviewed and negative except documented per HPI. Voice recognition software was used to help create this chart Allergies and Home Medications Allergies Coded Allergies: levofloxacin (Verified Allergy, Mild, Itching, 03/01/19) Penicillins (Verified Allergy, Unknown, 03/06/15) Sulfa (Sulfonamide Antibiotics) (Verified Allergy, Unknown, Hives, 07/10/19) Patient Home Medication List Home Medication List Reviewed: Yes Albuterol Sulfate (Ventolin Hfa) 1 Puff Puff, 2 PUFF IH Q4H PRN for SHORTNESS OF BREATH, (Reported) Entered as Reported by: JACINTO LEHMAN on 03/01/19 1330 Ascorbic Acid/Ascorbate Sodium (Vitamin C 250 mg Tablet Chew) 250 Mg Tab.chew, 2 TAB.CHEW PO DAILY, (Reported) Entered as Reported by: JACINTO LEHMAN on 03/01/19 1331 Benzonatate (Benzonatate) 100 Mg Capsule, 100 MG PO TID PRN for COUGH, (Reported) Entered as Reported by: JACINTO LEHMAN on 03/01/19 1329 Fluticasone Propionate (Fluticasone Propionate) 16 Gm [place].susp, 2 SPRAYS NS DAILY, (Reported) Entered as Reported by: JACINTO LEHMAN on 03/01/19 1330 Ibuprofen (Advil) 200 Mg Tablet, 600 MG PO TID, (Reported) Entered as Reported by: JACINTO LEHMAN on 03/01/19 133 Montelukast Sodium (Montelukast Sodium) 10 Mg Tablet, 10 MG PO HS, (Reported) Entered as Reported by: OSVALDO DIAZ on 06/23/19 1301 Multivit with Calcium,Iron,Min (Women's Daily Formula) 1 Each Tablet, 1 TAB PO DAILY, (Reported) Entered as Reported by: JACINTO LEHMAN on 03/01/19 1331 Martha-3 Fatty Acids (Martha-3) 1,000 Mg Capsule, 1,000 MG PO HS, (Reported) Entered as Reported by: JACINTO LEHMAN on 03/01/19 133 Propranolol HCl (Propranolol HCl) 20 Mg Tablet, 10 MG PO QID, (Reported) Entered as Reported by: JACINTO LEHMAN on 03/01/19 1330 Vitamin B Complex (Super B-50 Complex) 1 Each Capsule, 1 CAP PO HS, (Reported) Entered as Reported by: JACINTO LEHMAN on 03/01/19 133 Review of Systems Review of Systems Constitutional: see HPI Past Dnfmftu-Tteksq-Oeptkr Hx Patient Social History Tobacco Use?: No Use of E-Cig and/or Vaping dev: No Substance use?: No Alcohol Use?: No Immunizations Up To Date Tetanus Booster (TDap): Unknown PED Vaccines UTD: Yes Seasonal Allergies Seasonal Allergies: Yes Past Medical History Surgeries: Yes (D&C, FOOT (SCREWS), PART OF CERVIX REMOVED) Adenoidectomy Respiratory: No COPD Cardiac: No Atrial Fibrillation, Irregular Heartbeat Neurological: No Reproductive Disorders: Yes (INCOMP. 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 Sexually Transmitted Disease: No HIV/AIDS: No Genitourinary: No Gastrointestinal: No Musculoskeletal: No Endocrine: No HEENT: No Loss of Vision: Bilateral Hearing Impairment: Denies Cancer: No Cervical Psychosocial: No Integumentary: No Blood Disorders: No Adverse Reaction/Blood Tranf: No Family Medical History Cancer of mouth Congenital heart disease 19 FATHER FH: asthma (mother's side) 19 MOTHER FH: brain cancer FH: heart disease (Mother and father's side) FH: ovarian cancer (Mother's side) Physical Exam Vital Signs Vital Signs - First Documented 05/13/23 13:50 Temp 36.3 Pulse 123 Resp 16 B/P (MAP) 129/78 (95) Pulse Ox 99 O2 Delivery Room Air Capillary Refill : Less Than 3 Seconds Height, Weight, BMI Height: 5'5.00" Weight: 128lbs. 6.0oz. [id number]; 21.00 BMI Method:Estimated General Appearance: No Apparent Distress, WD/WN HEENT: Normal ENT Inspection, Pharynx Normal Neck: Normal Inspection, Non Tender, Supple, Carotid Bruit Respiratory: Chest Non Tender, Lungs Clear, Normal Breath Sounds, No Accessory Muscle Use, No Respiratory Distress Cardiovascular: No Murmur, Tachycardia Gastrointestinal: No Organomegaly, Non Tender, Soft Extremity: Normal Capillary Refill, Normal Range of Motion, Non Tender, Pedal Edema (2+ pitting edema bilateral lower extremities) Neurologic/Psychiatric: Alert, Oriented x3 Skin: Normal Color, Warm/Dry Focused Exam Lactate Level 05/13/23 13:55: Lactic Acid Level 0.88 Lactic Acid Level Laboratory Tests Test 05/13/23 13:55 Lactic Acid Level 0.88 MMOL/L (0.50-2.00) Progress/Results/Core Measures Suspected Sepsis SIRS Temperature: Pulse: 123 Respiratory Rate: 16 Laboratory Tests 05/13/23 13:55: White Blood Count 11.6H Blood Pressure 129 /78 Mean: 95 05/13/23 13:55: Lactic Acid Level 0.88 Laboratory Tests 05/13/23 13:55: Creatinine 0.58L, Platelet Count 292, Total Bilirubin 0.4 Results/Orders Lab Results Laboratory Tests Test 05/13/23 13:55 05/13/23 14:00 05/13/23 14:55 Range/Units White Blood Count 11.6 H 4.3-11.0 10^3/uL Red Blood Count 4.14 3.80-5.11 10^6/uL Hemoglobin 12.6 11.5-16.0 g/dL Hematocrit 40 35-52 % Mean Corpuscular Volume 96 80-99 fL Mean Corpuscular Hemoglobin 30 25-34 pg Mean Corpuscular Hemoglobin Concent 32 32-36 g/dL Red Cell Distribution Width 14.7 H 10.0-14.5 % Platelet Count 292 130-400 10^3/uL Mean Platelet Volume 9.6 9.0-12.2 fL Immature Granulocyte % (Auto) 0 % Neutrophils (%) (Auto) 86 H 42-75 % Lymphocytes (%) (Auto) 9 L 12-44 % Monocytes (%) (Auto) 4 0-12 % Eosinophils (%) (Auto) 1 0-10 % Basophils (%) (Auto) 0 0-10 % Neutrophils # (Auto) 9.9 H 1.8-7.8 10^3/uL Lymphocytes # (Auto) 1.0 1.0-4.0 10^3/uL Monocytes # (Auto) 0.5 0.0-1.0 10^3/uL Eosinophils # (Auto) 0.1 0.0-0.3 10^3/uL Basophils # (Auto) 0.0 0.0-0.1 10^3/uL Immature Granulocyte # (Auto) 0.1 0.0-0.1 10^3/uL Sodium Level 137 135-145 MMOL/L Potassium Level 3.7 3.6-5.0 MMOL/L Chloride Level 106 98-107 MMOL/L Carbon Dioxide Level 21 21-32 MMOL/L Anion Gap 10 5-14 MMOL/L Blood Urea Nitrogen 9 7-18 MG/DL Creatinine 0.58 L 0.60-1.30 MG/DL Estimat Glomerular Filtration Rate 112 BUN/Creatinine Ratio 16 Glucose Level 103 70-105 MG/DL Lactic Acid Level 0.88 0.50-2.00 MMOL/L Calcium Level 9.2 8.5-10.1 MG/DL Corrected Calcium 9.0 8.5-10.1 MG/DL Total Bilirubin 0.4 0.1-1.0 MG/DL Aspartate Amino Transf (AST/SGOT) 13 5-34 U/L Alanine Aminotransferase (ALT/SGPT) 11 0-55 U/L Alkaline Phosphatase 68 40-136 U/L Troponin I < 0.028 <0.028 NG/ML Total Protein 7.7 6.4-8.2 GM/DL Albumin 4.2 3.2-4.5 GM/DL Influenza Type A (RT-PCR) Not Detected Not Detecte Influenza Type B (RT-PCR) Not Detected Not Detecte SARS-CoV-2 RNA (RT-PCR) Not Detected Not Detecte Urine Color YELLOW Urine Clarity CLEAR Urine pH 7.0 5-9 Urine Specific [place] 1.010 L 1.016-1.022 Urine Protein NEGATIVE NEGATIVE Urine Glucose (UA) NEGATIVE NEGATIVE Urine Ketones NEGATIVE NEGATIVE Urine Nitrite NEGATIVE NEGATIVE Urine Bilirubin NEGATIVE NEGATIVE Urine Urobilinogen 0.2 < = 1.0 MG/DL Urine Leukocyte Esterase NEGATIVE NEGATIVE Urine RBC (Auto) NEGATIVE NEGATIVE Urine RBC NONE /HPF Urine WBC NONE /HPF Urine Squamous Epithelial Cells 0-2 /HPF Urine Crystals NONE /LPF Urine Bacteria NEGATIVE /HPF Urine Casts NONE /LPF Urine Mucus NEGATIVE /LPF Urine Culture Indicated NO My Orders Orders - SHARIANNIE DO Ekg Tracing (05/13/23 13:49) Comprehensive Metabolic Panel (05/13/23 14:00) Ua Culture If Indicated (05/13/23 14:00) Troponin I Zeynep (05/13/23 14:00) Chest 1 View, Ap/Pa Only (05/13/23 14:00) Ekg Tracing (05/13/23 14:00) Cbc And Automated Diff (05/13/23 14:00) Covid 19 Inhouse Test (05/13/23 14:00) Influenza A And B By Pcr (05/13/23 14:00) Blood Culture (05/13/23 14:01) Ed Iv/Invasive Line Start (05/13/23 14:01) Lactic Acid Analyzer (05/13/23 14:01) Ns Iv 500 Ml (Ns Iv 500 Ml) (05/13/23 15:03) Vital Signs/I&O 05/13/23 13:50 Temp 36.3 Pulse 123 Resp 16 B/P (MAP) 129/78 (95) Pulse Ox 99 O2 Delivery Room Air Capillary Refill : Less Than 3 Seconds Blood Pressure Mean: 95 ECG Comment Sinus tachycardia with a rate of 116 bpm. Normal intervals. Normal axis. No ST or T wave abnormalities. No ectopy. No STEMI. Departure Communication (Admissions) Patient initially with sinus tachycardia. Looks in her records showing a positive tilt table test in the last couple of years. Dr. Farias thought at this time that this was likely related to dehydration as she had low blood pressure as well as elevated heart rate. With that I gave her some IV fluids and her heart rate improved. Her blood pressure she states typically run about 100 systolic which is right where she is today. She is afebrile and nontoxic. Very slight elevation of white blood cell count. No evidence for overt infection at this time. Radiology read chest x-ray as possible pneumonia, atelectasis in the right upper lobe however this is the area of her previous surgery, lobectomy and I think this changes likely from her surgery and not related to acute infection. She does not have any other symptoms consistent with pneumonia at this time. Her chest pressure resolved with slowing of her heart rate after IV fluids. UA shows no evidence for infection. Labs are otherwise reassuring. She is discharged home in stable condition with supportive care. Impression Primary Impression: Palpitations Disposition: HOME, SELF-CARE Condition: Stable Departure-Patient Inst. Referrals: CHIKI MCCONNELL MD (PCP/Family) Primary Care Physician Patient Instructions: Palpitations Add. Discharge Instructions: No emergent medical conditions identified for your symptoms today. I do think you are slightly dehydrated. Increase your fluids at home and rest. Continue your antibiotics as previously prescribed. Return to the emergency department f or any severe concerns. Follow-up with your primary doctor for any nonemergent needs. All discharge instructions reviewed with patient and/or family. Voiced understanding. ANNIE MCCARTHY DO May 13, 2023 14:04
[2023-05-13 14:08] LABS: BASOPHILS % (AUTO) 0 % (0-10); EOSINOPHILS # (AUTO) 0.1 10^3/uL (0.0-0.3); EOSINOPHILS % (AUTO) 1 % (0-10); HEMATOCRIT 40 % (35-52); HEMOGLOBIN 12.6 g/dL (11.5-16.0); LYMPHOCYTES % (AUTO) 9 % (12-44); MEAN CORPUSCULAR HEMOGLOBIN 30 pg (25-34); MEAN CORPUSCULAR HGB CONC 32 g/dL (32-36); MEAN CORPUSCULAR VOLUME 96 fL (80-99); MEAN PLATELET VOLUME 9.6 fL (9.0-12.2); MONOCYTES # (AUTO) 0.5 10^3/uL (0.0-1.0); MONOCYTES % (AUTO) 4 % (0-12); NEUTROPHILS # (AUTO) 9.9 10^3/uL (1.8-7.8); NEUTROPHILS % (AUTO) 86 % (42-75); PLATELET COUNT 292 10^3/uL (130-400); WHITE BLOOD COUNT 11.6 10^3/uL (4.3-11.0)
[2023-05-13 14:12] LABS: ALBUMIN 4.2 GM/DL (3.2-4.5); CHLORIDE 106 MMOL/L (98-107); POTASSIUM 3.7 MMOL/L (3.6-5.0); SODIUM 137 MMOL/L (135-145)
[2023-05-13 14:13] LABS: CALCIUM 9.2 MG/DL (8.5-10.1)
[2023-05-13 14:14] LABS: GLUCOSE 103 MG/DL (70-105); TOTAL PROTEIN 7.7 GM/DL (6.4-8.2)
[2023-05-13 14:16] LABS: BILIRUBIN,TOTAL 0.4 MG/DL (0.1-1.0); CARBON DIOXIDE 21 MMOL/L (21-32)
[2023-05-13 14:18] LABS: ALKALINE PHOSPHATASE 68 U/L (40-136); CREATININE SERUM 0.58 MG/DL (0.60-1.30); GFR ESTIMATED 112
[2023-05-13 14:19] LABS: BUN/CREATININE RATIO 16
[2023-05-13 14:21] LABS: ALANINE AMINOTRANSFERASE 11 U/L (0-55)
--- NOTE | 2023-05-13 14:38 | Diagnostic Imaging Report ---
EXAMINATION: Chest 1 view HISTORY: Chest pain COMPARISON: 09/24/2019. FINDINGS: Heart size and pulmonary vasculature are normal. There are prominent opacities within the right upper lung. Streaky linear opacities are present in the lung bases. No pleural effusion or pneumothorax. Left-sided Port-A-Cath is present. Degenerative changes of the thoracic spine. Osseous structures are otherwise intact. IMPRESSION: 1. Right upper lobe opacification which could be seen with atelectasis, pneumonia, or postoperative change. This is new from 09/24/2019. Dictated by: Dictated on workstation # [id number]
[2023-05-13] MEDS ORDERED: NS IV 500 ML 500 ML IV STA (15:03)
[2023-05-13 15:19] LABS: BILIRUBIN,URINE NEGATIVE (NEGATIVE); CLARITY,URINE CLEAR; COLOR,URINE YELLOW; GLUCOSE, URINE (UA) NEGATIVE (NEGATIVE); KETONES,URINE NEGATIVE (NEGATIVE); NITRITE,URINE NEGATIVE (NEGATIVE); PROTEIN,URINE NEGATIVE (NEGATIVE)
[2023-05-13 15:20] LABS: BACTERIA,URINE NEGATIVE /HPF; LEUKOCYTE ESTERASE ,URINE NEGATIVE (NEGATIVE); SQUAMOUS EPITHELIAL CELL,UR 0-2 /HPF
[2023-05-13 15:39] VITALS: BP 96/79
== END 2023-05-13 15:39 | disposition home or self-care (01) ==
LOC: EDUNIT# 13:45 → ER 13:49
DX: R00.2 Palpitations (principal); R00.0 Tachycardia, unspecified
CPT/HCPCS: 36415; 71045; 80053; 81000; 83605; 84484; 85025; 87040; 87636; 93005

== ENCOUNTER → 2023-05-17 | Outpatient (CLI) | payer MEDICARE, MEDICAID ==
[2023-05-17 11:28] LABS: POTASSIUM 4.1 MMOL/L (3.6-5.0)
[2023-05-17 11:29] LABS: CALCIUM 9.3 MG/DL (8.5-10.1)
[2023-05-17 11:33] LABS: CREATININE SERUM 0.66 MG/DL (0.60-1.30)
[2023-05-17 11:36] LABS: MAGNESIUM 1.8 MG/DL (1.6-2.4)
== END ==
LOC: LAB 10:58
PROVIDERS: ATTEND Internal Medicine Cardiovascular Disease
DX: R00.0 Tachycardia, unspecified (principal)
CPT/HCPCS: 36415; 80048; 83735; 84443